=== PATIENT | male | born 1950 | race Caucasian/White ===

== ENCOUNTER 2018-04-08 14:35 | Inpatient (IN) | payer MEDICARE ==
[2018-04-08] MEDS ORDERED: LIDOCAINE 1% 20 ML VIAL (10MG/ML) FOR IV START INTRADERMA ONE (15:20)
[2018-04-08] MEDS ORDERED: LACTATED RINGERS 1,000 ML IV ONE (15:38)
[2018-04-08] MEDS ORDERED: ONDANSETRON 4 MG/2 ML VIAL IVP STA (16:20)
[2018-04-08] MEDS ORDERED: DEXAMETHASONE SOD PHOSPHATE 10 MG/ML 1 ML VIAL IV STA (16:21)
[2018-04-08 16:47] LABS: Anion Gap 9 mmol/L; Blood Urea Nitrogen 14 mg/dL (9-20); Calcium 9.4 mg/dL (8.4-10.2); Carbon Dioxide 25 mmol/L (22-30); Chloride 103 mmol/L (98-107); Glucose 86 mg/dL (74-99); Potassium 4.1 mmol/L (3.5-5.1); Sodium 137 mmol/L (137-145)
[2018-04-08] MEDS ORDERED: ceFAZolin IN SWFI 2 GM/20 ML SYRINGE IVP ONE (17:08)
--- NOTE | 2018-04-08 17:37 | P.GSHP ---
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 He has been treated with antibiotics in the past and we discussed potentially excising this area and debriding to help with the healing process. He denies any fevers, chills, chest pain or shortness of breath. Its today for excision and debridement of his left medial thigh wound. - Review of Systems All systems: negative Past Medical History Past Medical History: Deep Vein Thrombosis (DVT), GERD/Reflux, Hyperlipidemia, Hypertension, Osteoarthritis (OA), Rheumatoid Arthritis (RA) History of Any Multi-Drug Resistant Organisms: None Reported Past Surgical History: Adenoidectomy, Appendectomy, Back Surgery, Heart Catheterization, Tonsillectomy Additional Past Surgical History / Comment(s): pt had surgery on Left leg 1 month ago, had blockage that was bypassed, pt unsure of name of procedure, Fem Pop Bypass. Cataract surgery, pionadal cyst Past Anesthesia/Blood Transfusion Reactions: No Reported Reaction Past Psychological History: No Psychological Hx Reported Smoking Status: Former smoker Past Alcohol Use History: Occasional Additional Past Alcohol Use History / Comment(s): pt hardly drinks etoh Past Drug Use History: None Reported - Past Family History Brother(s) Family Medical History: Diabetes Mellitus Father Family Medical History: Cancer Medications and Allergies Home Medications Medication Instructions Recorded Confirmed Type Aspirin 81 mg PO DAILY 04/08/18 04/08/18 History Atenolol/Chlorthalidone 1 tab PO DAILY 04/08/18 04/08/18 History [Atenolol-Chlorthalidone 50-25] Atorvastatin [Lipitor] 40 mg PO DAILY 04/08/18 04/08/18 History Cholecalciferol [Vitamin D3] 1,000 unit PO DAILY 04/08/18 04/08/18 History Cilostazol [Pletal] 100 mg PO DAILY 04/08/18 04/08/18 History Clopidogrel [Plavix] 75 mg PO DAILY 04/08/18 04/08/18 History Gabapentin [Neurontin] 1 tab PO HS 04/08/18 04/08/18 History Lisinopril [Zestril] 5 mg PO DAILY 04/08/18 04/08/18 History Tiotropium 18 Mcg/Puff [Spiriva] 18 mcg INHALATION DAILY 04/08/18 04/08/18 History clonazePAM [Clonazepam] 1 mg PO HS 04/08/18 04/08/18 History Allergies Allergy/AdvReac Type Severity Reaction Status Date / Time Sulfa (Sulfonamide Allergy Unknown Verified 04/08/18 16:30 Antibiotics) Surgical - Exam Vital Signs Temp Pulse Resp BP Pulse Ox 97.4 F L 67 16 118/72 98 04/08/18 15:05 04/08/18 15:05 04/08/18 15:05 04/08/18 15:05 04/08/18 15:05 Left medial thigh wound measuring approximately 1 x 1 cm with approximately 2 cm of tunneling. There is erythema surrounding the area and cloudy discharge. There is no malodor. - General well developed, well nourished, no distress - Eyes PERRL, normal ocular movement - ENT normal pinna, normal nares - Neck trachea midline - Respiratory normal expansion, normal respiratory effort - Cardiovascular Rhythm: regular - Abdomen Abdomen: soft, non tender Hernia: none - Integumentary no growths - Neurologic normal coordination - Psychiatric oriented to time, oriented to person, oriented to place Results - Labs 04/08/18 15:32 Diabetes panel 04/08/18 Range/Units 15:32 Sodium 137 (137-145) mmol/L Potassium 4.1 (3.5-5.1) mmol/L Chloride 103 (98-107) mmol/L Carbon Dioxide 25 (22-30) mmol/L BUN 14 (9-20) mg/dL Creatinine 0.75 (0.66-1.25) mg/dL Glucose 86 (74-99) mg/dL Calcium 9.4 (8.4-10.2) mg/dL Calcium panel 04/08/18 Range/Units 15:32 Calcium 9.4 (8.4-10.2) mg/dL Pituitary panel 04/08/18 Range/Units 15:32 Sodium 137 (137-145) mmol/L Potassium 4.1 (3.5-5.1) mmol/L Chloride 103 (98-107) mmol/L Carbon Dioxide 25 (22-30) mmol/L BUN 14 (9-20) mg/dL Creatinine 0.75 (0.66-1.25) mg/dL Glucose 86 (74-99) mg/dL Calcium 9.4 (8.4-10.2) mg/dL Adrenal panel 04/08/18 Range/Units 15:32 Sodium 137 (137-145) mmol/L Potassium 4.1 (3.5-5.1) mmol/L Chloride 103 (98-107) mmol/L Carbon Dioxide 25 (22-30) mmol/L BUN 14 (9-20) mg/dL Creatinine 0.75 (0.66-1.25) mg/dL Glucose 86 (74-99) mg/dL Calcium 9.4 (8.4-10.2) mg/dL Assessment and Plan Assessment: Nonhealing Left medial thigh wound Plan: OR for excision and debridement
[2018-04-08] MEDS ORDERED: fentaNYL (PF) 50 MCG/ML 2 ML AMP ONE (17:40)
[2018-04-08] MEDS ORDERED: MIDAZOLAM 2 MG/2 ML VIAL ONE (17:40)
[2018-04-08] MEDS ORDERED: PROPOFOL 10 MG/ML 20 ML VIAL IV ONE (17:40)
[2018-04-08] MEDS ORDERED: KETAMINE 10 MG/ML 20 ML VIAL ONE (17:40)
[2018-04-08] MEDS ORDERED: SODIUM CHLORIDE 0.9% 50 ML with ceFAZolin 2,000 MG IV ONE ×2 (17:50)
[2018-04-08] MEDS ORDERED: BUPIVACAIN-EPI 0.5%-1:200,000 30 ML VIAL SQ ONE ×2 (17:54)
[2018-04-08] MEDS ORDERED: FAMOTIDINE 20 MG/2 ML VIAL IV ONE (18:36)
[2018-04-08] MEDS ORDERED: MAG HYDROX/AL HYDROX/SIMETH 30 ML CUP PO PRN (18:37)
[2018-04-08] MEDS ORDERED: NALOXONE 0.4 MG/ML 1 ML VIAL IV PRN (18:49)
[2018-04-08] MEDS ORDERED: HYDROmorphone 1 MG/ML 1 ML SYRINGE IVP PRN (18:49)
[2018-04-08] MEDS ORDERED: ALBUTEROL NEBULIZED 1.25 MG/3 ML INHALATION ONE (18:50)
--- NOTE | 2018-04-08 19:04 | XR ---
EXAMINATION TYPE: XR chest 1V portable DATE OF EXAM: 04/08/2018 COMPARISON: 09/26/2008 HISTORY: Aspiration TECHNIQUE: Single frontal view of the chest is obtained. FINDINGS: Heart and mediastinum are normal. Lungs are clear. Costophrenic angles are clear. There ar e chest leads. Bony thorax is intact. IMPRESSION: No active cardiopulmonary disease. Normal heart. No change.
--- NOTE | 2018-04-08 19:33 | P.OP ---
Date of Procedure: 04/08/18 Preoperative Diagnosis: Left medial thigh wound Postoperative Diagnosis: Left medial thigh abscess with infected graft remnant Procedure(s) Performed: Excisional debridement of left medial thigh wound and excision of portion of previous [place] bypass. Anesthesia: MAC Surgeon: Fish Fulton Estimated Blood Loss (ml): 20 Pathology: other (Left medial thigh wound culture, tissue culture, portion of infected bypass remnant) Condition: stable Disposition: PACU Indications for Procedure: 68-year-old gentleman who presented originally to the office with complaints of left medial thigh drainage from a previous femoral to popliteal bypass. Patient had bypass surgery revision months ago which those incisions have healed. His previous bypass which was performed years ago began getting indurated and over the last couple months has been draining. We have been doing local wound care with silver nitrate as well asl with no improvement. Upon his last visit he stated no improvement and drainage had increased therefore he presents today for excisional debridement of the area. He denies any fevers, chills, chest pain or shortness of breath. He did have antibiotic treatment as an outpatient on multiple occasions. Operative Findings: Left medial wound with dense scarring as well as a pocket of old blood and purulent drainage. There was an old graft that appeared to have murky fluid around it and coming out from it. Description of Procedure: After written informed consent was obtained the patient all risks benefits and competitions were described the patient is brought to the operative suite and laid in a supine position. The area of the left medial thigh was prepped and draped in usual sterile fashion after appropriate anesthetic was performed per the anesthesiologist. Timeout was performed in normal fashion antibiotics were administered prior to incision. An elliptical incision was then created around the area of drainage and induration. Dissection was then carried down with a scalpel around this area to healthy-appearing fat. Upon dissection approximately 3-4 cm deep there was a pocket of what appeared to be necrotic fat and purulent type tissue. The deep tissue was cultured as well as the fluid and the tissue was excised and upon excision it was noted to have a portion of the previous [place] bypass graft. This was ligated with a 3-0 silk suture. A portion of this bypass was cut and sent for pathology. The dissected tissue was resected and sent for pathology and culture. The wound was copiously irrigated with hydrogen peroxide as well as saline. Hemostasis was assured with electrocautery. There was no active bleeding and dissection was carried down to what appeared to be healthy fascia and muscle tissue. There was a track that went up towards the leg and thigh which was expressed of all fluid. The total area of wound measured 5 cm x 3 cm by proximally 3-4 cm in depth. The area was then packed with Betadine soaked gauze. The area was cleansed and dressings were placed. The patient tolerated the procedure well and was sent to PACU for recovery.
[2018-04-08] MEDS: GABAPENTIN 400 MG CAP PO SCH (21:48)
[2018-04-08] MEDS: clonazePAM 1 MG TAB PO SCH (21:48)
[2018-04-08] MEDS ORDERED: BENZOCAINE/MENTHOL LOZENG 1 EACH LOZENGE MUCOUS MEM PRN (23:13)
[2018-04-09] MEDS: HEPARIN SODIUM,PORCINE 5,000 UNIT/ML 1 ML VIAL SQ SCH ×4 (01:50→22:57)
[2018-04-09] MEDS: ceFAZolin IN SWFI 2 GM/20 ML SYRINGE IVP SCH ×4 (01:51→22:57)
[2018-04-09] MEDS: oxyCODONE-APAP 5-325MG 1 EACH TAB PO PRN ×5 (02:18→22:56)
[2018-04-09 06:45] LABS: Basophils % (A) 0 %; Eosinophils % (A) 0 %; Lymphocytes # (A) 0.7 k/uL (1.0-4.8); Lymphocytes % (A) 4 %; MCH 27.3 pg (25.0-35.0); MCHC 31.6 g/dL (31.0-37.0); MCV 86.5 fL (80.0-100.0); Mean Platelet Volume 7.3; Monocytes # (A) 0.8 k/uL (0-1.0); Monocytes % (A) 4 %; Neutrophils % (A) 91 %; Platelet Count 242 k/uL (150-450); RBC 4.74 m/uL (4.30-5.90); RDW 15.6 % (11.5-15.5); WBC 18.7 k/uL (3.8-10.6)
[2018-04-09] MEDS: IPRATROPIUM 0.5 MG/2.5 ML NEBU INHALATION SCH ×4 (07:21→19:25)
--- NOTE | 2018-04-09 08:33 | P.PN ---
Subjective Progress Note Date: 04/09/18 Principal diagnosis: Infected fem-pop bypass graft Patient had the infected portion of the fem-pop [place] graft removed in the OR yesterday by Dr. Fulton. He is without complaints today. Objective - Vital Signs Vital signs: Vital Signs Temp 98.7 F 04/09/18 01:10 Pulse 74 04/09/18 07:24 Resp 16 04/09/18 01:10 BP 106/61 04/09/18 01:10 Pulse Ox 92 L 04/09/18 01:10 Intake & Output 04/08/18 04/09/18 04/09/18 18:59 06:59 18:59 Intake Total 1100 1230 Output Total 25 1310 Balance 1075 -80 Weight 97.522 kg Intake: IV 1100 Intake, IV Titration 690 Amount Lactated Ringers 1,000 ml 690 @ 0 mls/hr IV .[facility] Rx#:[id number] Oral 540 Output: Urine 1310 Estimated Blood Loss 25 Other: Voiding Method Urinal # Voids 1 - Exam The thigh wound is clean. There was a bit of oozing from the base. - Labs CBC & Chem 7: 04/09/18 06:15 04/08/18 15:32 Labs: Abnormal Lab Results - Last 24 Hours (Table) 04/09/18 Range/Units 06:15 WBC 18.7 H (3.8-10.6) k/uL RDW 15.6 H (11.5-15.5) % Neutrophils # 17.0 H (1.3-7.7) k/uL Lymphocytes # 0.7 L (1.0-4.8) k/uL Microbiology - Last 24 Hours (Table) 04/08/18 18:15 Tissue Culture - Preliminary Thigh - Left 04/08/18 18:15 Anaerobic Culture - Preliminary Thigh - Left 04/08/18 18:15 Fungal Culture - Preliminary Thigh - Left 04/08/18 18:15 Acid Fast Bacilli Culture - Preliminary Thigh - Left 04/08/18 18:15 Anaerobic Culture - Preliminary Thigh - Left 04/08/18 18:15 Tissue Culture - Preliminary Thigh - Left 04/08/18 18:15 Fungal Culture - Preliminary Thigh - Left 04/08/18 18:15 Acid Fast Bacilli Culture - Preliminary Thigh - Left 08/08/18 18:15 Fungal Culture - Preliminary Thigh - Left 04/08/18 18:15 Wound Culture - Preliminary Thigh - Left 04/08/18 18:15 Anaerobic Culture - Preliminary Thigh - Left Assessment and Plan (1) Infection, vascular device Current Visit: Yes Status: Acute Code(s): T82.7XXA - INFECT/INFLM REACT D/T OTH CARDI/VASC DEV/IMPLNT/GRFT, INIT SNOMED Code(s): 62471208 Plan: Dr. Jaime will be seeing the patient for infectious disease. We will place absorptive silver in the wound today. Hopefully by tomorrow the mild bleeding will subside and we will be able to place a wound VAC and have the patient discharged. He is to keep the legs elevated as much as possible in the meantime.
[2018-04-09] MEDS: LISINOPRIL 5 MG TAB PO SCH (09:27)
[2018-04-09] MEDS: ATORVASTATIN 40 MG TAB PO SCH (09:27)
[2018-04-09] MEDS: ASPIRIN 81 MG PO SCH (09:28)
[2018-04-09] MEDS: ATENOLOL 50 MG TAB PO SCH (09:28)
[2018-04-09] MEDS: CHOLECALCIFEROL 1,000 UNIT TAB PO SCH (09:28)
[2018-04-09] MEDS: CHLORTHALIDONE 25 MG TAB PO SCH (09:29)
[2018-04-09] MEDS: CILOSTAZOL 100 MG TAB PO SCH (09:29)
[2018-04-09] MEDS: CLOPIDOGREL 75 MG TAB PO SCH (09:32)
--- NOTE | 2018-04-09 10:13 | P.CONS ---
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 Patient presented to vascular surgery with a medial 5 wound which has not healed over the past month. He was brought in by vascular surgery and underwent an excisional debridement of the left wound with a portion of the [place] bypass removed. Patient is scheduled for wound VAC placement today. He has been on. Surgical. Patient has been afebrile. White count is 18.7, BUN 14 crit is 0.75. Patient denies having any lightheadedness, dizziness, nausea, vomiting or diarrhea. Patient recently quit smoking about 1 month ago. Patient has history of rheumatoid arthritis but not currently on any medication. Review of Systems All systems: negative Constitutional: Denies chills, Denies fatigue, Denies fever, Denies poor appetite, Denies weight loss Eyes: denies blurred vision, denies pain Ears, nose, mouth and throat: Denies dental pain, Denies headache, Denies mouth pain, Denies sore throat, Denies vertigo Cardiovascular: Denies chest pain, Denies decreased exercise tolerance, Denies dyspnea on exertion, Denies edema, Denies leg edema, Denies lightheadedness, Denies shortness of breath, Denies syncope Respiratory: Denies cough Gastrointestinal: Denies abdominal pain, Denies diarrhea, Denies loss of appetite, Denies nausea, Denies vomiting Musculoskeletal: Reports low back pain, Denies myalgias Integumentary: Reports wounds, Denies pruritus, Denies rash Neurological: Denies numbness, Denies weakness Psychiatric: Denies anxiety, Denies depression Endocrine: Denies fatigue, Denies weight change Past Medical History Past Medical History: COPD, Deep Vein Thrombosis (DVT), GERD/Reflux, Hyperlipidemia, Hypertension, Osteoarthritis (OA), Rheumatoid Arthritis (RA) Additional Past Medical History / Comment(s): Popliteal artery aneurysm History of Any Multi-Drug Resistant Organisms: None Reported Past Surgical History: Adenoidectomy, Appendectomy, Back Surgery, Heart Catheterization, Tonsillectomy Additional Past Surgical History / Comment(s): Fem Pop Bypass secondary to popliteal artery aneurysm. Cataract surgery, pionadal cyst Past Anesthesia/Blood Transfusion Reactions: No Reported Reaction Past Psychological History: No Psychological Hx Reported Smoking Status: Former smoker Past Alcohol Use History: Occasional Additional Past Alcohol Use History / Comment(s): pt hardly drinks etoh Past Drug Use History: None Reported Additional Drug Use History / Comment(s): Patient was a smoker of one and half packs per day for greater than 40 years and quit one month ago. No illicit drug use. Rare alcohol intake. 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 He lives at home with his and there is one cat in the home. - Past Family History Brother(s) Family Medical History: Diabetes Mellitus Father Family Medical History: Cancer Medications and Allergies Home Medications Medication Instructions Recorded Confirmed Type Aspirin 81 mg PO DAILY 04/08/18 04/08/18 History Atenolol/Chlorthalidone 1 tab PO DAILY 04/08/18 04/08/18 History [Atenolol-Chlorthalidone 50-25] Atorvastatin [Lipitor] 40 mg PO DAILY 04/08/18 04/08/18 History Cholecalciferol [Vitamin D3] 1,000 unit PO DAILY 04/08/18 04/08/18 History Cilostazol [Pletal] 100 mg PO DAILY 04/08/18 04/08/18 History Clopidogrel [Plavix] 75 mg PO DAILY 04/08/18 04/08/18 History Gabapentin [Neurontin] 1 tab PO HS 04/08/18 04/08/18 History Lisinopril [Zestril] 5 mg PO DAILY 04/08/18 04/08/18 History Tiotropium 18 Mcg/Puff [Spiriva] 18 mcg INHALATION DAILY 04/08/18 04/08/18 History clonazePAM [Clonazepam] 1 mg PO HS 04/08/18 04/08/18 History Allergies Allergy/AdvReac Type Severity Reaction Status Date / Time Sulfa (Sulfonamide Allergy Unknown Verified 04/08/18 16:30 Antibiotics) Physical Exam Vitals: Vital Signs Temp Pulse Pulse Resp BP Pulse Ox 04/09/18 07:24 74 04/09/18 07:15 98.9 F 87 18 116/79 93 L 04/09/18 05:49 86 04/09/18 01:10 98.7 F 110 H 16 106/61 92 L 04/09/18 00:01 16 04/08/18 21:48 98.8 F 77 18 131/81 97 04/08/18 21:40 98.8 F 70 18 136/84 94 L 04/08/18 21:25 80 118/64 04/08/18 21:10 78 131/72 94 L 04/08/18 20:55 80 18 137/82 96 04/08/18 20:40 98.9 F 84 18 156/87 96 04/08/18 20:25 79 143/89 95 04/08/18 20:10 81 143/77 95 04/08/18 19:55 76 136/82 94 L 04/08/18 19:40 98.8 F 77 17 131/80 92 L 04/08/18 19:15 78 18 122/66 100 04/08/18 19:00 76 20 124/77 100 04/08/18 18:45 79 20 133/77 96 04/08/18 18:35 98 F 77 20 126/75 94 L 04/08/18 15:05 97.4 F L 67 16 118/72 98 Intake and Output 04/08/18 04/09/18 04/09/18 22:59 06:59 14:59 Intake Total 1100 1230 240 Output Total 125 1210 Balance 975 20 240 Intake: IV 1100 Intake, IV Titration 690 Amount Lactated Ringers 1,000 ml 690 @ 0 mls/hr IV .[facility] Rx#:[id number] Oral 540 240 Output: Urine 100 1210 Estimated Blood Loss 25 Other: Voiding Method Urinal # Voids 1 Gen: This is a 68-year-old male. He is sitting up in bed and appears to be comfortable and in no acute distress. HEENT: Head is atraumatic, normocephalic. Pupils equal, round. Sclerae is anicteric. Oral mucous membranes are moist. NECK: Supple. No JVD. No lymphadenopathy. No thyromegaly. LUNGS: Clear to auscultation. No wheezes or rhonchi. No intercostal retractions. HEART: Regular rate and rhythm. No murmur. ABDOMEN: Soft. Bowel sounds are present. No masses. No tenderness. EXTREMITIES: No pedal edema. No calf tenderness. Dorsalis pedis 1+ bilaterally. Patient has a dressing in place to the left thigh that was not removed during exam. Deferred to Dr. Jaime. NEUROLOGICAL: Patient is awake, alert and oriented x3. Cranial nerves 2 through 12 are grossly intact. Results Results: Laboratory Results WBC 18.7 k/uL (3.8-10.6) H 04/09/18 06:15 RBC 4.74 m/uL (4.30-5.90) 04/09/18 06:15 Hgb 13.0 gm/dL (13.0-17.5) 04/09/18 06:15 Hct 41.0 % (39.0-53.0) 04/09/18 06:15 MCV 86.5 fL (80.0-100.0) 04/09/18 06:15 MCH 27.3 pg (25.0-35.0) 04/09/18 06:15 MCHC 31.6 g/dL (31.0-37.0) 04/09/18 06:15 RDW 15.6 % (11.5-15.5) H 04/09/18 06:15 Plt Count 242 k/uL (150-450) 04/09/18 06:15 Neutrophils % 91 % 04/09/18 06:15 Lymphocytes % 4 % 04/09/18 06:15 Monocytes % 4 % 04/09/18 06:15 Eosinophils % 0 % 04/09/18 06:15 Basophils % 0 % 04/09/18 06:15 Neutrophils # 17.0 k/uL (1.3-7.7) H 04/09/18 06:15 Lymphocytes # 0.7 k/uL (1.0-4.8) L 04/09/18 06:15 Monocytes # 0.8 k/uL (0-1.0) 04/09/18 06:15 Eosinophils # 0.0 k/uL (0-0.7) 04/09/18 06:15 Basophils # 0.0 k/uL (0-0.2) 04/09/18 06:15 Sodium 137 mmol/L (137-145) 04/08/18 15:32 Potassium 4.1 mmol/L (3.5-5.1) 04/08/18 15:32 Chloride 103 mmol/L (98-107) 04/08/18 15:32 Carbon Dioxide 25 mmol/L (22-30) 04/08/18 15:32 Anion Gap 9 mmol/L 04/08/18 15:32 BUN 14 mg/dL (9-20) 04/08/18 15:32 Creatinine 0.75 mg/dL (0.66-1.25) 04/08/18 15:32 Est GFR (CKD-EPI)AfAm >90 (>60 ml/min/1.73 sqM) 04/08/18 15:32 Est GFR (CKD-EPI)NonAf >90 (>60 ml/min/1.73 sqM) 04/08/18 15:32 Glucose 86 mg/dL (74-99) 04/08/18 15:32 Calcium 9.4 mg/dL (8.4-10.2) 04/08/18 15:32 CBC & Chem 7: 04/09/18 06:15 04/08/18 15:32 Labs: Abnormal Lab Results - Last 24 Hours (Table) 04/09/18 Range/Units 06:15 WBC 18.7 H (3.8-10.6) k/uL RDW 15.6 H (11.5-15.5) % Neutrophils # 17.0 H (1.3-7.7) k/uL Lymphocytes # 0.7 L (1.0-4.8) k/uL Microbiology - Last 24 Hours (Table) 04/08/18 18:15 Gram Stain - Preliminary Thigh - Left Tissue Culture - Preliminary 04/08/18 18:15 Gram Stain - Preliminary Thigh - Left Wound Culture - Preliminary 04/08/18 18:15 Tissue Culture - Preliminary Thigh - Left 04/08/18 18:15 Anaerobic Culture - Preliminary Thigh - Left 04/08/18 18:15 Fungal Culture - Preliminary Thigh - Left 04/08/18 18:15 Acid Fast Bacilli Culture - Preliminary Thigh - Left 04/08/18 18:15 Anaerobic Culture - Preliminary Thigh - Left 04/08/18 18:15 Fungal Culture - Preliminary Thigh - Left 04/08/18 18:15 Acid Fast Bacilli Culture - Preliminary Thigh - Left 04/08/18 18:15 Fungal Culture - Preliminary Thigh - Left 04/08/18 18:15 Anaerobic Culture - Preliminary Thigh - Left Assessment and Plan Plan: This is a 68-year-old male patient who presented to the hospital with wound to the medial left thigh status post excisional debridement and removal of previous [place] bypass. Patient is currently on Kefzol and will be started vanco. Wound VAC has been ordered for today. Lantus for discharge home tomorrow. Antibiotics will be arranged for discharge. Continue supportive care. Further recommendations as patient progresses. The above dictated assessment and findings were discussed with Dr. Jaime. The impression and plan of care have been directed as dictated. Luba Donohue nurse practitioner acting as scribe for Dr. Jaime.
[2018-04-09] MEDS ORDERED: VANCOMYCIN IV PER PHARMACY 1 EACH MISC MISCELLANE PRN (11:20)
[2018-04-09 11:56] VITALS: BMI 30.8
[2018-04-09] MEDS: VANCOMYCIN 1,750 MG in SODIUM CHLORIDE 0.9% 500 ML IVPB SCH ×2 (12:34→20:20)
--- NOTE | 2018-04-09 15:54 | P.CONS ---
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 Fulton and has had a nonhealing medial thigh wound over the past month. Patient came in for an elective excisional debridement of the left medial thigh wound and excision of portion of previous [place] bypass with Dr. Fulton yesterday. Patient has known medical history of deep vein thrombosis, GERD, hyperlipidemia, hypertension, osteoarthritis, rheumatoid arthritis, heart cath, COPD and ex-smoker. Patient has been started on his home medication per Dr. Fulton. Dr. Jaime has been consulted for infectious disease. Patient is currently on Kefzol and vancomycin. Denies chest pain or shortness of breath at this time. Patient denies nausea vomiting or diarrhea. Patient denies any urinary frequency urgency. Review of Systems Please refer to HPI otherwise unremarkable Past Medical History Past Medical History: COPD, Deep Vein Thrombosis (DVT), GERD/Reflux, Hyperlipidemia, Hypertension, Osteoarthritis (OA), Rheumatoid Arthritis (RA) Additional Past Medical History / Comment(s): Popliteal artery aneurysm History of Any Multi-Drug Resistant Organisms: None Reported Past Surgical History: Adenoidectomy, Appendectomy, Back Surgery, Heart Catheterization, Tonsillectomy Additional Past Surgical History / Comment(s): Fem Pop Bypass secondary to popliteal artery aneurysm. Cataract surgery, pionadal cyst Past Anesthesia/Blood Transfusion Reactions: No Reported Reaction Past Psychological History: No Psychological Hx Reported Smoking Status: Former smoker Past Alcohol Use History: Occasional Additional Past Alcohol Use History / Comment(s): pt hardly drinks etoh Past Drug Use History: None Reported Additional Drug Use History / Comment(s): Patient was a smoker of one and half packs per day for greater than 40 years and quit one month ago. No illicit drug use. Rare alcohol intake. 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 He lives at home with his and there is one cat in the home. - Past Family History Brother(s) Family Medical History: Diabetes Mellitus Father Family Medical History: Cancer Medications and Allergies Home Medications Medication Instructions Recorded Confirmed Type Aspirin 81 mg PO DAILY 04/08/18 04/08/18 History Atenolol/Chlorthalidone 1 tab PO DAILY 04/08/18 04/08/18 History [Atenolol-Chlorthalidone 50-25] Atorvastatin [Lipitor] 40 mg PO DAILY 04/08/18 04/08/18 History Cholecalciferol [Vitamin D3] 1,000 unit PO DAILY 04/08/18 04/08/18 History Cilostazol [Pletal] 100 mg PO DAILY 04/08/18 04/08/18 History Clopidogrel [Plavix] 75 mg PO DAILY 04/08/18 04/08/18 History Gabapentin [Neurontin] 1 tab PO HS 04/08/18 04/08/18 History Lisinopril [Zestril] 5 mg PO DAILY 04/08/18 04/08/18 History Tiotropium 18 Mcg/Puff [Spiriva] 18 mcg INHALATION DAILY 04/08/18 04/08/18 History clonazePAM [Clonazepam] 1 mg PO HS 04/08/18 04/08/18 History Allergies Allergy/AdvReac Type Severity Reaction Status Date / Time Sulfa (Sulfonamide Allergy Unknown Verified 04/08/18 16:30 Antibiotics) Physical Exam Vitals: Vital Signs Temp Pulse Pulse Resp BP Pulse Ox 04/09/18 14:20 97.8 F 82 16 94/54 93 L 04/09/18 07:24 74 04/09/18 07:15 98.9 F 87 18 116/79 93 L 04/09/18 05:49 86 04/09/18 01:10 98.7 F 110 H 16 106/61 92 L 04/09/18 00:01 16 04/08/18 21:48 98.8 F 77 18 131/81 97 04/08/18 21:40 98.8 F 70 18 136/84 94 L 04/08/18 21:25 80 118/64 04/08/18 21:10 78 131/72 94 L 04/08/18 20:55 80 18 137/82 96 04/08/18 20:40 98.9 F 84 18 156/87 96 04/08/18 20:25 79 143/89 95 04/08/18 20:10 81 143/77 95 04/08/18 19:55 76 136/82 94 L 04/08/18 19:40 98.8 F 77 17 131/80 92 L 04/08/18 19:15 78 18 122/66 100 04/08/18 19:00 76 20 124/77 100 04/08/18 18:45 79 20 133/77 96 04/08/18 18:35 98 F 77 20 126/75 94 L Intake and Output 04/09/18 04/09/18 04/09/18 06:59 14:59 22:59 Intake Total 1230 358 Output Total 1210 Balance 20 358 Intake: Intake, IV Titration 690 Amount Lactated Ringers 1,000 ml 690 @ 0 mls/hr IV [facility] Rx#:[id number] Oral 540 358 Output: Urine 1210 Other: Voiding Method Urinal # Voids 1 1 Weight 97.522 kg Head normocephalic Neck supple Lungs diminished bilaterally Heart regular rate and rhythm S1-S2, no rub or gallop Abdomen is soft nontender nondistended positive bowel sounds no hepatosplenomegaly Extremities no edema. Left medial thigh incision. Dressing is currently clean dry and intact Neuro alert and orientated to 3 Results CBC & Chem 7: 04/09/18 06:15 04/08/18 15:32 Labs: Abnormal Lab Results - Last 24 Hours (Table) 04/09/18 Range/Units 06:15 WBC 18.7 H (3.8-10.6) k/uL RDW 15.6 H (11.5-15.5) % Neutrophils # 17.0 H (1.3-7.7) k/uL Lymphocytes # 0.7 L (1.0-4.8) k/uL Microbiology - Last 24 Hours (Table) 04/08/18 18:15 Gram Stain - Preliminary Thigh - Left Tissue Culture - Preliminary 04/08/18 18:15 Gram Stain - Preliminary Thigh - Left Wound Culture - Preliminary 04/08/18 18:15 Tissue Culture - Preliminary Thigh - Left 04/08/18 18:15 Anaerobic Culture - Preliminary Thigh - Left 04/08/18 18:15 Fungal Culture - Preliminary Thigh - Left 04/08/18 18:15 Acid Fast Bacilli Culture - Preliminary Thigh - Left 04/08/18 18:15 Anaerobic Culture - Preliminary Thigh - Left 04/08/18 18:15 Fungal Culture - Preliminary Thigh - Left 04/08/18 18:15 Acid Fast Bacilli Culture - Preliminary Thigh - Left 04/08/18 18:15 Fungal Culture - Preliminary Thigh - Left 04/08/18 18:15 Anaerobic Culture - Preliminary Thigh - Left Assessment and Plan Assessment: 1. Status post excisional debridement and removal of previous cortex Bypass. 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 Jaime for infectious disease has been consulted and patient currently on Kefzol and vancomycin. Plan for wound VAC for tomorrow and possible discharge with wound vac. Pain medication per surgical team. 2. History of deep vein thrombosis 3. History of GERD 4. History of hyperlipidemia. Continue Lipitor 5. History of hypertension. Continue home medication 6. History of osteoarthritis 7. History of rheumatoid arthritis DVT prophylaxis heparinand GI prophylaxis Pepcid Thank you for this consultation we will continue to follow patient throughout stay. Time with Patient: Greater than 30 (Greater than 60% of the total time spent in counseling and coordination of care. I performed an examination of the patient and discussed their management with the Nurse Practitioner. I have reviewed the Nurse Practitioner's notes and agree with the documented findings and plan of care)
--- NOTE | 2018-04-09 18:49 | XR ---
EXAMINATION TYPE: XR chest 2V DATE OF EXAM: 04/09/2018 COMPARISON: Yesterday HISTORY: Short of breath TECHNIQUE: Frontal and lateral views of the chest are obtained. FINDINGS: There is no heart failure nor confluent pneumonic infiltrate. Costophrenic angles are duncan r. Heart size is normal. Thoracic aorta shows mild atheromatous change. Bony thorax appears intact. IMPRESSION: No active cardiopulmonary disease. No change.
[2018-04-09] MEDS: GABAPENTIN 400 MG CAP PO SCH (20:21)
[2018-04-09] MEDS: clonazePAM 1 MG TAB PO SCH (20:21)
--- NOTE | 2018-04-09 23:26 | P.CON ---
Consult Note - . 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 Patient presented to vascular surgery with a medial 5 wound which has not healed over the past month. He was brought in by vascular surgery and underwent an excisional debridement of the left wound with a portion of the [place] bypass removed. Patient is scheduled for wound VAC placement today. He has been on. Surgical. Patient has been afebrile. White count is 18.7, BUN 14 crit is 0.75. Patient denies having any lightheadedness, dizziness, nausea, vomiting or diarrhea. Patient recently quit smoking about 1 month ago. Patient has history of rheumatoid arthritis but not currently on any medication. Please see the consult is dictated by nurse practitioner Mrs. Luba Donohue. Pleasant 68-year-old male, his arrives in relates that his revision surgery at the outside hospital occurred in October. And it is important that the revision site that time is intact, it is the old bypass site from years ago that is currently problematic and required surgical intervention to remove the infected material. The patient is quite comfortable at this point the patient denies fevers or chills and pain is improving. Cultures are in progress and what is occurring vancomycin therapy is being utilized in addition to the postoperative Ancef. Cultures will direct further antibiotic therapy. The case is discussed with the cardiothoracic/vascular surgery team, the site is packed with some Aquacel silver and wound VAC will be applied tomorrow when there is improvement of the postoperative bleeding. Patient will be followed in wound healing center. Will likely require outpatient intravenous antibiotic therapy given his complexity of the wound. I agree with evaluation, assessment and plan is dictated by nurse practitioner Mrs. Luba Donohue.
[2018-04-10] MEDS: oxyCODONE-APAP 5-325MG 1 EACH TAB PO PRN ×5 (03:49→23:10)
[2018-04-10] MEDS: IPRATROPIUM 0.5 MG/2.5 ML NEBU INHALATION SCH ×4 (07:05→19:58)
[2018-04-10 07:06] LABS: Basophils % (A) 0 %; Eosinophils # (A) 0.5 k/uL (0-0.7); Eosinophils % (A) 5 %; Lymphocytes # (A) 1.3 k/uL (1.0-4.8); Lymphocytes % (A) 14 %; MCH 28.3 pg (25.0-35.0); MCHC 32.4 g/dL (31.0-37.0); MCV 87.4 fL (80.0-100.0); Mean Platelet Volume 7.4; Monocytes # (A) 0.7 k/uL (0-1.0); Monocytes % (A) 7 %; Neutrophils # (A) 6.7 k/uL (1.3-7.7); Neutrophils % (A) 71 %; Platelet Count 213 k/uL (150-450); RBC 4.58 m/uL (4.30-5.90); RDW 15.4 % (11.5-15.5); WBC 9.4 k/uL (3.8-10.6)
[2018-04-10 07:30] LABS: Anion Gap 5 mmol/L; Blood Urea Nitrogen 18 mg/dL (9-20); Calcium 8.8 mg/dL (8.4-10.2); Carbon Dioxide 29 mmol/L (22-30); Chloride 105 mmol/L (98-107); Glucose 81 mg/dL (74-99); Potassium 4.7 mmol/L (3.5-5.1); Sodium 139 mmol/L (137-145)
[2018-04-10] MEDS: CLOPIDOGREL 75 MG TAB PO SCH (08:27)
[2018-04-10] MEDS: LISINOPRIL 5 MG TAB PO SCH (08:27)
[2018-04-10] MEDS: ASPIRIN 81 MG PO SCH (08:27)
[2018-04-10] MEDS: FAMOTIDINE 20 MG TAB PO SCH (08:27)
[2018-04-10] MEDS: CILOSTAZOL 100 MG TAB PO SCH (08:27)
[2018-04-10] MEDS: ATENOLOL 50 MG TAB PO SCH (08:27)
[2018-04-10] MEDS: HEPARIN SODIUM,PORCINE 5,000 UNIT/ML 1 ML VIAL SQ SCH ×3 (08:28→23:10)
[2018-04-10] MEDS: CHLORTHALIDONE 25 MG TAB PO SCH (08:28)
[2018-04-10] MEDS: ATORVASTATIN 40 MG TAB PO SCH (08:28)
[2018-04-10] MEDS: CHOLECALCIFEROL 1,000 UNIT TAB PO SCH (08:30)
[2018-04-10] MEDS: VANCOMYCIN 1,750 MG in SODIUM CHLORIDE 0.9% 500 ML IVPB SCH ×2 (09:40→21:26)
[2018-04-10] MEDS ORDERED: MORPHINE SULFATE 2 MG/ML SYRINGE IVP STA (12:36)
--- NOTE | 2018-04-10 13:14 | P.PN ---
Subjective Progress Note Date: 04/10/18 Principal diagnosis: Left medial thigh abscess with infected graft remnant. Previous medical history of hypertension, hyperlipidemia, DVT, arthritis, previous tobacco dependence, left fem-pop bypass POD #2 excisional debridement of left medial thigh wound and excision of portion of previous [place] bypass. The patient is sitting up in bed in no acute distress. Does complain of some pain and his left thigh wound site, especially with manipulation. Wound was packed with absorptive silver and covered with 4 x 4 yesterday. Objective - Vital Signs Vital signs: Vital Signs Temp 97.9 F 04/10/18 07:00 Pulse 72 04/10/18 10:59 Resp 18 04/10/18 07:00 BP 105/66 04/10/18 07:00 Pulse Ox 95 04/10/18 07:00 Intake & Output 04/09/18 04/10/18 04/10/18 18:59 06:59 18:59 Intake Total 1138 500 240 Output Total 775 Balance 1138 -275 240 Weight 97.522 kg Intake: Intake, IV Titration 500 Amount Vancomycin 1,750 mg In 500 Sodium Chloride 0.9% 500 ml @ 167 mls/hr IVPB Q12HR [facility] Rx#:[id number] Oral 1138 240 Output: Urine 775 Other: Voiding Method Urinal # Voids 2 2 1 - Constitutional General appearance: Present: cooperative, no acute distress, obese - Respiratory Details: Lungs sounds clear bilaterally. Respirations even, nonlabored. Currently on room air with oxygen saturation 95%. - Cardiovascular Details: S1, S2 present. Regular rate and rhythm. No edema present. - Gastrointestinal Gastrointestinal Comment(s): Abdomen soft, nontender, nondistended. Active bowel sounds 4 quadrants. Tolerating diet. - Genitourinary Genitourinary Comment(s): Continues to void clear, yellow urine. - Integumentary Integumentary Comment(s): Skin is warm and dry with evidence of good perfusion. Left medial thigh wound clean with no active oozing. - Neurologic Neurologic: Present: CNII-XII intact - Musculoskeletal Musculoskeletal: Present: gait normal, strength equal bilaterally - Psychiatric Psychiatric: Present: A&O x's 3, appropriate affect, intact judgment & insight - Allied health notes Allied health notes reviewed: nursing - Labs CBC & Chem 7: 04/10/18 06:37 04/10/18 06:37 Labs: Microbiology - Last 24 Hours (Table) 04/08/18 18:15 Gram Stain - Preliminary Thigh - Left Wound Culture - Preliminary Gram Neg Bacilli 04/08/18 18:15 Acid Fast Bacilli Smear - Final Thigh - Left Acid Fast Bacilli Culture - Preliminary 04/08/18 18:15 Acid Fast Bacilli Smear - Final Thigh - Left Acid Fast Bacilli Culture - Preliminary 04/08/18 18:15 Gram Stain - Preliminary Thigh - Left Tissue Culture - Preliminary Assessment and Plan (1) Infection, vascular device Current Visit: Yes Status: Chronic Code(s): T82.7XXA - INFECT/INFLM REACT D/ T OTH CARDI/VASC DEV/IMPLNT/GRFT, INIT SNOMED Code(s): 97853838 Plan: Left medial thigh dressing removed, wound bed cleaned. Wound VAC applied with 125 mmHg continuous suction. Patient may be discharged to home from our standpoint when okay with other consultants. Antibiotics per infectious disease. Home care to change wound VAC Friday and Friday with Friday wound VAC change in the wound care center by Dr. Snyder. Patient should keep left leg elevated as much as possible. Medical management per primary care service. Time with Patient: Greater than 30
[2018-04-10] MEDS ORDERED: LIDOCAINE 2% INJ 20 MG/ML SQ ONE (15:17)
--- NOTE | 2018-04-10 15:29 | P.PN ---
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 Fulton and has had a nonhealing medial thigh wound over the past month. Patient came in for an elective excisional debridement of the left medial thigh wound and excision of portion of previous [place] bypass with Dr. Fulton yesterday. Patient has known medical history of deep vein thrombosis, GERD, hyperlipidemia, hypertension, osteoarthritis, rheumatoid arthritis, heart cath, COPD and ex-smoker. Patient has been started on his home medication per Dr. Fulton. Dr. Jaime has been consulted for infectious disease. Patient is currently on Kefzol and vancomycin. Denies chest pain or shortness of breath at this time. Patient denies nausea vomiting or diarrhea. Patient denies any urinary frequency urgency. On 04/10/2018 patient currently resting comfortably in bed. Denies any shortness of breath or chest pain at this time. Incision site dressing remains clean dry and intact. Patient denies nausea vomiting or diarrhea. Objective - Vital Signs Vital signs: Vital Signs Temp 97.9 F 04/10/18 14:12 Pulse 71 04/10/18 14:12 Resp 16 04/10/18 14:12 BP 98/62 04/10/18 14:12 Pulse Ox 92 L 04/10/18 14:12 Intake & Output 04/09/18 04/10/18 04/10/18 18:59 06:59 18:59 Intake Total 3679 025 7570 Output Total 775 Balance 1138 -275 1020 Weight 97.522 kg Intake: Intake, IV Titration 500 Amount Vancomycin 1,750 mg In 500 Sodium Chloride 0.9% 500 ml @ 167 mls/hr IVPB Q12HR [facility] Rx#:[id number] Oral 1138 1020 Output: Urine 775 Other: Voiding Method Urinal # Voids 2 2 2 - Exam Head normocephalic Neck supple Lungs clear to auscultation bilaterally no wheezing or crackles Heart regular rate and rhythm S1-S2, no rub or gallop Abdomen is soft nontender nondistended positive bowel sounds no hepatosplenomegaly Extremities no edema. Left medial thigh dressing clean dry and intact Neuro alert and orientated to 3 - Labs CBC & Chem 7: 04/10/18 06:37 04/10/18 06:37 Labs: Microbiology - Last 24 Hours (Table) 04/08/18 18:15 Gram Stain - Preliminary Thigh - Left Wound Culture - Preliminary Gram Neg Bacilli 04/08/18 18:15 Acid Fast Bacilli Smear - Final Thigh - Left Acid Fast Bacilli Culture - Preliminary 04/08/18 18:15 Acid Fast Bacilli Smear - Final Thigh - Left Acid Fast Bacilli Culture - Preliminary 04/08/18 18:15 Gram Stain - Preliminary Thigh - Left Tissue Culture - Preliminary Assessment and Plan Assessment: 1. Status post excisional debridement and removal of previous cortex Bypass. 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 Jaime for infectious disease has been consulted and patient currently on Kefzol and vancomycin. Plan for wound VAC for tomorrow and possible discharge with wound vac. Pain medication per surgical team. Discussed case with Luba Mckeon [employer] with Dr. Jaime. Awaiting blood culture result the patient may require IV antibiotics upon discharge. wound vac to be applied per surgical team 2. History of deep vein thrombosis 3. History of GERD 4. History of hyperlipidemia. Continue Lipitor 5. History of hypertension. Continue home medication 6. History of osteoarthritis 7. History of rheumatoid arthritis DVT prophylaxis heparinand GI prophylaxis Pepcid Thank you for this consultation we will continue to follow patient throughout stay. I performed an examination of the patient and discussed their management with the Nurse Practitioner. I have reviewed the Nurse Practitioner's notes and agree with the documented findings and plan of care
--- NOTE | 2018-04-10 16:19 | IR ---
EXAMINATION TYPE: IR cvc insert >=5 years DATE OF EXAM: 04/10/2018 COMPARISON: NONE CLINICAL HISTORY: Infection Needs long-term intravenous access for antibiotics. PROCEDURE: After informed consent, the skin overlying the left basilic vein was localized with ultrasound and no tanja to be compressible and patent. An ultrasound image was obtained and submitted on the patient's c avila. The overlying skin was prepped and draped and Lidocaine was used for local anesthesia. A skin zachary was made with a scalpel. Access was gained to the vein under ultrasound guidance with a 21 gau ge needle and a 0.018 inch wire was advanced. Access site was dilated with Peel-Away sheath and cath eter tailored to the appropriate length and advanced such that the distal tip is at the cavoatrial ju nction. Spot image was obtained verifying placement. Catheter was fixed to the skin and a sterile d ressing was placed following hemostasis. Catheter was aspirated and flushed with saline. Patient wa s discharged in stable condition without complication. Maximal barrier technique is utilized. Ultras ound image is documented on the chart. Ultrasound used with sterile technique. Fluoro time and fluoroscopic images submitted to document procedure: 58 intraoperative C-arm images, 0.1 minutes fluoroscopy time IMPRESSION: STATUS POST ULTRASOUND AND FLUOROSCOPIC GUIDED PICC LINE PLACEMENT, READY FOR USE. THIS PROCEDURE WAS PERFORMED BY THE UNDERSIGNED.
[2018-04-10] MEDS: GABAPENTIN 400 MG CAP PO SCH (21:26)
[2018-04-10] MEDS: clonazePAM 1 MG TAB PO SCH (21:26)
--- NOTE | 2018-04-10 23:08 | P.PN ---
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 Patient presented to vascular surgery with a medial 5 wound which has not healed over the past month. He was brought in by vascular surgery and underwent an excisional debridement of the left wound with a portion of the [place] bypass removed. Patient is scheduled for wound VAC placement today. He has been on. Surgical. Patient has been afebrile. White count is 18.7, BUN 14 crit is 0.75. Patient denies having any lightheadedness, dizziness, nausea, vomiting or diarrhea. Patient recently quit smoking about 1 month ago. Patient has history of rheumatoid arthritis but not currently on any medication. This pleasant elderly gentleman relates it is feeling better today. However he states the surgical site with debridement occurred the wound VAC has been applied is been somewhat painful. He is given Percocet and does not believe it' s helping his pain. We'll need to work with the surgical team has to some further options as he gets closer to his discharge to home. Some pulmonary data became available yesterday and gram-negative bacilli was found and ceftazidime was added to the vancomycin. Objective - Vital Signs Vital signs: Vital Signs Temp 98.3 F 04/10/18 19:40 Pulse 72 04/10/18 15:51 Resp 16 04/10/18 19:40 BP 107/68 04/10/18 19:40 Pulse Ox 95 04/10/18 19:40 Intake & Output 04/10/18 04/10/18 04/11/18 06:59 18:59 06:59 Intake Total 500 1020 Output Total 775 Balance -275 1020 Intake: Intake, IV Titration 500 Amount Vancomycin 1,750 mg In 500 Sodium Chloride 0.9% 500 ml @ 167 mls/hr IVPB Q12HR [facility] Rx#:[id number] Oral 1020 Output: Urine 775 Other: Voiding Method Urinal # Voids 2 2 - Exam Gen: This is a 68-year-old male. He is sitting up in bed and appears to be comfortable and in no acute distress. HEENT: Head is atraumatic, normocephalic. Pupils equal, round. Sclerae is anicteric. Oral mucous membranes are moist. NECK: Supple. No JVD. No lymphadenopathy. No thyromegaly. LUNGS: Clear to auscultation. No wheezes or rhonchi. No intercostal retractions. HEART: Regular rate and rhythm. No murmur. ABDOMEN: Soft. Bowel sounds are present. No masses. No tenderness. EXTREMITIES: No pedal edema. No calf tenderness. Dorsalis pedis 1+ bilaterally. Wound VAC is now in place onto the left calf. NEUROLOGICAL: Patient is awake, alert and oriented x3. - Labs CBC & Chem 7: 04/10/18 06:37 04/10/18 06:37 Labs: Microbiology - Last 24 Hours (Table) 04/08/18 18:15 Anaerobic Culture - Preliminary Thigh - Left 04/08/18 18:15 Anaerobic Culture - Preliminary Thigh - Left 04/08/18 18:15 Gram Stain - Preliminary Thigh - Left Tissue Culture - Preliminary Gram Neg Bacilli 04/08/18 18:15 Gram Stain - Final Thigh - Left Wound Culture - Final Escherichia coli 04/08/18 18:15 Acid Fast Bacilli Smear - Final Thigh - Left Acid Fast Bacilli Culture - Preliminary 04/08/18 18:15 Acid Fast Bacilli Smear - Final Thigh - Left Acid Fast Bacilli Culture - Preliminary Laboratory Results WBC 9.4 k/uL (3.8-10.6) 04/10/18 06:37 RBC 4.58 m/uL (4.30-5.90) 04/10/18 06:37 Hgb 13.0 gm/dL (13.0-17.5) 04/10/18 06:37 Hct 40.0 % (39.0-53.0) 04/10/18 06:37 MCV 87.4 fL (80.0-100.0) 04/10/18 06:37 MCH 28.3 pg (25.0-35.0) 04/10/18 06:37 MCHC 32.4 g/dL (31.0-37.0) 04/10/18 06:37 RDW 15.4 % (11.5-15.5) 04/10/18 06:37 Plt Count 213 k/uL (150-450) 04/10/18 06:37 Neutrophils % 71 % 04/10/18 06:37 Lymphocytes % 14 % 04/10/18 06:37 Monocytes % 7 % 04/10/18 06:37 Eosinophils % 5 % 04/10/18 06:37 Basophils % 0 % 04/10/18 06:37 Neutrophils # 6.7 k/uL (1.3-7.7) 04/10/18 06:37 Lymphocytes # 1.3 k/uL (1.0-4.8) 04/10/18 06:37 Monocytes # 0.7 k/uL (0-1.0) 04/10/18 06:37 Eosinophils # 0.5 k/uL (0-0.7) 04/10/18 06:37 Basophils # 0.0 k/uL (0-0.2) 04/10/18 06:37 Sodium 139 mmol/L (137-145) 04/10/18 06:37 Potassium 4.7 mmol/L (3.5-5.1) 04/10/18 06:37 Chloride 105 mmol/L (98-107) 04/10/18 06:37 Carbon Dioxide 29 mmol/L (22-30) 04/10/18 06:37 Anion Gap 5 mmol/L 04/10/18 06:37 BUN 18 mg/dL (9-20) 04/10/18 06:37 Creatinine 0.92 mg/dL (0.66-1.25) 04/10/18 06:37 Est GFR (CKD-EPI)AfAm >90 (>60 ml/min/1.73 sqM) 04/10/18 06:37 Est GFR (CKD-EPI)NonAf 85 (>60 ml/min/1.73 sqM) 04/10/18 06:37 Glucose 81 mg/dL (74-99) 04/10/18 06:37 Calcium 8.8 mg/dL (8.4-10.2) 04/10/18 06:37 Microbiology 04/08/18 18:15 Thigh - Left Anaerobic Culture - Preliminary 04/08/18 18:15 Thigh - Left Anaerobic Culture - Preliminary 04/08/18 18:15 Thigh - Left Gram Stain - Preliminary 04/08/18 18:15 Thigh - Left Tissue Culture - PreliminaryGen: This is a 68- year-old male. He is sitting up in bed and appears to be comfortable and in no acute distress. HEENT: Head is atraumatic, normocephalic. Pupils equal, round. Sclerae is anicteric. Oral mucous membranes are moist. NECK: Supple. No JVD. No lymphadenopathy. No thyromegaly. LUNGS: Clear to auscultation. No wheezes or rhonchi. No intercostal retractions. HEART: Regular rate and rhythm. No murmur. ABDOMEN: Soft. Bowel sounds are present. No masses. No tenderness. EXTREMITIES: No pedal edema. No calf tenderness. Dorsalis pedis 1+ bilaterally. Patient has a dressing in place to the left thigh that was not removed during exam. Deferred to Dr. Jaime. NEUROLOGICAL: Patient is awake, alert and oriented x3. Gram Neg Bacilli 04/08/18 18:15 Thigh - Left Gram Stain - Final 04/08/18 18:15 Thigh - Left Wound Culture - Final Escherichia coli 04/08/18 18:15 Thigh - Left Acid Fast Bacilli Smear - Final 04/08/18 18:15 Thigh - Left Acid Fast Bacilli Culture - Preliminary 04/08/18 18:15 Thigh - Left Acid Fast Bacilli Smear - Final 04/08/18 18:15 Thigh - Left Acid Fast Bacilli Culture - Preliminary 04/08/18 18:15 Thigh - Left Tissue Culture - Preliminary 04/08/18 18:15 Thigh - Left Anaerobic Culture - Preliminary 04/08/18 18:15 Thigh - Left Fungal Culture - Preliminary 04/08/18 18:15 Thigh - Left Fungal Culture - Preliminary 04/08/18 18:15 Thigh - Left Fungal Culture - Preliminary Assessment and Plan (1) Infection, vascular device Narrative/Plan: Pleas04/10/2018 patient is feeling slightly better except for the pain at the site. Wound that was applied today. There is attempts to enhance his pain control before his next VAC changes required. Orders for outpatient wound VAC have been written. Antibiotic therapy remains H Other medications are added by the primary service and hopefully he'll have better pain control before discharge. Pleasant 68-year-old male, his arrives in relates that his revision surgery at the outside hospital occurred in October. And it is important that the revision site that time is intact, it is the old bypass site from years ago that is currently problematic and required surgical intervention to remove the infected material. The patient is quite comfortable at this point the patient denies fevers or chills and pain is improving. Cultures are in progress and what is occurring vancomycin therapy is being utilized in addition to the postoperative Ancef. Cultures will direct further antibiotic therapy. The case is discussed with the cardiothoracic/vascular surgery team, the site is packed with some Aquacel silver and wound VAC will be applied tomorrow when there is improvement of the postoperative bleeding. Patient will be followed in wound healing center. Will likely require outpatient intravenous antibiotic therapy given his complexity of the wound. Wound culture is still in process April 10 2018 patient is feeling slightly better except for the significant pain to the site. Percocet was given for the VAC change and apparently was not adequate. Wound culture is in process and needs to be finalized with gram-negative bacilli was found. Ceftazidime was added to the vancomycin. Over the next 48 hours cultures to be finalized and plans can be made for his outpatient antibiotic therapy. We'll have a wound VAC. He'll also be following up in the wound healing Center. Current Visit: Yes Status: Chronic Code(s): T82.7XXA - INFECT/INFLM REACT D/ T OTH CARDI/VASC DEV/IMPLNT/GRFT, INIT SNOMED Code(s): 26229946 (2) Gram-negative infection Current Visit: Yes Status: Acute Code(s): A49.9 - BACTERIAL INFECTION, UNSPECIFIED SNOMED Code(s): 945973826
[2018-04-11] MEDS: oxyCODONE-APAP 5-325MG 1 EACH TAB PO PRN ×4 (06:16→21:45)
[2018-04-11 07:18] LABS: Basophils % (A) 0 %; Eosinophils # (A) 0.6 k/uL (0-0.7); Eosinophils % (A) 7 %; HCT 40.4 % (39.0-53.0); HGB 13.2 gm/dL (13.0-17.5); Lymphocytes # (A) 1.1 k/uL (1.0-4.8); Lymphocytes % (A) 13 %; MCH 28.6 pg (25.0-35.0); MCHC 32.7 g/dL (31.0-37.0); MCV 87.6 fL (80.0-100.0); Mean Platelet Volume 7.3; Monocytes # (A) 0.7 k/uL (0-1.0); Monocytes % (A) 8 %; Neutrophils # (A) 6.1 k/uL (1.3-7.7); Neutrophils % (A) 70 %; Platelet Count 224 k/uL (150-450); RBC 4.61 m/uL (4.30-5.90); RDW 15.4 % (11.5-15.5); WBC 8.8 k/uL (3.8-10.6)
[2018-04-11 07:30] LABS: Anion Gap 8 mmol/L; Blood Urea Nitrogen 19 mg/dL (9-20); Calcium 9.4 mg/dL (8.4-10.2); Carbon Dioxide 29 mmol/L (22-30); Chloride 103 mmol/L (98-107); Glucose 87 mg/dL (74-99); Potassium 4.6 mmol/L (3.5-5.1); Sodium 140 mmol/L (137-145)
[2018-04-11] MEDS: IPRATROPIUM 0.5 MG/2.5 ML NEBU INHALATION SCH ×4 (07:44→19:14)
[2018-04-11] MEDS: HEPARIN SODIUM,PORCINE 5,000 UNIT/ML 1 ML VIAL SQ SCH ×2 (11:26→16:39)
[2018-04-11] MEDS: VANCOMYCIN 1,750 MG in SODIUM CHLORIDE 0.9% 500 ML IVPB SCH ×2 (11:28→20:55)
[2018-04-11] MEDS: LISINOPRIL 5 MG TAB PO SCH (11:29)
[2018-04-11] MEDS: CHLORTHALIDONE 25 MG TAB PO SCH (11:30)
[2018-04-11] MEDS: CHOLECALCIFEROL 1,000 UNIT TAB PO SCH (11:30)
[2018-04-11] MEDS: ASPIRIN 81 MG PO SCH (11:30)
[2018-04-11] MEDS: ATORVASTATIN 40 MG TAB PO SCH (11:30)
[2018-04-11] MEDS: ATENOLOL 50 MG TAB PO SCH (11:30)
[2018-04-11] MEDS: CILOSTAZOL 100 MG TAB PO SCH (11:31)
[2018-04-11] MEDS: CLOPIDOGREL 75 MG TAB PO SCH (11:32)
[2018-04-11] MEDS: FAMOTIDINE 20 MG TAB PO SCH (11:32)
--- NOTE | 2018-04-11 14:20 | P.PN ---
Subjective Progress Note Date: 04/11/18 This is a 68-year-old patient of with a history of a left fem-pop bypass secondary to popliteal artery aneurysm approximately [address] Fulton and has had a nonhealing medial thigh wound over the past month. Patient came in for an elective excisional debridement of the left medial thigh wound and excision of portion of previous [place] bypass with Dr. Fulton yesterday. Patient has known medical history of deep vein thrombosis, GERD, hyperlipidemia, hypertension, osteoarthritis, rheumatoid arthritis, heart cath, COPD and ex-smoker. Patient has been started on his home medication per Dr. Fulton. Dr. Jaime has been consulted for infectious disease. Patient is currently on Kefzol and vancomycin. Denies chest pain or shortness of breath at this time. Patient denies nausea vomiting or diarrhea. Patient denies any urinary frequency urgency. On 04/10/2018 patient currently resting comfortably in bed. Denies any shortness of breath or chest pain at this time. Incision site dressing remains clean dry and intact. Patient denies nausea vomiting or diarrhea. On 04/11/2018 patient is alert and oriented 3 in no apparent distress he complains of pain in his lower extremity mostly when having dressing change otherwise he denies any complaints there is no fever or chills no headache or dizziness no chest pain no shortness of breath no cough no nausea or vomiting no abdominal pain no diarrhea and no urinary symptoms Objective - Vital Signs Vital signs: Vital Signs Temp 98.1 F 04/11/18 00:10 Pulse 74 04/11/18 07:54 Resp 16 04/11/18 00:25 BP 101/66 04/11/18 00:10 Pulse Ox 96 04/11/18 00:10 Intake & Output 04/10/18 04/11/18 04/11/18 18:59 06:59 18:59 Intake Total 1020 1000 Output Total 600 Balance 1020 400 Intake: Intake, IV Titration 600 Amount Vancomycin 1,750 mg In 500 Sodium Chloride 0.9% 500 ml @ 167 mls/hr IVPB Q12HR [facility] Rx#:[id number] cefTAZidime 2 gm In 100 Sodium Chloride 0.9% 100 ml @ 100 mls/hr IVPB Q8HR [facility] Rx#:[id number] Oral 1020 400 Output: Urine 600 Other: Voiding Method Urinal # Voids 2 4 - Exam Head normocephalic and atraumatic Neck supple no JVD no goiter Lungs clear to auscultation bilaterally no wheezing or crackles Heart regular rate and rhythm S1-S2, no rub or gallop Abdomen is soft nontender nondistended positive bowel sounds no hepatosplenomegaly Extremities no edema. Left medial thigh dressing clean dry and intact Neuro alert and orientated to 3 - Labs CBC & Chem 7: 04/11/18 07:06 04/11/18 07:06 Labs: Microbiology - Last 24 Hours (Table) 04/08/18 18:15 Anaerobic Culture - Preliminary Thigh - Left 04/08/18 18:15 Anaerobic Culture - Preliminary Thigh - Left 04/08/18 18:15 Anaerobic Culture - Preliminary Thigh - Left 04/08/18 18:15 Gram Stain - Preliminary Thigh - Left Tissue Culture - Preliminary Gram Neg Bacilli 04/08/18 18:15 Gram Stain - Final Thigh - Left Wound Culture - Final Escherichia coli Assessment and Plan Plan: 1. Status post excisional debridement and removal of previous cortex Bypass. 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 Jaime for infectious disease has been consulted and patient currently on Kefzol and vancomycin. Plan for wound VAC for tomorrow and possible discharge with wound vac. Pain medication per surgical team. Discussed case with Luba Mckeon MEDICAL REIMBURSEMENT MANAGER with Dr. Jaime. Awaiting blood culture result the patient may require IV antibiotics upon discharge. wound vac to be applied per surgical team 2. History of deep vein thrombosis 3. History of GERD 4. History of hyperlipidemia. Continue Lipitor 5. History of hypertension. Continue home medication 6. History of osteoarthritis 7. History of rheumatoid arthritis DVT prophylaxis heparinand GI prophylaxis Pepcid Thank you for this consultation we will continue to follow patient throughout stay.
[2018-04-11] MEDS: GABAPENTIN 400 MG CAP PO SCH (20:45)
[2018-04-11] MEDS: clonazePAM 1 MG TAB PO SCH (20:45)
--- NOTE | 2018-04-11 23:51 | P.PN ---
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 Patient presented to vascular surgery with a medial 5 wound which has not healed over the past month. He was brought in by vascular surgery and underwent an excisional debridement of the left wound with a portion of the [place] bypass removed. Patient is scheduled for wound VAC placement today. He has been on. Surgical. Patient has been afebrile. White count is 18.7, BUN 14 crit is 0.75. Patient denies having any lightheadedness, dizziness, nausea, vomiting or diarrhea. Patient recently quit smoking about 1 month ago. Patient has history of rheumatoid arthritis but not currently on any medication. This pleasant elderly gentleman relates it is feeling better today. However he states the surgical site with debridement occurred the wound VAC has been applied is been somewhat painful. He is given Percocet and does not believe it' s helping his pain. We'll need to work with the surgical team has to some further options as he gets closer to his discharge to home. Some preliminary data became available yesterday and gram-negative bacilli was found and ceftazidime was added to the vancomycin. 04/11/2018 patient has had little improvement of the status. As noted there is a gram-negative infection it's been found. At this time it appears to be E. coli and the final results are pending. Likely be transitioned to ceftriaxone for treatment of this deep-seated infection related to the graft material in the groin. He may not require vancomycin therapy as an outpatient if no resistant gram-positive organisms are found. Patient understands be working for discharge, Friday. We'll utilize a wound VAC Objective - Vital Signs Vital signs: Vital Signs Temp 98.6 F 04/11/18 19:10 Pulse 84 04/11/18 19:21 Resp 16 04/11/18 20:00 BP 101/76 04/11/18 19:10 Pulse Ox 93 L 04/11/18 19:10 Intake & Output 04/11/18 04/11/18 04/12/18 06:59 18:59 06:59 Intake Total 1000 2340 240 Output Total 600 50 50 Balance 400 2290 190 Weight 97.522 kg Intake: Intake, IV Titration 600 600 Amount Vancomycin 1,750 mg In 500 500 Sodium Chloride 0.9% 500 ml @ 167 mls/hr IVPB Q12HR [facility] Rx#:[id number] cefTAZidime 2 gm In 100 100 Sodium Chloride 0.9% 100 ml @ 100 mls/hr IVPB Q8HR [facility] Rx#:[id number] Oral 400 1740 240 Output: Drainage 50 50 Left Thigh 50 50 Urine 600 Other: Voiding Method Urinal Urinal # Voids 4 - Labs CBC & Chem 7: 04/11/18 07:06 04/11/18 07:06 Labs: Microbiology - Last 24 Hours (Table) 04/08/18 18:15 Gram Stain - Preliminary Thigh - Left Tissue Culture - Preliminary Escherichia coli 04/10/18 14:50 Blood Culture - Preliminary Blood No Growth after 24 hours 04/08/18 18:15 Anaerobic Culture - Preliminary Thigh - Left 04/08/18 18:15 Anaerobic Culture - Preliminary Thigh - Left 04/08/18 18:15 Anaerobic Culture - Preliminary Thigh - Left 04/08/18 18:15 Gram Stain - Final Thigh - Left Wound Culture - Final Escherichia coli Assessment and Plan (1) Infection, vascular device Current Visit: Yes Status: Chronic Code(s): T82.7XXA - INFECT/INFLM REACT D/ T OTH CARDI/VASC DEV/IMPLNT/GRFT, INIT SNOMED Code(s): 87111161 (2) Gram-negative infection Current Visit: Yes Status: Acute Code(s): A49.9 - BACTERIAL INFECTION, UNSPECIFIED SNOMED Code(s): 671911543
[2018-04-12] MEDS: HEPARIN SODIUM,PORCINE 5,000 UNIT/ML 1 ML VIAL SQ SCH ×3 (00:54→17:04)
[2018-04-12] MEDS: oxyCODONE-APAP 5-325MG 1 EACH TAB PO PRN ×4 (03:15→21:08)
[2018-04-12] MEDS: IPRATROPIUM 0.5 MG/2.5 ML NEBU INHALATION SCH ×4 (07:27→20:14)
[2018-04-12 07:47] LABS: Basophils % (A) 0 %; Eosinophils # (A) 0.6 k/uL (0-0.7); Eosinophils % (A) 9 %; HCT 40.2 % (39.0-53.0); HGB 13.2 gm/dL (13.0-17.5); Lymphocytes # (A) 1.2 k/uL (1.0-4.8); Lymphocytes % (A) 16 %; MCH 28.6 pg (25.0-35.0); MCHC 32.7 g/dL (31.0-37.0); MCV 87.4 fL (80.0-100.0); Mean Platelet Volume 7.2; Monocytes # (A) 0.5 k/uL (0-1.0); Monocytes % (A) 7 %; Neutrophils # (A) 4.8 k/uL (1.3-7.7); Neutrophils % (A) 65 %; Platelet Count 215 k/uL (150-450); RBC 4.61 m/uL (4.30-5.90); RDW 15.4 % (11.5-15.5); WBC 7.4 k/uL (3.8-10.6)
[2018-04-12 07:55] LABS: ALT 26 U/L (21-72); AST 24 U/L (17-59); Albumin 3.2 g/dL (3.5-5.0); Alkaline Phosphatase 61 U/L (38-126); Anion Gap 8 mmol/L; Blood Urea Nitrogen 18 mg/dL (9-20); Carbon Dioxide 22 mmol/L (22-30); Chloride 108 mmol/L (98-107); Glucose 91 mg/dL (74-99); Potassium 4.4 mmol/L (3.5-5.1); Sodium 138 mmol/L (137-145); Total Bilirubin 0.5 mg/dL (0.2-1.3); Total Protein 5.7 g/dL (6.3-8.2)
[2018-04-12] MEDS: ATORVASTATIN 40 MG TAB PO SCH (08:12)
[2018-04-12] MEDS: LISINOPRIL 5 MG TAB PO SCH (08:12)
[2018-04-12] MEDS: FAMOTIDINE 20 MG TAB PO SCH (08:12)
[2018-04-12] MEDS: CILOSTAZOL 100 MG TAB PO SCH (08:13)
[2018-04-12] MEDS: ASPIRIN 81 MG PO SCH (08:13)
[2018-04-12] MEDS: CLOPIDOGREL 75 MG TAB PO SCH (08:13)
[2018-04-12] MEDS: ATENOLOL 50 MG TAB PO SCH (08:13)
[2018-04-12] MEDS: CHOLECALCIFEROL 1,000 UNIT TAB PO SCH (08:13)
[2018-04-12] MEDS: CHLORTHALIDONE 25 MG TAB PO SCH (08:13)
[2018-04-12] MEDS ORDERED: BISACODYL 10 MG SUPP RECTAL PRN (08:45)
[2018-04-12] MEDS ORDERED: MAGNESIUM HYDROXIDE 2,400 MG/10 ML CUP PO PRN (08:45)
--- NOTE | 2018-04-12 09:28 | P.PN ---
Subjective Progress Note Date: 04/12/18 Principal diagnosis: Left medial thigh abscess with infected graft remnant. Previous medical history of hypertension, hyperlipidemia, DVT, arthritis, previous tobacco dependence, left fem-pop bypass POD #4 excisional debridement of left medial thigh wound and excision of portion of previous [place] bypass. POD #2 placement of wound VAC to left thigh wound The patient is ambulating in his room in no acute distress. Does complain of some pain and his left thigh wound site, especially with manipulation. Wound VAC was placed on Friday. Just awaiting final antibiotic decision for patient to be up to go home. Objective - Vital Signs Vital signs: Vital Signs Temp 97.9 F 04/12/18 08:29 Pulse 71 04/12/18 08:29 Resp 16 04/12/18 08:29 BP 106/70 04/12/18 08:29 Pulse Ox 96 04/12/18 08:29 Intake & Output 04/11/18 04/12/18 04/12/18 18:59 06:59 18:59 Intake Total 2340 240 Output Total 50 100 0 Balance 2290 140 0 Weight 97.522 kg Intake: Intake, IV Titration 600 Amount Vancomycin 1,750 mg In 500 Sodium Chloride 0.9% 500 ml @ 167 mls/hr IVPB Q12HR [facility] Rx#:[id number] cefTAZidime 2 gm In 100 Sodium Chloride 0.9% 100 ml @ 100 mls/hr IVPB Q8HR [facility] Rx#:[id number] Oral 1740 240 Output: Drainage 50 100 0 Left Thigh 50 100 0 Other: Voiding Method Urinal # Voids 4 - Constitutional General appearance: Present: cooperative, no acute distress - Respiratory Details: Lungs sounds clear bilaterally. Respirations even, nonlabored. Currently on room air with oxygen saturation 94%. - Cardiovascular Details: S1, S2 present. Regular rate and rhythm. No edema present. - Gastrointestinal Gastrointestinal Comment(s): Abdomen soft, nontender, nondistended. Active bowel sounds 4 quadrants. Tolerating diet. - Genitourinary Genitourinary Comment(s): Continues to void clear, yellow urine. - Integumentary Integumentary Comment(s): Skin is warm and dry with evidence of good perfusion. Left medial thigh with wound VAC in place to 125 mmHg suction - Neurologic Neurologic: Present: CNII-XII intact - Musculoskeletal Musculoskeletal: Present: gait normal, strength equal bilaterally - Psychiatric Psychiatric: Present: A&O x's 3, appropriate affect, intact judgment & insight - Allied health notes Allied health notes reviewed: nursing - Labs CBC & Chem 7: 04/12/18 07:18 04/12/18 07:18 Labs: Abnormal Lab Results - Last 24 Hours (Table) 04/12/18 Range/Units 07:18 Chloride 108 H (98-107) mmol/L Total Protein 5.7 L (6.3-8.2) g/dL Albumin 3.2 L (3.5-5.0) g/dL Microbiology - Last 24 Hours (Table) 04/08/18 18:15 Gram Stain - Preliminary Thigh - Left Tissue Culture - Preliminary Escherichia coli 04/10/18 14:50 Blood Culture - Preliminary Blood No Growth after 24 hours Assessment and Plan (1) Infection, vascular device Current Visit: Yes Status: Chronic Code(s): T82.7XXA - INFECT/INFLM REACT D/ T OTH CARDI/VASC DEV/IMPLNT/GRFT, INIT SNOMED Code(s): 17166279 Plan: Left medial thigh with Wound VAC in place to 125 mmHg continuous suction. Patient may be discharged to home from our standpoint when antibiotic decision made per Dr. Jaime. Home care to change wound VAC Friday and Friday with Friday wound VAC change in the wound care center by Dr. Snyder. Patient should keep left leg elevated as much as possible. Medical management per primary care service. Time with Patient: Greater than 30
[2018-04-12] MEDS: SENNOSIDES 8.6 MG TAB PO SCH ×2 (09:46→21:08)
[2018-04-12] MEDS: VANCOMYCIN 1,750 MG in SODIUM CHLORIDE 0.9% 500 ML IVPB SCH ×2 (09:46→21:09)
--- NOTE | 2018-04-12 14:58 | P.PN ---
Subjective Progress Note Date: 04/12/18 This is a 68-year-old patient of with a history of a left fem-pop bypass secondary to popliteal artery aneurysm approximately [address] Fulton and has had a nonhealing medial thigh wound over the past month. Patient came in for an elective excisional debridement of the left medial thigh wound and excision of portion of previous [place]-Sagar bypass with Dr. Fulton yesterday. Patient has known medical history of deep vein thrombosis, GERD, hyperlipidemia, hypertension, osteoarthritis, rheumatoid arthritis, heart cath, COPD and ex-smoker. Patient has been started on his home medication per Dr. Fulton. Dr. Jaime has been consulted for infectious disease. Patient is currently on Kefzol and vancomycin. Denies chest pain or shortness of breath at this time. Patient denies nausea vomiting or diarrhea. Patient denies any urinary frequency urgency. On 04/10/2018 patient currently resting comfortably in bed. Denies any shortness of breath or chest pain at this time. Incision site dressing remains clean dry and intact. Patient denies nausea vomiting or diarrhea. On 04/11/2018 patient is alert and oriented 3 in no apparent distress he complains of pain in his lower extremity mostly when having dressing change otherwise he denies any complaints there is no fever or chills no headache or dizziness no chest pain no shortness of breath no cough no nausea or vomiting no abdominal pain no diarrhea and no urinary symptoms Objective - Vital Signs Vital signs: Vital Signs Temp 98.1 F 04/12/18 14:53 Pulse 84 04/12/18 14:53 Resp 16 04/12/18 14:53 BP 101/65 04/12/18 14:53 Pulse Ox 94 L 04/12/18 14:53 Intake & Output 04/11/18 04/12/18 04/12/18 18:59 06:59 18:59 Intake Total 2340 240 237 Output Total 50 100 0 Balance 2290 140 237 Weight 97.522 kg Intake: Intake, IV Titration 600 Amount Vancomycin 1,750 mg In 500 Sodium Chloride 0.9% 500 ml @ 167 mls/hr IVPB Q12HR [facility] Rx#:[id number] cefTAZidime 2 gm In 100 Sodium Chloride 0.9% 100 ml @ 100 mls/hr IVPB Q8HR [facility] Rx#:[id number] Oral 1740 240 237 Output: Drainage 50 100 0 Left Thigh 50 100 0 Other: Voiding Method Urinal # Voids 4 3 - Exam Head normocephalic and atraumatic Neck supple no JVD no goiter Lungs clear to auscultation bilaterally no wheezing or crackles Heart regular rate and rhythm S1-S2, no rub or gallop Abdomen is soft nontender nondistended positive bowel sounds no hepatosplenomegaly Extremities no edema. Left medial thigh dressing clean dry and intact Neuro alert and orientated to 3 - Labs CBC & Chem 7: 04/12/18 07:18 08 07:18 Labs: Abnormal Lab Results - Last 24 Hours (Table) 04/12/18 Range/Units 07:18 Chloride 108 H (98-107) mmol/L Total Protein 5.7 L (6.3-8.2) g/dL Albumin 3.2 L (3.5-5.0) g/dL Microbiology - Last 24 Hours (Table) 04/08/18 18:15 Gram Stain - Preliminary Thigh - Left Tissue Culture - Preliminary Escherichia coli 04/10/18 14:50 Blood Culture - Preliminary Blood No Growth after 24 hours Assessment and Plan Plan: 1. Status post excisional debridement and removal of previous cortex Bypass. 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 Jaime for infectious disease has been consulted and patient currently on Kefzol and vancomycin. Plan for wound VAC for tomorrow and possible discharge with wound vac. Pain medication per surgical team. Discussed case with Luba Mckeon PARTS REPRESENTATIVE with Dr. Jaime. Awaiting blood culture result the patient may require IV antibiotics upon discharge. wound vac to be applied per surgical team 2. History of deep vein thrombosis 3. History of GERD 4. History of hyperlipidemia. Continue Lipitor 5. History of hypertension. Continue home medication 6. History of osteoarthritis 7. History of rheumatoid arthritis DVT prophylaxis heparinand GI prophylaxis Pepcid Thank you for this consultation we will continue to follow patient throughout stay.
[2018-04-12] MEDS: GABAPENTIN 400 MG CAP PO SCH (21:08)
[2018-04-12] MEDS: clonazePAM 1 MG TAB PO SCH (21:09)
[2018-04-13] MEDS: HEPARIN SODIUM,PORCINE 5,000 UNIT/ML 1 ML VIAL SQ SCH ×2 (00:59→08:59)
[2018-04-13] MEDS: oxyCODONE-APAP 5-325MG 1 EACH TAB PO PRN ×4 (00:59→14:17)
[2018-04-13] MEDS: IPRATROPIUM 0.5 MG/2.5 ML NEBU INHALATION SCH ×3 (06:52→15:43)
[2018-04-13 07:57] LABS: ALT 36 U/L (21-72); AST 34 U/L (17-59); Albumin 3.3 g/dL (3.5-5.0); Alkaline Phosphatase 61 U/L (38-126); Anion Gap 8 mmol/L; Basophils % (A) 0 %; Blood Urea Nitrogen 17 mg/dL (9-20); Carbon Dioxide 25 mmol/L (22-30); Chloride 106 mmol/L (98-107); Eosinophils # (A) 0.6 k/uL (0-0.7); Eosinophils % (A) 9 %; Glucose 86 mg/dL (74-99); HCT 41.1 % (39.0-53.0); HGB 13.5 gm/dL (13.0-17.5); Lymphocytes # (A) 1.2 k/uL (1.0-4.8); Lymphocytes % (A) 17 %; MCH 28.7 pg (25.0-35.0); MCHC 32.7 g/dL (31.0-37.0); MCV 87.9 fL (80.0-100.0); Mean Platelet Volume 8.8; Monocytes # (A) 0.7 k/uL (0-1.0); Monocytes % (A) 10 %; Neutrophils # (A) 4.5 k/uL (1.3-7.7); Neutrophils % (A) 63 %; Platelet Count 219 k/uL (150-450); Potassium 4.3 mmol/L (3.5-5.1); RBC 4.68 m/uL (4.30-5.90); RDW 15.3 % (11.5-15.5); Sodium 139 mmol/L (137-145); Total Bilirubin 0.5 mg/dL (0.2-1.3); Total Protein 5.7 g/dL (6.3-8.2); WBC 7.1 k/uL (3.8-10.6)
--- NOTE | 2018-04-13 08:00 | P.PN ---
Progress Note - Text Progress Note Date: 04/12/18 Patient seen and examined. Doing well. States pain is controlled. Reviewed ID recs, awaiting final cultures for final abx coverage. Patient denies any fevers, chills, nausea, vomiting, lower extremity pain. States he has been ambulating without pain. VSS, Left medial thigh wound with wound VAC intact, no erythema, mild tenderness. Palpable pulse in bypass, and PT. Discharge home with home care for wound VAC changes and follow up in wound care clinic once final choice of abx per ID.
[2018-04-13] MEDS: CHOLECALCIFEROL 1,000 UNIT TAB PO SCH (09:00)
[2018-04-13] MEDS: FAMOTIDINE 20 MG TAB PO SCH (09:00)
[2018-04-13] MEDS: CLOPIDOGREL 75 MG TAB PO SCH (09:00)
[2018-04-13] MEDS: ATORVASTATIN 40 MG TAB PO SCH (09:00)
[2018-04-13] MEDS: LISINOPRIL 5 MG TAB PO SCH (09:00)
[2018-04-13] MEDS: SENNOSIDES 8.6 MG TAB PO SCH (09:00)
[2018-04-13] MEDS: ATENOLOL 50 MG TAB PO SCH (09:00)
[2018-04-13] MEDS: ASPIRIN 81 MG PO SCH (09:00)
[2018-04-13] MEDS: CILOSTAZOL 100 MG TAB PO SCH (09:11)
[2018-04-13] MEDS: CHLORTHALIDONE 25 MG TAB PO SCH (09:11)
[2018-04-13] MEDS: VANCOMYCIN 1,750 MG in SODIUM CHLORIDE 0.9% 500 ML IVPB SCH (10:43)
--- NOTE | 2018-04-13 11:05 | P.PN ---
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 Fulton and has had a nonhealing medial thigh wound over the past month. Patient came in for an elective excisional debridement of the left medial thigh wound and excision of portion of previous [place] bypass with Dr. Fulton yesterday. Patient has known medical history of deep vein thrombosis, GERD, hyperlipidemia, hypertension, osteoarthritis, rheumatoid arthritis, heart cath, COPD and ex-smoker. Patient has been started on his home medication per Dr. Fulton. Dr. Jaime has been consulted for infectious disease. Patient is currently on Kefzol and vancomycin. Denies chest pain or shortness of breath at this time. Patient denies nausea vomiting or diarrhea. Patient denies any urinary frequency urgency. On 04/10/2018 patient currently resting comfortably in bed. Denies any shortness of breath or chest pain at this time. Incision site dressing remains clean dry and intact. Patient denies nausea vomiting or diarrhea. On 04/11/2018 patient is alert and oriented 3 in no apparent distress he complains of pain in his lower extremity mostly when having dressing change otherwise he denies any complaints there is no fever or chills no headache or dizziness no chest pain no shortness of breath no cough no nausea or vomiting no abdominal pain no diarrhea and no urinary symptoms On 04/13/2018 patient is alert and oriented 3. Patient denies chest pain or shortness of breath at this time. Per Dr. Fulton patient is planning to be discharged home with home care for wound VAC changes and follow-up in wound care clinic once final choice of antibiotics and made per Dr. Jaime with infectious disease. Patient currently has PICC line. Objective - Vital Signs Vital signs: Vital Signs Temp 98.5 F 04/13/18 08:59 Pulse 81 04/13/18 08:59 Resp 18 04/13/18 08:59 BP 115/62 04/13/18 08:59 Pulse Ox 93 L 04/13/18 08:59 Intake & Output 04/12/18 04/13/18 04/13/18 18:59 06:59 18:59 Intake Total 474 760 240 Output Total 0 0 Balance 474 760 240 Intake: IV 160 .9 160 Intake, IV Titration 600 Amount Vancomycin 1,750 mg In 500 Sodium Chloride 0.9% 500 ml @ 167 mls/hr IVPB Q12HR [facility] Rx#:[id number] cefTAZidime 2 gm In 100 Sodium Chloride 0.9% 100 ml @ 100 mls/hr IVPB Q8HR [facility] Rx#:[id number] Oral 474 240 Output: Drainage 0 0 Left Thigh 0 0 Other: # Voids 3 2 - Exam Head normocephalic Neck supple Lungs clear to auscultation bilaterally no wheezing or crackles Heart regular rate and rhythm S1-S2, no rub or gallop Abdomen is soft nontender nondistended positive bowel sounds no hepatosplenomegaly Extremities no edema. Left medial thigh dressing clean dry and intact Neuro alert and orientated to 3 - Labs CBC & Chem 7: 04/13/18 06:17 04/13/18 06:17 Labs: Abnormal Lab Results - Last 24 Hours (Table) 04/13/18 Range/Units 06:17 Total Protein 5.7 L (6.3-8.2) g/dL Albumin 3.3 L (3.5-5.0) g/dL Microbiology - Last 24 Hours (Table) 04/08/18 18:15 Anaerobic Culture - Final Thigh - Left 04/08/18 18:15 Anaerobic Culture - Final Thigh - Left 04/08/18 18:15 Anaerobic Culture - Final Thigh - Left 04/08/18 18:15 Gram Stain - Preliminary Thigh - Left Tissue Culture - Preliminary Escherichia coli Coagulase Negative Staph 04/10/18 14:50 Blood Culture - Preliminary Blood No Growth after 48 hours Assessment and Plan Assessment: 1. Status post excisional debridement and removal of previous cortex Bypass. 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 Jaime for infectious disease has been consulted and patient currently on Kefzol and vancomycin. Plan for wound VAC for tomorrow and possible discharge with wound vac. Pain medication per surgical team. Discussed case with Luba Mckeon POLISHING MACHINE TENDER with Dr. Jaime. Awaiting blood culture result the patient may require IV antibiotics upon discharge. wound vac to be applied per surgical team. Wound VAC in place. Patient will be discharged home per Dr. Fulton. Patient will be discharged home with wound VAC changes per home care and follow-up in wound care clinic once final choice of antibiotics per infectious disease are made. 2. History of deep vein thrombosis 3. History of GERD 4. History of hyperlipidemia. Continue Lipitor 5. History of hypertension. Continue home medication 6. History of osteoarthritis 7. History of rheumatoid arthritis DVT prophylaxis heparinand GI prophylaxis Pepcid Thank you for this consultation we will continue to follow patient throughout stay. I performed an examination of the patient and discussed their management with the Nurse Practitioner. I have reviewed the Nurse Practitioner's notes and agree with the documented findings and plan of care
[2018-04-13 14:49] VITALS: BP 91/59; PULSE 79; RESP 16; TEMP 98.6
[2018-04-13] MEDS ORDERED: cefTRIAXone IN SWFI 2,000 MG/20 ML SYRINGE IVP STA (15:55)
--- NOTE | 2018-04-13 21:51 | P.PN ---
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 Patient presented to vascular surgery with a medial 5 wound which has not healed over the past month. He was brought in by vascular surgery and underwent an excisional debridement of the left wound with a portion of the [place] bypass removed. Patient is scheduled for wound VAC placement today. He has been on. Surgical. Patient has been afebrile. White count is 18.7, BUN 14 crit is 0.75. Patient denies having any lightheadedness, dizziness, nausea, vomiting or diarrhea. Patient recently quit smoking about 1 month ago. Patient has history of rheumatoid arthritis but not currently on any medication. This pleasant elderly gentleman relates it is feeling better today. However he states the surgical site with debridement occurred the wound VAC has been applied is been somewhat painful. He is given Percocet and does not believe it' s helping his pain. We'll need to work with the surgical team has to some further options as he gets closer to his discharge to home. Some preliminary data became available yesterday and gram-negative bacilli was found and ceftazidime was added to the vancomycin. 04/11/2018 patient has had little improvement of the status. As noted there is a gram-negative infection it's been found. At this time it appears to be E. coli and the final results are pending. Likely be transitioned to ceftriaxone for treatment of this deep-seated infection related to the graft material in the groin. He may not require vancomycin therapy as an outpatient if no resistant gram-positive organisms are found. Patient understands be working for discharge, Friday. We'll utilize a wound VAC. 04/13/2018 findings the patient to be comfortable looking forward was discharged home. Cultures been finalized and his first dose of Rocephin is given in hospital and will continue to receive this as an outpatient after his discharge for the complex infection of the vascular bypass graft infection. Negative pressure therapy system will be utilized for home the dressing is changed in the home pump is secured before his discharge. He'll follow up in the wound center Objective - Vital Signs Vital signs: Vital Signs Temp 98.6 F 04/13/18 14:25 Pulse 79 04/13/18 14:25 Resp 16 04/13/18 14:25 BP 91/59 04/13/18 14:25 Pulse Ox 94 L 04/13/18 14:25 Intake & Output 04/13/18 04/13/18 04/14/18 06:59 18:59 06:59 Intake Total 760 720 Output Total 0 Balance 760 720 Intake: IV 160 .9 160 Intake, IV Titration 600 Amount Vancomycin 1,750 mg In 500 Sodium Chloride 0.9% 500 ml @ 167 mls/hr IVPB Q12HR [facility] Rx#:[id number] cefTAZidime 2 gm In 100 Sodium Chloride 0.9% 100 ml @ 100 mls/hr IVPB Q8HR [facility] Rx#:[id number] Oral 720 Output: Drainage 0 Left Thigh 0 Other: # Voids 2 1 - Labs CBC & Chem 7: 04/13/18 06:17 04/13/18 06:17 Labs: Abnormal Lab Results - Last 24 Hours (Table) 04/13/18 Range/Units 06:17 Total Protein 5.7 L (6.3-8.2) g/dL Albumin 3.3 L (3.5-5.0) g/dL Microbiology - Last 24 Hours (Table) 04/10/18 14:50 Blood Culture - Preliminary Blood No Growth after 72 hours 04/08/18 18:15 Anaerobic Culture - Final Thigh - Left 04/08/18 18:15 Anaerobic Culture - Final Thigh - Left 04/08/18 18:15 Anaerobic Culture - Final Thigh - Left 04/08/18 18:15 Gram Stain - Preliminary Thigh - Left Tissue Culture - Preliminary Escherichia coli Coagulase Negative Staph Assessment and Plan (1) Infection, vascular device Status: Chronic Code(s): T82.7XXA - INFECT/INFLM REACT D/T OTH CARDI/VASC DEV/ IMPLNT/GRFT, INIT SNOMED Code(s): 36463288 (2) Gram-negative infection Status: Acute Code(s): A49.9 - BACTERIAL INFECTION, UNSPECIFIED SNOMED Code( s): 719177495
--- NOTE | 2018-04-14 07:23 | P.DS ---
Providers Date of admission: 04/09/18 15:11 Expected date of discharge: 04/13/18 Attending physician: Fish Fulton DO Consults: 04/08/18 18:53 Consult Physician Routine Consulting Provider: Vilma Gallo Consult Reason/Comments: medical management Do you want consulting provider notified?: Yes 04/08/18 18:57 Consult Physician Routine Consulting Provider: Conrado Jaime Consult Reason/Comments: left medial thigh wound, infection Do you want consulting provider notified?: Yes 04/08/18 19:33 Consult Physician Routine Consulting Provider: Jose Snyder Consult Reason/Comments: wound care Do you want consulting provider notified?: Yes Primary care physician: Jose Snyder - Discharge Diagnosis(es) (1) Infection, vascular device Status: Chronic Priority: High (2) Gram-negative infection Status: Acute Priority: High Hospital Course: 68-year-old gentleman who presented to the hospital secondary to an abscess/ infection of his left medial thigh which was excised in the operating room. Upon operation and excision it was noted to have an existing old bypass graft which was floating in an abscess and therefore this was removed along with the capsule in the left medial thigh. Cultures were obtained at this time which took several days to be finalized. He was admitted to the hospital with IV antibiotics and pain control. Infectious disease was consult due to his infection would need IV antibiotics and a continuous basis and therefore PICC line was placed. Once cultures were finalized patient was discharged home with home care for continued IV antibiotics. He also had a wound VAC placed which will need to be changed every 2 days per his home care as well as wound care clinic. He was tolerating a diet, pain was well-controlled and he was stable for discharge on 04/13/2018. Procedures: Left medial thigh excisional debridement Patient Condition at Discharge: Good Plan - Discharge Summary Discharge Rx Participant: No New Discharge Prescriptions: New oxyCODONE-APAP 5-325MG [Percocet 5-325 mg] 1 each PO Q6HR PRN #30 tab PRN Reason: Pain Sennosides [Senokot] 8.6 mg PO BID tab cefTRIAXone [Rocephin] 2,000 mg IVPB Q24HR #30 vial Continue Cilostazol [Pletal] 100 mg PO DAILY Atenolol/Chlorthalidone [Atenolol-Chlorthalidone 50-25] 1 tab PO DAILY Aspirin 81 mg PO DAILY Gabapentin [Neurontin] 1 cap PO HS Clopidogrel [Plavix] 75 mg PO DAILY clonazePAM [Clonazepam] 1 mg PO HS Tiotropium 18 Mcg/Puff [Spiriva] 18 mcg INHALATION DAILY Cholecalciferol [Vitamin D3] 1,000 unit PO DAILY Atorvastatin [Lipitor] 40 mg PO DAILY Lisinopril [Zestril] 5 mg PO DAILY Discharge Medication List Aspirin 81 mg PO DAILY 04/08/18 [History] Atenolol/Chlorthalidone [Atenolol-Chlorthalidone 50-25] 1 tab PO DAILY 04/08/18 [History] Atorvastatin [Lipitor] 40 mg PO DAILY 04/08/18 [History] Cholecalciferol [Vitamin D3] 1,000 unit PO DAILY 04/08/18 [History] Cilostazol [Pletal] 100 mg PO DAILY 04/08/18 [History] Clopidogrel [Plavix] 75 mg PO DAILY 04/08/18 [History] Gabapentin [Neurontin] 1 cap PO HS 04/08/18 [History] Lisinopril [Zestril] 5 mg PO DAILY 04/08/18 [History] Tiotropium 18 Mcg/Puff [Spiriva] 18 mcg INHALATION DAILY 04/08/18 [History] clonazePAM [Clonazepam] 1 mg PO HS 04/08/18 [History] Sennosides [Senokot] 8.6 mg PO BID tab 04/13/18 [Rx] cefTRIAXone [Rocephin] 2,000 mg IVPB Q24HR #30 vial 04/13/18 [Rx] oxyCODONE-APAP 5-325MG [Percocet 5-325 mg] 1 each PO Q6HR PRN #30 tab 04/13/18 [ Rx] Follow up Appointment(s)/Referral(s): Fish Fulton DO [STAFF PHYSICIAN] - As Needed [facility], [NON-STAFF] - [facility], [REFERRING] - [facility] [NON-STAFF] - 04/15/18 8:00 am (Please see Dr. Snyder in the wound care center) Ambulatory/Diagnostic Orders: Basic Metabolic Panel [LAB.AMB] Location: None Selected Complete Blood Count w/diff [LAB.AMB] Location: None Selected Patient Instructions/Handouts: Wound Infection (DC) Activity/Diet/Wound Care/Special Instructions: If approved for in office IV antibiotics, office contact #[phone] Wound vac - delivered to house on 04/10/18 by [facility] - [phone] Wound vac to be changed on Friday and Friday by home care, Friday in the wound care clinic with Dr. Snyder. No heavy lifting for 2 weeks. Discharge Disposition: HOME WITH HOME HEALTH SERVICES
== END 2018-04-13 19:35 | disposition home health service (06) | DRG 264 ==
LOC: OR 14:35 → 3SUR 18:49 → OR 04-09 15:10 → 3SUR 04-09 15:11
PROVIDERS: ADMIT Surgery; ATTEND Surgery
PROC: 0JBM0ZZ Excision of Left Upper Leg Subcutaneous Tissue and Fascia, Open Approach (ICD-10-PCS; 2018-04-08)
PROC: 0JPW0JZ Removal of Synthetic Substitute from Lower Extremity Subcutaneous Tissue and Fascia, Open Approach (ICD-10-PCS; 2018-04-08)
PROC: 02HV33Z Insertion of Infusion Device into Superior Vena Cava, Percutaneous Approach (ICD-10-PCS; principal; 2018-04-10 15:08)
DX: T82.7XXA Infection and inflammatory reaction due to other cardiac and vascular devices, implants and grafts, initial encounter (principal); L03.116 Cellulitis of left lower limb; L02.416 Cutaneous abscess of left lower limb; Y83.2 Surgical operation with anastomosis, bypass or graft as the cause of abnormal reaction of the patient, or of later complication, without mention of misadventure at the time of the procedure; E78.5 Hyperlipidemia, unspecified; I10 Essential (primary) hypertension; J44.9 Chronic obstructive pulmonary disease, unspecified; K21.9 Gastro-esophageal reflux disease without esophagitis; M06.9 Rheumatoid arthritis, unspecified; Z79.02 Long term (current) use of antithrombotics/antiplatelets; Z79.82 Long term (current) use of aspirin; Z79.899 Other long term (current) drug therapy; Z83.3 Family history of diabetes mellitus; Z86.718 Personal history of other venous thrombosis and embolism; Z87.891 Personal history of nicotine dependence; Z88.2 Allergy status to sulfonamides; B96.20 Unspecified Escherichia coli [E. coli] as the cause of diseases classified elsewhere
CPT/HCPCS: 36569; 71045; 71046; 76937; 77001; 80048; 80053; 80202; 85025; 87040; 87070; 87075; 87077; 87102; 87116; 87186; 87205; 87206; 94640

== ENCOUNTER 2018-08-04 06:03 | Day surgery (SDC) | payer MEDICARE ==
[2018-07-30 11:16] VITALS: BMI 32.3
[~2018-08-04 06:03] MED LIST: DEXAMETHASONE SOD PHOSPHATE 10 MG/ML 1 ML VIAL IV ONE; LIDOCAINE 1% 20 ML VIAL (10MG/ML) FOR IV START INTRADERMA PRN; ONDANSETRON 4 MG/2 ML VIAL IVP ONE; SCOPOLAMINE 1.5MG/72HR PATCH TRANSDERM ONE; ceFAZolin IN SWFI 2 GM/20 ML SYRINGE IVP ONE
[2018-08-04] MEDS: LACTATED RINGERS 1,000 ML IV SCH (06:43)
[2018-08-04] MEDS ORDERED: NEOSTIGMINE 1 MG/ML 10 ML VIAL ONE (07:30)
[2018-08-04] MEDS ORDERED: PHENYLEPHRINE-0.9% NACL SYG 1 MG/10 ML SYRINGE ONE (07:30)
[2018-08-04] MEDS ORDERED: HYDROmorphone (PF) 1 MG/ML ONE (07:30)
[2018-08-04] MEDS ORDERED: VECURONIUM 10 MG VIAL IV ONE (07:30)
[2018-08-04] MEDS ORDERED: ePHEDrine SULFATE/0.9% NACL/PF 50 MG/5 ML SYRINGE IV ONE (07:30)
[2018-08-04] MEDS ORDERED: GLYCOPYRROLATE 0.2 MG/ML 2 ML VIAL ONE (07:30)
[2018-08-04] MEDS ORDERED: KETAMINE 10 MG/ML 20 ML VIAL ONE (07:30)
[2018-08-04] MEDS ORDERED: LIDOCAINE 1% INJ 10MG/ML (20 ML MDV) ONE (07:30)
[2018-08-04] MEDS ORDERED: SUCCINYLCHOLINE CHLORIDE VIAL 200 MG/10 ML VIAL IV ONE (07:30)
[2018-08-04] MEDS ORDERED: fentaNYL (PF) 50 MCG/ML 2 ML AMP ONE (07:30)
[2018-08-04] MEDS ORDERED: PROPOFOL 10 MG/ML 20 ML VIAL IV ONE (07:30)
[2018-08-04] MEDS ORDERED: MIDAZOLAM 2 MG/2 ML VIAL ONE (07:30)
[2018-08-04] MEDS ORDERED: LACTATED RINGERS 1,000 ML IV ONE ×2 (08:10)
--- NOTE | 2018-08-04 09:59 | P.OP ---
Date of Procedure: 08/04/18 Preoperative Diagnosis: Infected left femoral-popliteal PTFE graft Postoperative Diagnosis: Same Procedure(s) Performed: Left femoropopliteal PTFE graft excision and closure of previous left medial thigh wound Anesthesia: WESLY Surgeon: Fish Fulton Windows Vmware Administrator #1: Jose Snyder Estimated Blood Loss (ml): 50 Pathology: other (old PTFE graft) Condition: stable Disposition: PACU Indications for Procedure: 68-year-old male with history of left lower extremity popliteal artery aneurysm status post left femoral-popliteal bypass with PTFE graft years ago with need for revision and femoral to below-knee tibial artery bypass earlier last year 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 He presents for excision of the old graft. Description of Procedure: After written informed consent was obtained the patient all risks benefits and complications were described, the patient was brought to the operative suite and laid in a supine position. The area of the left groin and lower extremity was prepped and draped in the usual sterile fashion after appropriate anesthetic was performed per the anesthesiologist. A timeout was performed in normal fashion antibiotics were administered prior to incision. A vertical incision was then created just distal to the existing scar in his left groin and dissection was carried down with electrocautery to the existing old PTFE graft. Once the graft was located it was then pulled from the distal aspect. Was then followed proximally to the anastomotic line with meticulous dissection with Metzenbaum scissors. Once the anastomotic line was located it was then cut with an 11 blade scalpel and the PTFE graft was removed. The existing artery was then oversewn with 5-0 Prolene suture. Hemostasis was assured. The area was then copiously irrigated with antibiotic solution. The track was also irrigated with antibiotic solution and suctioned dry. This was packed for hemostatic control. Once hemostasis was achieved the incision was then closed in a multilayer fashion. Attention was then placed to the medial wounds which was extremely friable and during prepping had some areas of bleeding. This was then excised in elliptical fashion and dissection was carried down to the pocket which no purulent drainage was expressed. Utilizing ultrasound the track was visualized and demonstrated no connection between the distal incision and the proximal incision. Cautery was utilized to secure hemostasis within the medial thigh wound and the area was irrigated with antibiotic solution and then closed with nylon suture in an interrupted fashion. The area was then cleansed and dressings were placed. Patient had a palpable pulse within his femoral to tibial artery bypass with good pulses in the PT. Patient was then sent to PACU for recovery.
[2018-08-04] MEDS ORDERED: ACETAMINOPHEN TAB 325 MG TAB PO PRN (10:00)
[2018-08-04] MEDS ORDERED: HYDROmorphone 1 MG/ML 1 ML SYRINGE IVP PRN (10:00)
[2018-08-04] MEDS ORDERED: NALOXONE 0.4 MG/ML 1 ML VIAL IV PRN (10:00)
[2018-08-04] MEDS: HYDROmorphone 0.5 MG/0.5 ML SYRINGE IVP PRN ×2 (10:03→10:21)
[2018-08-04 10:13] VITALS: RESP 16
[2018-08-04] MEDS ORDERED: ARTIFICIAL TEARS-HYPROMELLOSE DROPS 15 ML BTL RIGHT EYE PRN (10:36)
[2018-08-04] MEDS: HYDROcodone/APAP 5-325MG 1 EACH TAB PO PRN ×2 (13:13→18:45)
[2018-08-04] MEDS ORDERED: clonazePAM 1 MG TAB PO SCH (21:00)
[2018-08-04] MEDS ORDERED: GABAPENTIN 400 MG CAP PO SCH (21:00)
[2018-08-05] MEDS: HYDROcodone/APAP 5-325MG 1 EACH TAB PO PRN ×2 (01:44→08:13)
[2018-08-05] MEDS: LACTATED RINGERS 1,000 ML IV SCH (05:34)
[2018-08-05] MEDS: IPRATROPIUM 0.5 MG/2.5 ML NEBU INHALATION SCH ×2 (07:10→10:58)
[2018-08-05] MEDS ORDERED: ATENOLOL 50 MG TAB PO SCH (09:00)
[2018-08-05] MEDS ORDERED: CLOPIDOGREL 75 MG TAB PO SCH (09:00)
[2018-08-05] MEDS ORDERED: LISINOPRIL 5 MG TAB PO SCH (09:00)
[2018-08-05] MEDS ORDERED: ASPIRIN 81 MG PO SCH (09:00)
[2018-08-05] MEDS ORDERED: CHLORTHALIDONE 25 MG TAB PO SCH (09:00)
[2018-08-05] MEDS ORDERED: ATORVASTATIN 40 MG TAB PO SCH (09:00)
[2018-08-05 15:37] VITALS: BP 130/80; PULSE 69; TEMP 98
--- NOTE | 2018-08-05 17:35 | P.PN ---
Subjective Progress Note Date: 08/05/18 Principal diagnosis: infected left femoral-popliteal PTFE graft POD #1 left femoral-popliteal PTFE graft excision and closure of previous left medial thigh wound The patient's currently sitting up in bed in no acute distress. Denies pain or shortness of breath. Anxiously awaiting discharge. Left leg incisions well approximated without any drainage. Objective - Vital Signs Vital signs: Vital Signs Temp 98.0 F 08/05/18 15:00 Pulse 69 08/05/18 15:00 Resp 16 08/05/18 00:30 BP 130/80 08/05/18 15:00 Pulse Ox 95 08/05/18 15:00 Intake & Output 08/04/18 08/05/18 08/05/18 18:59 06:59 18:59 Intake Total 1400 Output Total 1205 Balance 195 Weight 102.058 kg Intake: IV 1300 Intake, IV Titration 100 Amount Lactated Ringers 1,000 ml 100 @ 20 mls/hr IV .Q24H [facility] Rx#:[id number] Output: Urine 830 Post Void Residual 325 Estimated Blood Loss 50 Other: Voiding Method Toilet # Voids 1 3 - Constitutional General appearance: Present: cooperative, no acute distress - Respiratory Details: Lungs sounds clear to auscultation bilaterally. Respirations even, nonlabored. Patient remained on room air with oxygen saturation in the mid to high 90s. - Cardiovascular Details: S1, S2 present. Regular rate and rhythm. Palpable peripheral pulses bilaterally. No edema present. No calf pain or tenderness noted. - Gastrointestinal Gastrointestinal Comment(s): abdomen soft, nontender, nondistended. Active bowel sounds 4 quadrants. Tolerating diet. - Genitourinary Genitourinary Comment(s): continues to void clear, yellow urine. - Integumentary Integumentary Comment(s): skin is warm and dry with evidence of good perfusion. Again both the groin and thigh site incisions well approximated without redness or drainage. 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 Wound cultures still pending but preliminary results demonstrate no growth at 24 hours. The patient has been ambulatory. He has no pain. He was stable for discharge. He is to follow-up with Dr. Fulton in 2 weeks. He may call the office if he has any increased pain, swelling or drainage from his incisionsor fever. He was discharged home on his home medications with Tylenol alternating with Motrin if necessary for pain. Time with Patient: Greater than 30
== END 2018-08-05 15:44 | disposition home or self-care (01) ==
LOC: OR 06:03 → 4SSUR 09:35 → OR 08-05 15:44
PROVIDERS: ATTEND Surgery
DX: T82.7XXA Infection and inflammatory reaction due to other cardiac and vascular devices, implants and grafts, initial encounter (principal); E78.00 Pure hypercholesterolemia, unspecified; I10 Essential (primary) hypertension; Z87.891 Personal history of nicotine dependence; M19.90 Unspecified osteoarthritis, unspecified site; Z79.02 Long term (current) use of antithrombotics/antiplatelets; Z79.82 Long term (current) use of aspirin; Z79.899 Other long term (current) drug therapy; Z88.2 Allergy status to sulfonamides
CPT/HCPCS: 87070; 87205; 87075; 35903; J2250; J0330; J1100; J2710; J2405; J2001; J3010; J1170 ×2; J2370; J2704; J0690

== ENCOUNTER → 2019-01-07 | Outpatient (CLI) | payer MEDICARE ==
[2019-01-07 10:12] LABS: Blood Urea Nitrogen 18 mg/dL (9-20)
--- NOTE | 2019-01-07 15:59 | CT ---
EXAMINATION TYPE: CT angio abd aorta w/Runoff DATE OF EXAM: 01/07/2019 COMPARISON: Correlation chest and abdomen 08/01/2016 HISTORY: 68-year-old male with bilateral leg claudication TECHNIQUE: Contiguous axial scanning of the abdomen and pelvis with bilateral lower extremity runoff performed with IV Contrast, patient injected with 100 mL of Isovue 370. Coronal/sagittal MIP reconstr uctions performed. 3-D reconstructions generated on a dedicated independent workstation. CT DLP: 1728 mGycm Automated exposure control for dose reduction was used. FINDINGS: Heart normal size without pericardial effusion. Coronary vessel calcifications are present. Unchanged precarinal lymph node measuring 9 mm. Visualized mid to lower lungs are clear without pleur al effusion. Wedge-shaped area of hypervascularity along the anterior left hepatic dome suggesting vascular shunti ng. Gallbladder, adrenal glands, spleen, and pancreas show no gross abnormality. Small diverticulum of th e second portion of the duodenum projecting into the pancreatic head region. 2.7 cm benign cyst anterior left kidney and a tiny subcentimeter cortical cyst lower pole right kidne y. Small fatty umbilical hernia. No dilated small bowel, free fluid, or free air. No mesenteric or retroperitoneal lymphadenopathy. Diffuse colonic diverticulosis, greatest along the left side of the colon. No pericolonic inflammator y change. Bladder partially distended. Central prostatic calcifications. No abnormal fluid collection the pelvi s or pelvic lymphadenopathy. Vasculature: Ectatic lower descending thoracic aorta 2.6 cm. Borderline ectatic upper abdominal aorta at 2.5 cm. Both celiac axis and SMA origins are patent. Duplex left renal arteries. At least mild atheroscleroti c calcifications at the origin of the right renal artery. Fusiform aneurysm of the infrarenal abdominal aorta measuring 3.5 x 3.2 cm, not significantly changed from 2016. Right: Moderate segmental narrowing within the right common iliac artery. Focal severe atherosclerotic narrowing at the origin of the profunda femoral artery. Multiple focal mild to moderate segmental areas of narrowing of the superficial femoral artery. However, there is occlusion at the level of the adductor hiatus.. Underlying occluded popliteal artery aneurysm measuring 1.5 cm in caliber and a second aneurysm more inferiorly measuring 1.9 cm in caliber. There is faint reconstitution of the trifurcation vessels which appear diminutive. Posterior tibial artery is seen to the distal leg level. The peroneal artery is seen to the distal third leg level. There is faint runoff via the anterior tibial artery. Left: Mild to moderate segmental atherosclerotic narrowing of the common and external iliac arteries. Scar tissue in the left inguinal region with a SFA bypass graft coursing medially. The graft remains patent and anastomosis just below the knee joint line. The trifurcation vessels are patent though they become very diminutive at the mid leg level. Both peroneal artery and posterior tibial artery are seen to the level of the ankle. There is faint runoff very a diminutive anterior tibial artery. Bones: Advanced degenerative disc disease mid to lower lumbar spine. L3-L4 posterior facet fusion hardware i s present on the right. IMPRESSION: 1. DIFFUSE COLONIC DIVERTICULOSIS GREATEST ALONG THE LEFT SIDE OF THE COLON. 2. FUSIFORM ANEURYSM INFRARENAL ABDOMINAL AORTA AT 3.5 CM, STABLE FROM 2016. RIGHT: 3. MODERATE SCATTERED ATHEROSCLEROTIC CALCIFICATIONS THROUGHOUT. 4. FOCAL SEVERE ATHEROSCLEROTIC NARROWING AT THE ORIGIN OF THE PROFUNDA FEMORAL ARTERY. 5. SFA OCCLUSION AT THE LEVEL OF THE ADDUCTOR HIATUS. A COUPLE OF OCCLUDED POPLITEAL ARTERY ANEURYSMS MEASURING 1.9 AND 1.5 CM. 6. RECONSTITUTION OF DIMINUTIVE TRIFURCATION VESSELS. THERE IS FAINT RUNOFF VIA THE ANTERIOR TIBIAL A RTERY. 7. POSTERIOR TIBIAL ARTERY IS SEEN TO THE DISTAL LEG LEVEL AND THE PERONEAL ARTERY SEEN TO THE LOWER THIRD LEG LEVEL. LEFT: 8. SCAR TISSUE IN THE LEFT INGUINAL REGION WITH AN SFA BYPASS GRAFT COURSING MEDIALLY WITH THE ANASTO MOSIS DISTALLY JUST BELOW THE KNEE JOINT LINE. 9. TRIFURCATION VESSELS ARE PATENT THOUGH THEY BECOME VERY DIMINUTIVE AT THE MID LEG. 10. BOTH POSTERIOR TIBIAL AND PERONEAL ARTERIES ARE SEEN TO THE LEVEL OF THE ANKLE. THERE IS RUNOFF I NTO THE FOOT VIA A DIMINUTIVE ANTERIOR TIBIAL ARTERY.
== END | disposition home or self-care (01) ==
LOC: RADCTMAIN 09:18
PROVIDERS: ATTEND Surgery
DX: I71.4 Abdominal aortic aneurysm, without rupture (principal); K57.30 Diverticulosis of large intestine without perforation or abscess without bleeding; I74.3 Embolism and thrombosis of arteries of the lower extremities
CPT/HCPCS: 82565; 84520; 75635; 36415; Q9967

== ENCOUNTER 2019-10-12 05:05 | Inpatient (IN) | payer MEDICARE ==
[2019-10-12] MEDS ORDERED: NITROGLYCERIN-D5W PMX 250 ML IV ONE (05:09)
[2019-10-12] MEDS ORDERED: NITROGLYCERIN-D5W PMX 50 MG in DEXTROSE/WATER 1 250ML.BAG IV ONE (05:16)
[2019-10-12] MEDS ORDERED: WATER IV ONE (05:17)
[2019-10-12] MEDS ORDERED: DEXTROSE IV ONE (05:17)
[2019-10-12] MEDS ORDERED: NITROGLYCERIN IV ONE (05:17)
[2019-10-12 05:18] LABS: Glucose,Whole Blood 133 mg/dL (75-99)
--- NOTE | 2019-10-12 05:24 | ED ---
SOB HPI - General Chief Complaint: Shortness of Breath Stated Complaint: DESMOND Time Seen by Provider: 10/12/19 05:10 Source: patient, EMS Mode of arrival: EMS Limitations: physical limitation (Dyspnea) - History of Present Illness Initial Comments: Patient is 69-year-old man brought by ambulance to be evaluated for severe dyspnea. History initially limited as she is quite dyspneic and only able to speak in 1-2 words. The patient had been trying to sleep and then became more more short of breath. Denies fever or chills. Was not having prominent cough prior to onset. Denied chest pain. MD Complaint: shortness of breath Onset/Timin -: hour(s) Severity scale (1-10): 0 Consistency: constant Improves With: oxygen, upright position Worsens With: lying flat Treatments Prior to Arrival: oxygen, bronchodilator, NIPPV - Related Data Home Oxygen Therapy: No Home Medications Medication Instructions Recorded Confirmed Aspirin 81 mg PO DAILY 04/08/18 08/04/18 Atenolol/Chlorthalidone 1 tab PO DAILY 04/08/18 08/04/18 [Atenolol-Chlorthalidone 50-25] Atorvastatin [Lipitor] 40 mg PO DAILY 04/08/18 08/04/18 Cholecalciferol [Vitamin D3 (25 1,000 unit PO DAILY 04/08/18 08/04/18 Mcg = 1000 Iu)] Clopidogrel [Plavix] 75 mg PO DAILY 04/08/18 08/04/18 Gabapentin [Neurontin] 400 - 800 mg PO HS 04/08/18 08/04/18 Lisinopril [Zestril] 5 mg PO DAILY 04/08/18 08/04/18 Tiotropium 18 Mcg/Puff [Spiriva] 18 mcg INHALATION DAILY 04/08/18 08/04/18 clonazePAM 1 mg PO HS 04/08/18 08/04/18 Allergies Allergy/AdvReac Type Severity Reaction Status Date / Time Sulfa (Sulfonamide Allergy Unknown Verified 08/04/18 06:24 Antibiotics) Review of Systems ROS Statement: Those systems with pertinent positive or pertinent negative responses have been documented in the HPI. ROS Other: All systems not noted in ROS Statement are negative. Limitations: ROS unobtainable due to patients medical condition (Dyspnea) Constitutional: Denies: fever, chills Respiratory: Reports: as per HPI, dyspnea. Denies: cough, hemoptysis Cardiovascular: Reports: palpitations, orthopnea. Denies: chest pain, edema, syncope Gastrointestinal: Denies: abdominal pain, vomiting, diarrhea Genitourinary: Denies: dysuria, hematuria Musculoskeletal: Denies: back pain Skin: Denies: rash Neurological: Denies: headache Past Medical History Past Medical History: COPD, Deep Vein Thrombosis (DVT), GERD/Reflux, Hyperlipidemia, Hypertension, Osteoarthritis (OA), Rheumatoid Arthritis (RA), Skin Disorder, Vascular Disorder Additional Past Medical History / Comment(s): Popliteal artery aneurysm, wound left thigh area History of Any Multi-Drug Resistant Organisms: None Reported Past Surgical History: Adenoidectomy, Appendectomy, Back Surgery, Heart Catheterization, Tonsillectomy Additional Past Surgical History / Comment(s): Fem Pop Bypass secondary to popliteal artery aneurysm. Cataract surgery, pilonadal cyst, left medial thigh excision debridement Past Anesthesia/Blood Transfusion Reactions: Previous Problems w/ Anesthesia Additional Past Anesthesia/Blood Transfusion Reaction / Comment(s): SOB after last procedure related to COPD per pt. Past Psychological History: No Psychological Hx Reported Smoking Status: Former smoker Past Alcohol Use History: Rare Past Drug Use History: None Reported - Past Family History Brother(s) Family Medical History: Diabetes Mellitus Father Family Medical History: Cancer General Exam General appearance: alert, in distress Head exam: Present: atraumatic, normocephalic Eye exam: Present: normal appearance. Absent: scleral icterus, conjunctival injection ENT exam: Present: normal oropharynx Neck exam: Present: normal inspection Respiratory exam: Present: respiratory distress, wheezes, rales, accessory muscle use. Absent: rhonchi, stridor, decreased breath sounds, prolonged expiratory Cardiovascular Exam: Present: normal rhythm, tachycardia, normal heart sounds. Absent: systolic murmur, diastolic murmur, rubs, gallop GI/Abdominal exam: Present: soft. Absent: distended, tenderness, guarding, rebound, rigid, mass Extremities exam: Present: normal inspection, normal capillary refill. Absent: pedal edema, calf tenderness Back exam: Present: normal inspection. Absent: CVA tenderness (R), CVA tenderness (L) Neurological exam: Present: alert Skin exam: Present: warm, dry, intact, normal color. Absent: rash Course Vital Signs 10/12/19 10/12/19 10/12/19 05:05 05:06 05:13 Temperature 100.1 F H Pulse Rate 147 H 145 H Respiratory 26 H 26 H 26 H Rate Blood Pressure 90/50 178/69 O2 Sat by Pulse 98 100 Oximetry 10/12/19 05:30 Temperature Pulse Rate 149 H Respiratory 24 Rate Blood Pressure 105/65 O2 Sat by Pulse 98 Oximetry Medical Decision Making - Lab Data Lab Results 10/12/19 Range/Units 05:14 POC Glucose (mg/dL) 133 H (75-99) mg/dL POC Glu Human Resources Intern ID Madisyn Freyfany Disposition Referrals: Alona Navarrete DO [Primary Care Provider] - 1-2 days
[2019-10-12] MEDS ORDERED: MORPHINE SULFATE 4 MG/ML SYRINGE IV STA (05:30)
--- NOTE | 2019-10-12 05:41 | XR ---
EXAMINATION TYPE: XR chest 1V portable DATE OF EXAM: 10/12/2019 COMPARISON: 04/09/2018 HISTORY: Short of breath TECHNIQUE: Single view. There is bilateral interstitial edema and subsegmental atelectasis in the mid and lower lung disla. Heart size is normal. No heart failure. IMPRESSION: Interstitial pulmonary edema is new compared to old exam. This could relate to acute hear t failure.
[2019-10-12 05:42] LABS: Basophils # (A) 0.1 k/uL (0-0.2); Basophils % (A) 0 %; Eosinophils # (A) 0.2 k/uL (0-0.7); Eosinophils % (A) 2 %; HCT 48.1 % (39.0-53.0); HGB 15.1 gm/dL (13.0-17.5); Lymphocytes # (A) 0.7 k/uL (1.0-4.8); Lymphocytes % (A) 5 %; MCH 28.4 pg (25.0-35.0); MCHC 31.4 g/dL (31.0-37.0); MCV 90.3 fL (80.0-100.0); Mean Platelet Volume 8.1; Monocytes # (A) 0.7 k/uL (0-1.0); Monocytes % (A) 5 %; Neutrophils % (A) 87 %; Platelet Count 219 k/uL (150-450); RBC 5.33 m/uL (4.30-5.90); WBC 13.9 k/uL (3.8-10.6)
[2019-10-12 05:55] LABS: ALT 21 U/L (4-49); AST 23 U/L (17-59); African American GFR (CKD) >90 (>60 ml/min/1.73 sqM); Albumin 3.8 g/dL (3.5-5.0); Alkaline Phosphatase 101 U/L (38-126); Anion Gap 9 mmol/L; Blood Urea Nitrogen 22 mg/dL (9-20); Calcium 9.1 mg/dL (8.4-10.2); Carbon Dioxide 22 mmol/L (22-30); Chloride 107 mmol/L (98-107); Glucose 136 mg/dL (74-99); Magnesium 1.9 mg/dL (1.6-2.3); Non-African American GFR(CKD) >90 (>60 ml/min/1.73 sqM); Potassium 4.4 mmol/L (3.5-5.1); Sodium 138 mmol/L (137-145); Total Protein 6.3 g/dL (6.3-8.2)
[2019-10-12 05:56] LABS: INR 0.9 (<1.2); Prothrombin Time 9.7 sec (9.0-12.0)
[2019-10-12 06:02] LABS: D-Dimer 2.22 mg/L FEU (<0.60)
[2019-10-12 07:26] LABS: Appearance,Urine Clear (Clear); Bilirubin,Urine Negative (Negative); Blood,Urine Negative (Negative); Color,Urine Yellow; Glucose,Urine (UA) Negative (Negative); Ketones,Urine Negative (Negative); Leukocyte Esterase,Urine Negative (Negative); Nitrite,Urine Negative (Negative); PH, Urine 5.5 (5.0-8.0); Protein,Urine Negative (Negative); Specific Gravity,Urine 1.017 (1.001-1.035); Urobilinogen,Urine <2.0 mg/dL (<2.0)
[2019-10-12] MEDS ORDERED: NITROGLYCERIN SL TABS 0.4 MG TAB SUBLINGUAL PRN (07:41)
--- NOTE | 2019-10-12 08:27 | CT ---
EXAMINATION TYPE: CT chest angio for PE DATE OF EXAM: 10/12/2019 COMPARISON: CT chest abdomen dated 08/01/2016 HISTORY: SOB CT DLP: 657.4 mGycm. Automated Exposure Control for Dose Reduction was Utilized. CONTRAST: CTA scan of the thorax is performed with IV Contrast, patient injected with 95 mL of Isovue 370, pulm onary embolism protocol. MIP Images are created on CT scanner and reviewed. FINDINGS: LUNGS: Multifocal consolidations are seen, right middle lobe, and tree-in-bud opacities in the upper lobes as well as within the right lower lobe. Left lower lobe is spared. No pleural effusion or pneum othorax. The tracheobronchial tree is patent. MEDIASTINUM: There is satisfactory enhancement of the pulmonary artery and its branches, there is no CT evidence for pulmonary embolism. There are no greater than 1 cm hilar or mediastinal lymph nodes. Trace pericardial effusion. No cardiomegaly. Moderate coronary calcifications within the left anteri or descending coronary artery. OTHER: Small hiatal hernia and nonenlarged adjacent paraesophageal lymph nodes. Partially visualized 2.7 cm left renal cyst. Minimal multilevel degenerative change of the spine. IMPRESSION: 1. No evidence of pulmonary embolus. 2. Multifocal airspace disease most compatible with pneumonia. Some of these opacities are tree-in-bu d and can be seen in atypical infectious etiology such as mycobacterium or less likely tuberculosis.
[2019-10-12] MEDS: CHOLECALCIFEROL 1,000 UNIT TAB PO SCH (08:48)
[2019-10-12] MEDS: CLOPIDOGREL 75 MG TAB PO SCH ×2 (08:48→08:49)
[2019-10-12] MEDS: ATENOLOL 50 MG TAB PO SCH ×2 (08:49→09:55)
[2019-10-12] MEDS: ATORVASTATIN 40 MG TAB PO SCH (08:49)
[2019-10-12] MEDS ORDERED: cefTRIAXone IN SWFI 1,000 MG/10 ML SYRINGE IVP STA (09:49)
[2019-10-12] MEDS ORDERED: AZITHROMYCIN 500 MG in SODIUM CHLORIDE 0.9% 250 ML IVPB STA (09:49)
[2019-10-12] MEDS: LISINOPRIL 5 MG TAB PO SCH (09:55)
[2019-10-12] MEDS: CHLORTHALIDONE 25 MG TAB PO SCH (09:56)
--- NOTE | 2019-10-12 12:20 | ECHOF ---
Referral Reason:hypertensive emergency MEASUREMENTS -------- HEIGHT: 180.3 cm WEIGHT: 108.9 kg BP: RVIDd: 2.2 cm (< 3.3) IVSd: 1.0 cm (0.6 - 1.1) LVIDd: 4.0 cm (3.9 - 5.3) LVPWd: 1.2 cm (0.6 - 1.1) IVSs: 1.4 cm LVIDs: 2.3 cm LVPWs: 2.0 cm Ao Diam: 3.9 cm (2.0 - 3.7) AV Cusp: 2.2 cm (1.5 - 2.6) LA Diam: 3.4 cm (2.7 - 3.8) MV E Tobias: 0.95 m/s MV DecT: 94 ms MV A Tobias: 0.99 m/s MV E/A Ratio: 0.96 RAP: 5.00 mmHg RVSP: 13.89 mmHg FINDINGS -------- Resting tachycardia (HR>100bpm). This was a technically difficult study with suboptimal views. The left ventricular size is normal. There is borderline concentric left ventricular hypertrophy. Overall left ventricular systolic function is normal with, an EF between 60 - 65 %. The right ventricle is normal in size. The left atrial size is normal. The right atrial size is normal. The aortic valve is trileaflet and appears structurally normal. The mitral valve is normal. There is trace mitral regurgitation. The tricuspid valve appears structurally normal. Trace tricuspid regurgitation present. Right rajiv tricular systolic pressure is normal at < 35 mmHg. There is no pulmonic regurgitation present. The aortic root size is normal. Normal inferior vena cava with normal inspiratory collapse consistent with estimated right atrial pre ssure of 5 mmHg. There is no pericardial effusion. CONCLUSIONS -------- 1. Resting tachycardia (HR>100bpm). 2. This was a technically difficult study with suboptimal views. 3. The left ventricular size is normal. 4. There is borderline concentric left ventricular hypertrophy. 5. Overall left ventricular systolic function is normal with, an EF between 60 - 65 %. 6. The right ventricle is normal in size. 7. The left atrial size is normal. 8. The right atrial size is normal. 9. The aortic valve is trileaflet and appears structurally normal. 10. The mitral valve is normal. 11. There is trace mitral regurgitation. 12. The tricuspid valve appears structurally normal. 13. Trace tricuspid regurgitation present. 14. Right ventricular systolic pressure is normal at < 35 mmHg. 15. There is no pulmonic regurgitation present. 16. The aortic root size is normal. 17. Normal inferior vena cava with normal inspiratory collapse consistent with estimated right atrial pressure of 5 mmHg. 18. There is no pericardial effusion. ECOLOGICAL MODELER: Griselda Che RDCS
[2019-10-12] MEDS: NITROGLYCERIN OINT 1 INCH/GM PACKET TOPICAL SCH ×3 (12:32→22:56)
[2019-10-12] MEDS: IPRATROPIUM 0.5 MG/2.5 ML NEBU INHALATION SCH ×3 (13:18→22:03)
[2019-10-12] MEDS: PANTOPRAZOLE 40 MG/10 ML VIAL IVP SCH (17:23)
[2019-10-12] MEDS: clonazePAM 1 MG TAB PO SCH (20:54)
[2019-10-12] MEDS: GABAPENTIN 400 MG CAP PO SCH (20:54)
[2019-10-12] MEDS: CILOSTAZOL 100 MG TAB PO SCH (22:55)
[2019-10-13 01:12] LABS: Cholesterol 98 mg/dL (<200); HDL Cholesterol 33 mg/dL (40-60); LDL Cholesterol,Calculated 53 mg/dL (0-99); Triglycerides 60 mg/dL (<150)
[2019-10-13] MEDS: NITROGLYCERIN OINT 1 INCH/GM PACKET TOPICAL SCH ×4 (06:14→23:39)
[2019-10-13 09:13] LABS: Basophils % (A) 0 %; Eosinophils # (A) 0.1 k/uL (0-0.7); Eosinophils % (A) 0 %; HGB 13.7 gm/dL (13.0-17.5); Lymphocytes # (A) 1.1 k/uL (1.0-4.8); Lymphocytes % (A) 6 %; MCH 29.7 pg (25.0-35.0); MCHC 32.7 g/dL (31.0-37.0); MCV 90.9 fL (80.0-100.0); Mean Platelet Volume 8.1; Monocytes # (A) 0.7 k/uL (0-1.0); Monocytes % (A) 4 %; Neutrophils # (A) 14.9 k/uL (1.3-7.7); Neutrophils % (A) 87 %; Platelet Count 217 k/uL (150-450); RBC 4.62 m/uL (4.30-5.90); RDW 14.1 % (11.5-15.5); WBC 17.1 k/uL (3.8-10.6)
[2019-10-13 09:40] LABS: African American GFR (CKD) >90 (>60 ml/min/1.73 sqM); Anion Gap 7 mmol/L; Blood Urea Nitrogen 20 mg/dL (9-20); Carbon Dioxide 23 mmol/L (22-30); Chloride 110 mmol/L (98-107); Glucose 103 mg/dL (74-99); Non-African American GFR(CKD) 89 (>60 ml/min/1.73 sqM); Potassium 4.2 mmol/L (3.5-5.1); Sodium 140 mmol/L (137-145)
[2019-10-13] MEDS: ASPIRIN 325 MG TAB PO SCH (09:43)
[2019-10-13] MEDS: CHOLECALCIFEROL 1,000 UNIT TAB PO SCH (09:44)
[2019-10-13] MEDS: CHLORTHALIDONE 25 MG TAB PO SCH (09:44)
[2019-10-13] MEDS: LISINOPRIL 5 MG TAB PO SCH (09:45)
[2019-10-13] MEDS: ATORVASTATIN 40 MG TAB PO SCH (09:45)
[2019-10-13] MEDS: CLOPIDOGREL 75 MG TAB PO SCH (09:45)
[2019-10-13] MEDS: ATENOLOL 50 MG TAB PO SCH (09:46)
[2019-10-13] MEDS: PANTOPRAZOLE 40 MG/10 ML VIAL IVP SCH (09:46)
[2019-10-13] MEDS: IPRATROPIUM 0.5 MG/2.5 ML NEBU INHALATION SCH ×4 (10:01→20:24)
[2019-10-13] MEDS: CILOSTAZOL 100 MG TAB PO SCH ×2 (11:10→20:47)
[2019-10-13] MEDS ORDERED: POLYETHYLENE GLYCOL 3350 17 GM POWD.PACK PO STA (11:37)
[2019-10-13] MEDS: methylPREDNISolone SOD SUCCI 40 MG/ML 1 ML VIAL IV SCH ×2 (16:11→23:39)
[2019-10-13 16:44] LABS: Glucose,Whole Blood 96 mg/dL (75-99)
[2019-10-13] MEDS: INSULIN ASPART (NovoLOG) 100 UNIT/ML VIAL SQ SCH ×2 (16:52→20:47)
[2019-10-13 20:08] LABS: Glucose,Whole Blood 142 mg/dL (75-99)
[2019-10-13] MEDS: GABAPENTIN 400 MG CAP PO SCH (20:46)
[2019-10-13] MEDS: clonazePAM 1 MG TAB PO SCH (20:46)
[2019-10-14 06:13] LABS: Glucose,Whole Blood 163 mg/dL (75-99)
[2019-10-14] MEDS: INSULIN ASPART (NovoLOG) 100 UNIT/ML VIAL SQ SCH ×4 (06:39→21:20)
[2019-10-14] MEDS: NITROGLYCERIN OINT 1 INCH/GM PACKET TOPICAL SCH ×4 (06:39→23:20)
[2019-10-14] MEDS: PANTOPRAZOLE 40 MG TABLET PO SCH (06:39)
[2019-10-14 07:25] LABS: African American GFR (CKD) >90 (>60 ml/min/1.73 sqM); Anion Gap 4 mmol/L; Blood Urea Nitrogen 19 mg/dL (9-20); Calcium 8.9 mg/dL (8.4-10.2); Carbon Dioxide 28 mmol/L (22-30); Chloride 104 mmol/L (98-107); Glucose 137 mg/dL (74-99); Non-African American GFR(CKD) >90 (>60 ml/min/1.73 sqM); Potassium 5.3 mmol/L (3.5-5.1); Sodium 136 mmol/L (137-145)
[2019-10-14 07:27] LABS: Basophils % (A) 0 %; Eosinophils % (A) 0 %; HCT 41.9 % (39.0-53.0); HGB 13.7 gm/dL (13.0-17.5); Lymphocytes # (A) 0.6 k/uL (1.0-4.8); Lymphocytes % (A) 6 %; MCH 29.7 pg (25.0-35.0); MCHC 32.8 g/dL (31.0-37.0); MCV 90.7 fL (80.0-100.0); Mean Platelet Volume 8.1; Monocytes # (A) 0.3 k/uL (0-1.0); Monocytes % (A) 3 %; Neutrophils # (A) 10.3 k/uL (1.3-7.7); Neutrophils % (A) 91 %; Platelet Count 215 k/uL (150-450); RBC 4.62 m/uL (4.30-5.90); RDW 14.2 % (11.5-15.5); WBC 11.4 k/uL (3.8-10.6)
[2019-10-14] MEDS: methylPREDNISolone SOD SUCCI 40 MG/ML 1 ML VIAL IV SCH ×3 (08:41→23:20)
[2019-10-14] MEDS: ATORVASTATIN 40 MG TAB PO SCH (08:43)
[2019-10-14] MEDS: ASPIRIN 325 MG TAB PO SCH (08:43)
[2019-10-14] MEDS: CHOLECALCIFEROL 1,000 UNIT TAB PO SCH (08:46)
[2019-10-14] MEDS: LISINOPRIL 5 MG TAB PO SCH (08:47)
[2019-10-14] MEDS: PSYLLIUM HUSK 100% 6 GM PACKET PO SCH (08:48)
[2019-10-14] MEDS: CLOPIDOGREL 75 MG TAB PO SCH (08:57)
[2019-10-14] MEDS: CHLORTHALIDONE 25 MG TAB PO SCH (08:58)
[2019-10-14] MEDS: IPRATROPIUM 0.5 MG/2.5 ML NEBU INHALATION SCH ×4 (09:12→20:13)
[2019-10-14] MEDS: CILOSTAZOL 100 MG TAB PO SCH ×2 (09:59→21:19)
--- NOTE | 2019-10-14 10:20 | P.HPIM ---
History of Present Illness H&P Date: 10/13/19 Chief Complaint: shortness of breath Oliver Rodriguez is a 69 yo M with PMH of COPD, RA, HTN, HLD who presented to the ED complaining of severe dyspnea. He states he had been trying to get to sleep but felt severely dyspneic so called EMS. He denies any respiratory symptoms earlier in the day including cough, fever, chills, sore throat or congestion. He denies sick contacts. He is a former smoker. In the ED he was febrile, tachypenic and tachycardic. WBC 14k, D dimer 2.2, Cr at baseline, BNP and trop wnl. CT chest with multifocal airspace disease. Procalcitonin 1.65. Review of Systems All systems: negative Constitutional: Reports fever, Reports malaise, Reports weakness, Denies chills Eyes: denies blurred vision, denies pain Ears, nose, mouth and throat: Denies headache, Denies sore throat Cardiovascular: Reports shortness of breath, Denies chest pain Respiratory: Reports as per HPI, Reports dyspnea, Reports wheezing, Denies cough Gastrointestinal: Denies abdominal pain, Denies diarrhea, Denies nausea, Denies vomiting Musculoskeletal: Denies myalgias Integumentary: Denies pruritus, Denies rash Neurological: Denies numbness, Denies weakness Psychiatric: Denies anxiety, Denies depression Endocrine: Denies fatigue, Denies weight change Past Medical History Past Medical History: COPD, Deep Vein Thrombosis (DVT), GERD/Reflux, Hyperlipidemia, Hypertension, Osteoarthritis (OA), Rheumatoid Arthritis (RA), Skin Disorder, Vascular Disorder Additional Past Medical History / Comment(s): Popliteal artery aneurysm, wound left thigh area History of Any Multi-Drug Resistant Organisms: None Reported Past Surgical History: Adenoidectomy, Appendectomy, Back Surgery, Heart Catheterization, Tonsillectomy Additional Past Surgical History / Comment(s): Fem Pop Bypass secondary to popliteal artery aneurysm. Cataract surgery, pilonadal cyst, left medial thigh excision debridement Past Anesthesia/Blood Transfusion Reactions: Previous Problems w/ Anesthesia Additional Past Anesthesia/Blood Transfusion Reaction / Comment(s): SOB after last procedure related to COPD per pt. Past Psychological History: No Psychological Hx Reported Smoking Status: Former smoker Past Alcohol Use History: Rare Additional Past Alcohol Use History / Comment(s): pt hardly drinks etoh Past Drug Use History: None Reported Additional Drug Use History / Comment(s): Patient was a smoker of one and half packs per day for greater than 40 years and quit March 2018. No illicit drug use. Rare alcohol intake. - Past Family History Brother(s) Family Medical History: Diabetes Mellitus Father Family Medical History: Cancer Medications and Allergies Home Medications Medication Instructions Recorded Confirmed Type Aspirin 81 mg PO DAILY 04/08/18 10/12/19 History Atorvastatin [Lipitor] 40 mg PO DAILY 04/08/18 10/12/19 History Cholecalciferol [Vitamin D3 (25 1,000 unit PO DAILY 04/08/18 10/12/19 History Mcg = 1000 Iu)] Gabapentin [Neurontin] 400 mg PO HS 04/08/18 10/12/19 History Lisinopril [Zestril] 5 mg PO DAILY 04/08/18 10/12/19 History Tiotropium 18 Mcg/Puff [Spiriva] 18 mcg INHALATION DAILY 04/08/18 10/12/19 History clonazePAM 1 mg PO HS 04/08/18 10/12/19 History Atenolol [Tenormin] 50 mg PO DAILY 10/12/19 10/12/19 History Cilostazol [Pletal] 100 mg PO BID 10/12/19 10/12/19 History L.acidoph,Paracasei, B.lactis 1 cap PO DAILY 10/12/19 10/12/19 History [Probiotic] Allergies Allergy/AdvReac Type Severity Reaction Status Date / Time Sulfa (Sulfonamide Allergy Unknown Verified 10/12/19 09:28 Antibiotics) Physical Exam Vitals: Vital Signs Temp Pulse Pulse Resp BP BP Pulse Ox 10/13/19 04:00 83 16 127/68 97 10/13/19 00:00 98.4 F 87 18 136/68 94 L 10/12/19 22:14 84 10/12/19 22:03 88 10/12/19 20:00 98.2 F 86 20 109/66 95 10/12/19 17:01 84 10/12/19 16:49 86 10/12/19 16:00 99.0 F 85 114/66 92 L 10/12/19 13:28 109 H 10/12/19 13:18 102 H 10/12/19 12:13 98 16 135/57 95 10/12/19 08:51 115 H 16 127/84 95 Intake and Output 10/12/19 10/13/19 10/13/19 22:59 06:59 14:59 Intake Total 240 Balance 240 Intake: Oral 240 Other: Voiding Method Toilet # Voids 1 1 1 Weight 112 kg General: well nourished, well developed white male on 2 L O2. NAD Eyes: PERRL, EOMI, conjunctiva normal HENT: normocephalic, mucus membranes moist Neck: supple, no JVD Lungs: normal respiratory effort. Rhonchi and wheezing throughout CV: Regular rate and rhythm, no murmur. Peripheral pulses 2+ Abdomen: soft, nondistended, no organomegaly Lymph: no cervical or axillary LAD Skin: warm and dry. Neuro: A&Ox3, normal mood and affect Results CBC & Chem 7: 10/14/19 06:49 10/14/19 06:49 Labs: Abnormal Lab Results - Last 24 Hours (Table) 10/12/19 Range/Units 05:25 HDL Cholesterol 33 L (40-60) mg/dL Thrombosis Risk Factor Assmnt - Choose All That Apply Each Factor Represents 1 point: Obesity (BMI >25), Swollen legs (current) Each Risk Factor Represents 2 Points: Age 61-74 years Thrombosis Risk Factor Assessment Total Risk Factor Score: 4 Thrombosis Risk Factor Assessment Level: Moderate Risk Assessment and Plan (1) Severe sepsis with acute organ dysfunction Current Visit: Yes Status: Acute Code(s): A41.9 - SEPSIS, UNSPECIFIED ORGANISM; R65.20 - SEVERE SEPSIS WITHOUT SEPTIC SHOCK SNOMED Code(s): 16211236 (2) Hypertension Current Visit: Yes Status: Acute Code(s): I10 - ESSENTIAL (PRIMARY) HYPERTENSION SNOMED Code(s): 94996711 (3) Hyperlipidemia Current Visit: Yes Status: Acute Code(s): E78.5 - HYPERLIPIDEMIA, UNSP ECIFIED SNOMED Code(s): 35400144 (4) COPD (chronic obstructive pulmonary disease) Current Visit: Yes Status: Acute Code(s): J44.9 - CHRONIC OBSTRUCTIVE PULMONARY DISEASE, UNSPECIFIED SNOMED Code(s): 86325394 (5) Peripheral vascular disease Current Visit: Yes Status: Acute Code(s): I73.9 - PERIPHERAL VASCULAR DISEASE, UNSPECIFIED SNOMED Code(s): 693604634 Plan: 1. Severe sepsis due to pneumonia. COPD exacerbation. SIRS 3/4 with elevated procalcitonin. Rocephin and azithromycin. IV solumedrol. Nebulizer treatments 2. Hypertensive urgency. Secondary to above. Echo performed in ED with normal EF, no valvular pathology. Continue home antihypertensives 3. Peripheral vascular disease. Continue plavix and pletal 4. GERD. Continue protonix 5. RA. Continue gabapentin DVT prophylaxis lovenox
[2019-10-14] MEDS: AZITHROMYCIN 250 MG TAB PO SCH (10:35)
[2019-10-14] MEDS: ATENOLOL 50 MG TAB PO SCH ×2 (10:36→17:39)
[2019-10-14] MEDS: ENOXAPARIN 40 MG/0.4 ML SYRINGE SQ SCH (10:37)
[2019-10-14 11:48] LABS: Glucose,Whole Blood 108 mg/dL (75-99)
--- NOTE | 2019-10-14 15:00 | P.PN ---
Subjective Progress Note Date: 10/14/19 Oliver Rodriguez is a 69 yo M with PMH of COPD, RA, HTN, HLD who presented to the ED complaining of severe dyspnea. He states he had been trying to get to sleep but felt severely dyspneic so called EMS. He denies any respiratory symptoms earlier in the day including cough, fever, chills, sore throat or congestion. He denies sick contacts. He is a former smoker. In the ED he was febrile, tachypenic and tachycardic. WBC 14k, D dimer 2.2, Cr at baseline, BNP and trop wnl. CT chest with multifocal airspace disease. Procalcitonin 1.65. Significant clinical improvement on antibiotics, nebulized bronchodilators, IV steroids. WBC trending down to 11.4. T-max 99. Blood cultures reporting no growth at 48 hours. Maintaining O2 sats of mid 90s on 2 L nasal cannula. Echo reporting EF 60-65%. Objective - Vital Signs Vital signs: Vital Signs Temp 99.0 F 10/14/19 12:10 Pulse 90 10/14/19 12:39 Resp 16 10/14/19 12:10 BP 142/89 10/14/19 12:10 Pulse Ox 94 L 10/14/19 12:10 Intake & Output 10/13/19 10/14/19 10/14/19 18:59 06:59 18:59 Intake Total 1080 480 Balance 1080 480 Weight 111.18 kg Intake: Oral 1080 480 Other: Voiding Method Toilet Toilet Toilet # Voids 2 1 1 # Bowel Movements 1 - Exam General: Sitting up in bed, no acute distress Eyes: PERRL, EOMI, conjunctiva normal, HENT: normocephalic, mucus membranes moist Neck: supple, no JVD Lungs: normal respiratory effort. Better air entry .Rhonchi scattered. CV: Regular rate and rhythm, no murmur. Peripheral pulses 2+ Abdomen: soft, nondistended, no organomegaly Lymph: no cervical or axillary LAD Skin: warm and dry. Neuro: A&Ox3, normal mood and affect - Labs CBC & Chem 7: 10/14/19 06:49 10/14/19 06:49 Labs: Abnormal Lab Results - Last 24 Hours (Table) 10/13/19 10/13/19 10/14/19 Range/Units 08:39 20:07 06:11 WBC (3.8-10.6) k/uL Neutrophils # (1.3-7.7) k/uL Lymphocytes # (1.0-4.8) k/uL Sodium (137-145) mmol/L Potassium (3.5-5.1) mmol/L Glucose (74-99) mg/dL POC Glucose (mg/dL) 142 H 163 H (75-99) mg/dL Procalcitonin 1.65 H (0.02-0.09) ng/mL 10/14/19 10/14/19 10/14/19 Range/Units 06:49 06:49 11:42 WBC 11.4 H (3.8-10.6) k/uL Neutrophils # 10.3 H (1.3-7.7) k/uL Lymphocytes # 0.6 L (1.0-4.8) k/uL Sodium 136 L (137-145) mmol/L Potassium 5.3 H (3.5-5.1) mmol/L Glucose 137 H (74-99) mg/dL POC Glucose (mg/dL) 108 H (75-99) mg/dL Procalcitonin (0.02-0.09) ng/mL Microbiology - Last 24 Hours (Table) 10/12/19 10:04 Blood Culture - Preliminary Blood No Growth after 48 hours Assessment and Plan Assessment: (1) Severe sepsis with acute organ dysfunction, secondary to pneumonia, multifocal, possible Mycobacterium Current Visit: Yes Status: Acute Code(s): A41.9 - SEPSIS, UNSPECIFIED ORGANISM; R65.20 - SEVERE SEPSIS WITHOUT SEPTIC SHOCK SNOMED Code(s): 02129655 (2) Hypertensive urgency secondary to the above (3) Hyperlipidemia Current Visit: Yes Status: Acute Code(s): E78.5 - HYPERLIPIDEMIA, UNSPECIFIED SNOMED Code(s): 03525140 (4) COPD (chronic obstructive pulmonary disease) Current Visit: Yes Status: Acute Code(s): J44.9 - CHRONIC OBSTRUCTIVE PULMONARY DISEASE, UNSPECIFIED SNOMED Code(s): 74661494 (5) Peripheral vascular disease Current Visit: Yes Status: Acute Code(s): I73.9 - PERIPHERAL VASCULAR DISEASE, UNSPECIFIED SNOMED Code(s): 415542241 (6) gastroesophageal reflux disease Plan: Continue on current medication regime ,monitoring and symptomatic treatmen t. Maintain nebulized bronchodilators, IV steroids, antibiotics. Convert steroids to oral in a.m. increase ambulation. The impression and plan of care has been dictated as directed. : I performed a history and examination of this patient, discussed the same with the dictator. I agree with the dictator's note ,documented as a scribe. Any additional findings or plans will be noted.
[2019-10-14 16:52] LABS: Glucose,Whole Blood 114 mg/dL (75-99)
[2019-10-14 20:30] LABS: Glucose,Whole Blood 172 mg/dL (75-99)
[2019-10-14] MEDS: GABAPENTIN 400 MG CAP PO SCH (21:19)
[2019-10-14] MEDS: clonazePAM 1 MG TAB PO SCH (21:19)
[2019-10-15 06:10] LABS: Glucose,Whole Blood 137 mg/dL (75-99)
[2019-10-15] MEDS: PANTOPRAZOLE 40 MG TABLET PO SCH (06:28)
[2019-10-15] MEDS: INSULIN ASPART (NovoLOG) 100 UNIT/ML VIAL SQ SCH (06:29)
[2019-10-15] MEDS: NITROGLYCERIN OINT 1 INCH/GM PACKET TOPICAL SCH (06:29)
[2019-10-15 06:48] LABS: Basophils % (A) 0 %; Eosinophils % (A) 0 %; HCT 42.3 % (39.0-53.0); HGB 13.8 gm/dL (13.0-17.5); Lymphocytes # (A) 0.7 k/uL (1.0-4.8); Lymphocytes % (A) 6 %; MCH 29.4 pg (25.0-35.0); MCHC 32.6 g/dL (31.0-37.0); MCV 90.4 fL (80.0-100.0); Mean Platelet Volume 8.3; Monocytes # (A) 0.4 k/uL (0-1.0); Monocytes % (A) 4 %; Neutrophils # (A) 10.8 k/uL (1.3-7.7); Neutrophils % (A) 89 %; Platelet Count 223 k/uL (150-450); RBC 4.68 m/uL (4.30-5.90); WBC 12.1 k/uL (3.8-10.6)
[2019-10-15] MEDS: IPRATROPIUM 0.5 MG/2.5 ML NEBU INHALATION SCH ×2 (07:51→11:58)
[2019-10-15] MEDS ORDERED: predniSONE 20 MG TAB PO SCH (08:00)
[2019-10-15 08:03] VITALS: PULSE 78
[2019-10-15] MEDS: ATENOLOL 50 MG TAB PO SCH ×2 (08:20→10:11)
[2019-10-15] MEDS: ASPIRIN 325 MG TAB PO SCH (08:20)
[2019-10-15] MEDS: ATORVASTATIN 40 MG TAB PO SCH (08:20)
[2019-10-15] MEDS: AZITHROMYCIN 250 MG TAB PO SCH (08:21)
[2019-10-15] MEDS: CHOLECALCIFEROL 1,000 UNIT TAB PO SCH (08:22)
[2019-10-15] MEDS: CILOSTAZOL 100 MG TAB PO SCH (08:22)
[2019-10-15] MEDS: CLOPIDOGREL 75 MG TAB PO SCH ×2 (08:24→08:57)
[2019-10-15] MEDS: ENOXAPARIN 40 MG/0.4 ML SYRINGE SQ SCH (08:25)
[2019-10-15] MEDS: LISINOPRIL 5 MG TAB PO SCH (08:25)
[2019-10-15] MEDS: PSYLLIUM HUSK 100% 6 GM PACKET PO SCH (08:25)
[2019-10-15 10:58] VITALS: RESP 16
[2019-10-15 10:59] VITALS: BP 131/97; TEMP 97.8
--- NOTE | 2019-10-15 15:59 | P.DS ---
Providers Date of admission: 10/12/19 07:41 Expected date of discharge: 10/15/19 Attending physician: Phil Belcher MD Primary care physician: Alona Navarrete Hospital Course: Final Diagnoses: (1) Severe sepsis with acute organ dysfunction, secondary to pneumonia, multifocal, possible Mycobacterium Current Visit: Yes Status: Acute Code(s): A41.9 - SEPSIS, UNSPECIFIED ORGANISM; R65.20 - SEVERE SEPSIS WITHOUT SEPTIC SHOCK SNOMED Code(s): 08702281 (2) Hypertensive urgency secondary to the above (3) Hyperlipidemia Current Visit: Yes Status: Acute Code(s): E78.5 - HYPERLIPIDEMIA, UNSPECIFIED SNOMED Code(s): 43216965 (4) COPD (chronic obstructive pulmonary disease) Current Visit: Yes Status: Acute Code(s): J44.9 - CHRONIC OBSTRUCTIVE PULMONARY DISEASE, UNSPECIFIED SNOMED Code(s): 11245755 (5) Peripheral vascular disease Current Visit: Yes Status: Acute Code(s): I73.9 - PERIPHERAL VASCULAR DISEASE, UNSPECIFIED SNOMED Code(s): 298844407 (6) gastroesophageal reflux disease Hospital course:Oliver Rodriguez is a 69 yo M with PMH of COPD, RA, HTN, HLD who presented to the ED complaining of severe dyspnea. He states he had been trying to get to sleep but felt severely dyspneic so called EMS. He denies any respiratory symptoms earlier in the day including cough, fever, chills, sore throat or congestion. He denies sick contacts. He is a former smoker. In the ED he was febrile, tachypenic and tachycardic. WBC 14k, D dimer 2.2, Cr at baseline, BNP and trop wnl. CT chest with multifocal airspace disease. P rocalcitonin 1.65. Significant clinical improvement on antibiotics, nebulized bronchodilators, IV steroids. WBC trending down to 11.4. T-max 99. Blood cultures reporting no growth at 48 hours. Maintaining O2 sats of mid 90s on 2 L nasal cannula. Echo reporting EF 60-65%. Significant clinical improvement. Patient is being discharged home in a stable condition with guarded prognosis. General:A& O X 3, NAD Lungs: normal respiratory effort. Better air entry. CV: Regular rate and rhythm, no murmur. Peripheral pulses 2+ Abdomen: soft, nondistended, no organomegaly,+BS Neuro: A&Ox3, normal mood and affect. No FOcal Def. The impression and plan of care has been dictated as directed. : I performed a history and examination of this patient, discussed the same with the dictator. I agree with the dictator's note ,documented as a scribe. Any additional findings or plans will be noted. Patient Condition at Discharge: Stable Plan - Discharge Summary Discharge Rx Participant: No New Discharge Prescriptions: New Amoxicillin/Potassium Clav [Augmentin 875-125 Tablet] 1 tab PO BID 3 Days #6 tab Psyllium Husk 100% [Metamucil Packet] 6 gm PO DAILY packet predniSONE 10 mg PO DIRECTED #30 tab Pantoprazole [Protonix] 40 mg PO AC-BRKFST #30 tablet. Azithromycin [Zithromax] 250 mg PO DAILY #3 tab Clopidogrel [Plavix] 75 mg PO DAILY tab Continue Aspirin 81 mg PO DAILY Gabapentin [Neurontin] 400 mg PO HS clonazePAM 1 mg PO HS Tiotropium 18 Mcg/Puff [Spiriva] 18 mcg INHALATION DAILY Cholecalciferol [Vitamin D3 (25 Mcg = 1000 Iu)] 1,000 unit PO DAILY Atorvastatin [Lipitor] 40 mg PO DAILY Lisinopril [Zestril] 5 mg PO DAILY Cilostazol [Pletal] 100 mg PO BID Atenolol [Tenormin] 50 mg PO DAILY L.acidoph,Paracasei, B.lactis [Probiotic] 1 cap PO DAILY Discharge Medication List Aspirin 81 mg PO DAILY 04/08/18 [History] Atorvastatin [Lipitor] 40 mg PO DAILY 04/08/18 [History] Cholecalciferol [Vitamin D3 (25 Mcg = 1000 Iu)] 1,000 unit PO DAILY 04/08/18 [History] Gabapentin [Neurontin] 400 mg PO HS 04/08/18 [History] Lisinopril [Zestril] 5 mg PO DAILY 04/08/18 [History] Tiotropium 18 Mcg/Puff [Spiriva] 18 mcg INHALATION DAILY 04/08/18 [History] clonazePAM 1 mg PO HS 04/08/18 [History] Atenolol [Tenormin] 50 mg PO DAILY 10/12/19 [History] Cilostazol [Pletal] 100 mg PO BID 10/12/19 [History] L.acidoph,Paracasei, B.lactis [Probiotic] 1 cap PO DAILY 10/12/19 [History] Amoxicillin/Potassium Clav [Augmentin 875-125 Tablet] 1 tab PO BID 3 Days #6 tab 10/15/19 [Rx] Azithromycin [Zithromax] 250 mg PO DAILY #3 tab 10/15/19 [Rx] Clopidogrel [Plavix] 75 mg PO DAILY tab 10/15/19 [Rx] Pantoprazole [Protonix] 40 mg PO AC-BRKFST #30 tablet. 10/15/19 [Rx] Psyllium Husk 100% [Metamucil Packet] 6 gm PO DAILY packet 10/15/19 [Rx] predniSONE 10 mg PO DIRECTED #30 tab 10/15/19 [Rx] Follow up Appointment(s)/Referral(s): Phil Belcher MD [STAFF PHYSICIAN] - 10/20/19 3:00 pm (In [facility].) Ambulatory/Diagnostic Orders: Complete Blood Count w/diff [LAB.AMB] Time Frame: 3 Days, Location: None Selected Patient Instructions/Handouts: COPD (Chronic Obstructive Pulmonary Disease) (DC), Pneumonia (DC) Activity/Diet/Wound Care/Special Instructions: PNEUMONIA 1. Continue coughing and breathing exercises to help clear your lungs of secretions. 2. Sit upright during the day to promote lung expansion. Avoid lying flat. 3. Use incentive spirometer every hour to open your airways. 4. Wash your hands before taking your medications or using your nebulizer. 5. Drink clear liquids as directed, they can help loosen secretions. Avoid milk products, as these can make secretions thicker. 6. Do not smoke, or be around others who smoke. 7. Call your physician if your shortness of breath worsens, if you develop an increased fever greater than 101. Discharge Disposition: HOME SELF-CARE
== END 2019-10-15 11:43 | disposition home or self-care (01) | DRG 871 ==
LOC: EC 05:05 → 3SCARD 07:41
PROVIDERS: ADMIT Family Medicine; ATTEND Family Medicine
PROC: 5A09457 Assistance with Respiratory Ventilation, 24-96 Consecutive Hours, Continuous Positive Airway Pressure (ICD-10-PCS; principal; 2019-10-12)
DX: A41.9 Sepsis, unspecified organism (principal); J18.9 Pneumonia, unspecified organism; J44.1 Chronic obstructive pulmonary disease with (acute) exacerbation; J44.0 Chronic obstructive pulmonary disease with (acute) lower respiratory infection; R65.20 Severe sepsis without septic shock; I10 Essential (primary) hypertension; I16.0 Hypertensive urgency; M06.9 Rheumatoid arthritis, unspecified; K21.9 Gastro-esophageal reflux disease without esophagitis; E78.5 Hyperlipidemia, unspecified; M19.90 Unspecified osteoarthritis, unspecified site; I73.9 Peripheral vascular disease, unspecified; Z79.02 Long term (current) use of antithrombotics/antiplatelets; Z79.82 Long term (current) use of aspirin; Z79.899 Other long term (current) drug therapy; Z87.891 Personal history of nicotine dependence; Z86.718 Personal history of other venous thrombosis and embolism; Z90.49 Acquired absence of other specified parts of digestive tract; Z87.2 Personal history of diseases of the skin and subcutaneous tissue; Z95.828 Presence of other vascular implants and grafts; Z98.890 Other specified postprocedural states; Z98.49 Cataract extraction status, unspecified eye; Z88.2 Allergy status to sulfonamides; Z83.3 Family history of diabetes mellitus; Z80.9 Family history of malignant neoplasm, unspecified
CPT/HCPCS: 36415; 71045; 71275; 80048; 80053; 80061; 81003; 83605; 83735; 83880; 84145; 84484; 85025; 85379; 85610; 85730; 87040; 93005; 93306; 94640; 94660; 96365; 96366; 96375; 99285

== ENCOUNTER → 2020-02-11 | Outpatient (CLI) | payer MEDICARE ==
[2020-02-11 12:11] LABS: African American GFR (CKD) >90 (>60 ml/min/1.73 sqM); Blood Urea Nitrogen 17 mg/dL (9-20); Non-African American GFR(CKD) 89 (>60 ml/min/1.73 sqM)
--- NOTE | 2020-02-11 12:45 | CT ---
EXAMINATION TYPE: CT chest w con DATE OF EXAM: 02/11/2020 COMPARISON: 10/12/2019 HISTORY: Recent pneumonia. CT DLP: 538.4 mGycm Automated exposure control for dose reduction was used. CONTRAST: CT scan of the chest is performed with IV Contrast, patient injected with 100 mL of Isovue M300. FINDINGS: LUNGS: The lungs are grossly clear, there is no concerning parenchymal mass or nodule identified. T here is no pleural effusion or pneumothorax seen. The tracheobronchial tree is patent. MEDIASTINUM: There are no greater than 1 cm hilar or mediastinal lymph nodes. Mild atherosclerotic ch chey of the aorta. Coronary artery calcification seen. Heart size normal. OTHER: There is hypertrophic and degenerative change of the spine. There is low in attenuation sugge stive of fatty infiltration. Area of increased attenuation near the dome of the liver left lobe likel y represents focal fatty sparing. Simple appearing left renal cyst noted. IMPRESSION: 1. No evidence of consolidative pneumonia. Lungs are clear. 2. Dense coronary artery calcification correlate clinically. 3. Probable hepatic steatosis with focal fatty sparing correlate with LFTs as clinically warranted.
== END | disposition home or self-care (01) ==
LOC: RADCTMAIN 11:36
PROVIDERS: ATTEND Family Medicine
DX: I25.10 Atherosclerotic heart disease of native coronary artery without angina pectoris (principal); R91.8 Other nonspecific abnormal finding of lung field; Z88.2 Allergy status to sulfonamides
CPT/HCPCS: 82565; 84520; 71260; 36415; Q9967

== ENCOUNTER 2020-04-10 11:26 | Inpatient (IN) | payer MEDICARE ==
[2020-04-10] MEDS ORDERED: SODIUM CHLORIDE 0.9% 1,000 ML IV STA (11:50)
[2020-04-10] MEDS ORDERED: IOPAMIDOL CONTRAST (ORAL USE) VIAL PO PRN (11:51)
[2020-04-10 12:27] LABS: Basophils % (A) 0 %; Eosinophils # (A) 0.4 k/uL (0-0.7); Eosinophils % (A) 5 %; HCT 48.4 % (39.0-53.0); HGB 15.8 gm/dL (13.0-17.5); Lymphocytes # (A) 1.1 k/uL (1.0-4.8); Lymphocytes % (A) 13 %; MCH 29.3 pg (25.0-35.0); MCHC 32.7 g/dL (31.0-37.0); MCV 89.4 fL (80.0-100.0); Mean Platelet Volume 8.1; Monocytes # (A) 0.6 k/uL (0-1.0); Monocytes % (A) 7 %; Neutrophils # (A) 6.2 k/uL (1.3-7.7); Neutrophils % (A) 72 %; Platelet Count 255 k/uL (150-450); RBC 5.41 m/uL (4.30-5.90); RDW 14.2 % (11.5-15.5); WBC 8.6 k/uL (3.8-10.6)
[2020-04-10 12:50] LABS: Partial Thromboplastin Time 23.4 sec (22.0-30.0); Prothrombin Time 9.9 sec (9.0-12.0)
[2020-04-10 13:05] LABS: Appearance,Urine Clear (Clear); Bilirubin,Urine Negative (Negative); Blood,Urine Negative (Negative); Color,Urine Yellow; Glucose,Urine (UA) Negative (Negative); Ketones,Urine Negative (Negative); Leukocyte Esterase,Urine Negative (Negative); Nitrite,Urine Negative (Negative); PH, Urine 5.5 (5.0-8.0); Protein,Urine Negative (Negative); Specific Gravity,Urine 1.024 (1.001-1.035); Urobilinogen,Urine <2.0 mg/dL (<2.0)
--- NOTE | 2020-04-10 13:08 | ED ---
Abdominal Pain HPI - General Chief Complaint: Abdominal Pain Stated Complaint: hernia and infection Time Seen by Provider: 04/10/20 11:41 Source: patient Mode of arrival: ambulatory Limitations: no limitations - History of Present Illness Initial Comments: Patient is 70-year-old male presenting to emergency Department with chief complaint of abdominal pain. States the symptoms of benign when for the past few months. States the pain is located in the left abdominal region. Patient states that her concern for hernia. States the pain is mostly located on the left lower quadrant region but occasionally radiates in the left groin. Patient contacted her primary care physician who spoke with . Patient states he was advised to come to the emergency department for evaluation. Patient denies any hematuria, hematochezia or melena. Also reports some right upper quadrant postprandial pain. Patient denies any nausea vomiting diarrhea. Denies any night sweats or chills. Denies any testicular tenderness or swelling. - Related Data Home Medications Medication Instructions Recorded Confirmed Aspirin 81 mg PO DAILY 04/08/18 10/12/19 Atorvastatin [Lipitor] 40 mg PO DAILY 04/08/18 10/12/19 Cholecalciferol [Vitamin D3 (25 1,000 unit PO DAILY 04/08/18 10/12/19 Mcg = 1000 Iu)] Gabapentin [Neurontin] 400 mg PO HS 04/08/18 10/12/19 Lisinopril [Zestril] 5 mg PO DAILY 04/08/18 10/12/19 Tiotropium 18 Mcg/Puff [Spiriva] 18 mcg INHALATION DAILY 04/08/18 10/12/19 clonazePAM 1 mg PO HS 04/08/18 10/12/19 Cilostazol [Pletal] 100 mg PO BID 10/12/19 10/12/19 L.acidoph,Paracasei, B.lactis 1 cap PO DAILY 10/12/19 10/12/19 [Probiotic] atenoloL [Tenormin] 50 mg PO DAILY 10/12/19 10/12/19 Previous Rx's Medication Instructions Recorded Amoxicillin/Potassium Clav 1 tab PO BID 3 Days #6 tab 10/15/19 [Augmentin 875-125 Tablet] Azithromycin [Zithromax] 250 mg PO DAILY #3 tab 10/15/19 Clopidogrel [Plavix] 75 mg PO DAILY tab 10/15/19 Pantoprazole [Protonix] 40 mg PO AC-BRKFST #30 tablet. 10/15/19 Psyllium Husk 100% [Metamucil 6 gm PO DAILY packet 10/15/19 Packet] predniSONE 10 mg PO DIRECTED #30 tab 10/15/19 Allergies Allergy/AdvReac Type Severity Reaction Status Date / Time Sulfa (Sulfonamide Allergy Unknown Verified 04/10/20 11:32 Antibiotics) Review of Systems ROS Statement: Those systems with pertinent positive or pertinent negative responses have been documented in the HPI. ROS Other: All systems not noted in ROS Statement are negative. 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 Cataract surgery, pilonadal cyst, left medial thigh excision debridement Past Anesthesia/Blood Transfusion Reactions: Previous Problems w/ Anesthesia Additional Past Anesthesia/Blood Transfusion Reaction / Comment(s): SOB after last procedure related to COPD per pt. Past Psychological History: No Psychological Hx Reported Smoking Status: Never smoker Past Alcohol Use History: Rare Past Drug Use History: None Reported - Past Family History Brother(s) Family Medical History: Diabetes Mellitus Father Family Medical History: Cancer General Exam Limitations: no limitations General appearance: alert, in no apparent distress, obese Head exam: Present: atraumatic, normocephalic, normal inspection Eye exam: Present: normal appearance, PERRL, EOMI Pupils: Present: normal accommodation ENT exam: Present: normal exam, normal oropharynx, mucous membranes moist, TM's normal bilaterally, normal external ear exam Neck exam: Present: normal inspection, full ROM. Absent: tenderness Respiratory exam: Present: normal lung sounds bilaterally. Absent: respiratory distress, wheezes Cardiovascular Exam: Present: regular rate, normal rhythm, normal heart sounds GI/Abdominal exam: Present: soft, tenderness (Mild left lower quadrant tenderness.). Absent: distended, guarding, rebound, rigid exam: Present: normal inspection. Absent: testicular tenderness, urethral discharge, scrotal swelling, vertical testicular lie, circumcision Extremities exam: Present: normal inspection, full ROM. Absent: tenderness Back exam: Present: normal inspection, full ROM. Absent: tenderness Neurological exam: Present: alert, oriented X3 Psychiatric exam: Present: normal affect, normal mood Skin exam: Present: warm, dry, intact, normal color Course Vital Signs 04/10/20 04/10/20 04/10/20 11:30 12:55 14:05 Temperature 98.8 F Pulse Rate 70 64 63 Respiratory 20 18 18 Rate Blood Pressure 154/85 140/99 145/95 O2 Sat by Pulse 99 98 99 Oximetry Medical Decision Making - Medical Decision Making Patient is 70-year-old male presenting to emergency Department with chief complaint abdominal pain. Exam patient has left lower quadrant abdominal tenderness. No significant groin pain. No testicular swelling or tenderness.CBC CMP and UA is unremarkable. Coags within normal limits. examine the patient and requested laboratory work, CT of abdomen and pelvis with oral and IV contrast. This revealed diverticulitis. HIDA scan pending. Patient will be admitted for further medical management. NPO. Patient started on Unasyn. Case discussed with physician. Admitting physician is - Lab Data Result diagrams: 04/10/20 12:01 04/10/20 12:50 Lab Results 04/10/20 04/10/20 04/10/20 Range/Units 12:00 12:01 12:01 WBC 8.6 (3.8-10.6) k/uL RBC 5.41 (4.30-5.90) m/uL Hgb 15.8 (13.0-17.5) gm/dL Hct 48.4 (39.0-53.0) % MCV 89.4 (80.0-100.0) fL MCH 29.3 (25.0-35.0) pg MCHC 32.7 (31.0-37.0) g/dL RDW 14.2 (11.5-15.5) % Plt Count 255 (150-450) k/uL Neutrophils % 72 % Lymphocytes % 13 % Monocytes % 7 % Eosinophils % 5 % Basophils % 0 % Neutrophils # 6.2 (1.3-7.7) k/uL Lymphocytes # 1.1 (1.0-4.8) k/uL Monocytes # 0.6 (0-1.0) k/uL Eosinophils # 0.4 (0-0.7) k/uL Basophils # 0.0 (0-0.2) k/uL PT 9.9 (9.0-12.0) sec INR 1.0 (<1.2) APTT 23.4 (22.0-30.0) sec Sodium (137-145) mmol/L Potassium (3.5-5.1) mmol/L Chloride (98-107) mmol/L Carbon Dioxide (22-30) mmol/L Anion Gap mmol/L BUN (9-20) mg/dL Creatinine (0.66-1.25) mg/dL Est GFR (CKD-EPI)AfAm (>60 ml/min/1.73 sqM) Est GFR (CKD-EPI)NonAf (>60 ml/min/1.73 sqM) Glucose (74-99) mg/dL Calcium (8.4-10.2) mg/dL Total Bilirubin (0.2-1.3) mg/dL AST (17-59) U/L ALT (4-49) U/L Alkaline Phosphatase (38-126) U/L Total Protein (6.3-8.2) g/dL Albumin (3.5-5.0) g/dL Amylase (30-110) U/L Lipase (23-300) U/L Urine Color Yellow Urine Appearance Clear (Clear) Urine pH 5.5 (5.0-8.0) Ur Specific [place] 1.024 (1.001-1.035) Urine Protein Negative (Negative) Urine Glucose (UA) Negative (Negative) Urine Ketones Negative (Negative) Urine Blood Negative (Negative) Urine Nitrite Negative (Negative) Urine Bilirubin Negative (Negative) Urine Urobilinogen <2.0 (<2.0) mg/dL Ur Leukocyte Esterase Negative (Negative) 04/10/20 Range/Units 12:50 WBC (3.8-10.6) k/uL RBC (4.30-5.90) m/uL Hgb (13.0-17.5) gm/dL Hct (39.0-53.0) % MCV (80.0-100.0) fL MCH (25.0-35.0) pg MCHC (31.0-37.0) g/dL RDW (11.5-15.5) % Plt Count (150-450) k/uL Neutrophils % % Lymphocytes % % Monocytes % % Eosinophils % % Basophils % % Neutrophils # (1.3-7.7) k/uL Lymphocytes # (1.0-4.8) k/uL Monocytes # (0-1.0) k/uL Eosinophils # (0-0.7) k/uL Basophils # (0-0.2) k/uL PT (9.0-12.0) sec INR (<1.2) APTT (22.0-30.0) sec Sodium 135 L (137-145) mmol/L Potassium 4.8 (3.5-5.1) mmol/L Chloride 107 (98-107) mmol/L Carbon Dioxide 23 (22-30) mmol/L Anion Gap 5 mmol/L BUN 16 (9-20) mg/dL Creatinine 0.64 L (0.66-1.25) mg/dL Est GFR (CKD-EPI)AfAm >90 (>60 ml/min/1.73 sqM) Est GFR (CKD-EPI)NonAf >90 (>60 ml/min/1.73 sqM) Glucose 91 (74-99) mg/dL Calcium 8.9 (8.4-10.2) mg/dL Total Bilirubin 0.8 (0.2-1.3) mg/dL AST 27 (17-59) U/L ALT 20 (4-49) U/L Alkaline Phosphatase 79 (38-126) U/L Total Protein 5.9 L (6.3-8.2) g/dL Albumin 3.5 (3.5-5.0) g/dL Amylase 47 (30-110) U/L Lipase 50 (23-300) U/L Urine Color Urine Appearance (Clear) Urine pH (5.0-8.0) Ur Specific [place] (1.001-1.035) Urine Protein (Negative) Urine Glucose (UA) (Negative) Urine Ketones (Negative) Urine Blood (Negative) Urine Nitrite (Negative) Urine Bilirubin (Negative) Urine Urobilinogen (<2.0) mg/dL Ur Leukocyte Esterase (Negative) Disposition Clinical Impression: Abdominal pain, Diverticulitis Disposition: ADMITTED IP TO THIS [facility] Condition: Good Additional Instructions: He will be admitted Is patient prescribed a controlled substance at d/c from ED?: No Referrals: Alona Navarrete DO [Primary Care Provider] - 1-2 days Time of Disposition: 14:26
[2020-04-10 13:13] LABS: ALT 20 U/L (4-49); AST 27 U/L (17-59); African American GFR (CKD) >90 (>60 ml/min/1.73 sqM); Albumin 3.5 g/dL (3.5-5.0); Alkaline Phosphatase 79 U/L (38-126); Amylase 47 U/L (30-110); Anion Gap 5 mmol/L; Blood Urea Nitrogen 16 mg/dL (9-20); Calcium 8.9 mg/dL (8.4-10.2); Carbon Dioxide 23 mmol/L (22-30); Chloride 107 mmol/L (98-107); Glucose 91 mg/dL (74-99); Non-African American GFR(CKD) >90 (>60 ml/min/1.73 sqM); Sodium 135 mmol/L (137-145); Total Bilirubin 0.8 mg/dL (0.2-1.3); Total Protein 5.9 g/dL (6.3-8.2)
[2020-04-10 13:21] LABS: Potassium 4.8 mmol/L (3.5-5.1)
--- NOTE | 2020-04-10 13:45 | P.GSHP ---
History of Present Illness H&P Date: 04/10/20 CHIEF COMPLAINT: Abdominal pain HISTORY OF PRESENT ILLNESS: This is a 70-year-old male with a known history of diverticulitis, COPD, peripheral vascular disease, GERD, hyperlipidemia, hypertension, rheumatoid arthritis, fem-pop bypass secondary to a popliteal artery aneurysm and a healed left leg wound. Patient presents to the emergency room with complaints of abdominal pain for over a month. He reports that he gets pain that shoots across his lower abdomen area especially after eating. He reports that he has been having constipation and having to strain to have a bowel movement. He denies any nausea or vomiting. He also has an umbilical hernia that is been present for about 3 months. Patient did have nausea and an episode of vomiting. Denies any fever or chills or sweats. Patient seen and examined in the ER with Dr. Burch. PAST MEDICAL HISTORY: See list. PAST SURGICAL HISTORY: See list. MEDICATIONS: See list. ALLERGIES: See list. SOCIAL HISTORY: No illicit drug use. REVIEW OF SYSTEMS: CONSTITUTIONAL: Denies fever or chills. HEENT: Denies blurred vision, vision changes, or eye pain. Denies hemoptysis CARDIOVASCULAR: Denies chest pain or pressure. RESPIRATORY: No shortness of breath. GASTROINTESTINAL: See HPI for pertinent findings HEMATOLOGIC: Denies bleeding disorders. GENITOURINARY: Denies any blood in urine or increased urinary frequency. SKIN: Denies pruitis. Denies rash. PHYSICAL EXAM: VITAL SIGNS: Reviewed GENERAL: Well-developed in no acute distress. HEENT: No sclera icterus. Extraocular movements grossly intact. Moist buccal mucosa. Head is atraumatic, normocephalic. No nasal drainage. ABDOMEN: Soft. Obese. Nondistended. Umbilical hernia present and possibly containing fat. Tenderness with palpation of the lower abdomen NEUROLOGIC: Alert and oriented. Cranial nerves II through XII grossly intact. LABORATORY DATA: WBC 8.6 hemoglobin 15.8 AST 27 ALT 20 lipase 50 amylase 47 IMAGING: ASSESSMENT: 1. Abdominal pain 2. Nausea and vomiting 3. Umbilical hernia possibly containing fat PLAN: - Awaiting computed tomography scan of the abdomen and pelvis to be completed. - Will order a HIDA scan to further evaluate for any gallbladder disease. Patient has abdominal pain after eating - Dr. Burch will review test results and further recommendations will be given after results are reviewed. Physician Block Machine Operator note has been reviewed by physician. Signing provider agrees with the documented findings, assessment, and plan of care. 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 Cataract surgery, pilonadal cyst, left medial thigh excision debridement Past Anesthesia/Blood Transfusion Reactions: Previous Problems w/ Anesthesia Additional Past Anesthesia/Blood Transfusion Reaction / Comment(s): SOB after last procedure related to COPD per pt. Past Psychological History: No Psychological Hx Reported Smoking Status: Never smoker Past Alcohol Use History: Rare Past Drug Use History: None Reported - Past Family History Brother(s) Family Medical History: Diabetes Mellitus Father Family Medical History: Cancer Medications and Allergies Home Medications Medication Instructions Recorded Confirmed Type Aspirin 81 mg PO DAILY 04/08/18 10/12/19 History Atorvastatin [Lipitor] 40 mg PO DAILY 04/08/18 10/12/19 History Cholecalciferol [Vitamin D3 (25 1,000 unit PO DAILY 04/08/18 10/12/19 History Mcg = 1000 Iu)] Gabapentin [Neurontin] 400 mg PO HS 04/08/18 10/12/19 History Lisinopril [Zestril] 5 mg PO DAILY 04/08/18 10/12/19 History Tiotropium 18 Mcg/Puff [Spiriva] 18 mcg INHALATION DAILY 04/08/18 10/12/19 History clonazePAM 1 mg PO HS 04/08/18 10/12/19 History Cilostazol [Pletal] 100 mg PO BID 10/12/19 10/12/19 History L.acidoph,Paracasei, B.lactis 1 cap PO DAILY 10/12/19 10/12/19 History [Probiotic] atenoloL [Tenormin] 50 mg PO DAILY 10/12/19 10/12/19 History Amoxicillin/Potassium Clav 1 tab PO BID 3 Days #6 tab 10/15/19 Rx [Augmentin 875-125 Tablet] Azithromycin [Zithromax] 250 mg PO DAILY #3 tab 10/15/19 Rx Clopidogrel [Plavix] 75 mg PO DAILY tab 10/15/19 Rx Pantoprazole [Protonix] 40 mg PO AC-BRKFST #30 tablet. 10/15/19 Rx Psyllium Husk 100% [Metamucil 6 gm PO DAILY packet 10/15/19 Rx Packet] predniSONE 10 mg PO DIRECTED #30 tab 10/15/19 Rx Allergies Allergy/AdvReac Type Severity Reaction Status Date / Time Sulfa (Sulfonamide Allergy Unknown Verified 04/10/20 11:32 Antibiotics) Surgical - Exam Vital Signs Temp Pulse Resp BP Pulse Ox 98.8 F 70 20 154/85 99 04/10/20 11:30 04/10/20 11:30 04/10/20 11:30 04/10/20 11:30 04/10/20 11:30 Results - Labs 04/10/20 12:01 04/10/20 12:50 Abnormal Lab Results - Last 24 Hours (Table) 04/10/20 Range/Units 12:50 Sodium 135 L (137-145) mmol/L Creatinine 0.64 L (0.66-1.25) mg/dL Total Protein 5.9 L (6.3-8.2) g/dL Diabetes panel 04/10/20 Range/Units 12:50 Sodium 135 L (137-145) mmol/L Potassium 4.8 (3.5-5.1) mmol/L Chloride 107 (98-107) mmol/L Carbon Dioxide 23 (22-30) mmol/L BUN 16 (9-20) mg/dL Creatinine 0.64 L (0.66-1.25) mg/dL Glucose 91 (74-99) mg/dL Calcium 8.9 (8.4-10.2) mg/dL AST 27 (17-59) U/L ALT 20 (4-49) U/L Alkaline Phosphatase 79 (38-126) U/L Total Protein 5.9 L (6.3-8.2) g/dL Albumin 3.5 (3.5-5.0) g/dL Calcium panel 04/10/20 Range/Units 12:50 Calcium 8.9 (8.4-10.2) mg/dL Albumin 3.5 (3.5-5.0) g/dL Pituitary panel 04/10/20 Range/Units 12:50 Sodium 135 L (137-145) mmol/L Potassium 4.8 (3.5-5.1) mmol/L Chloride 107 (98-107) mmol/L Carbon Dioxide 23 (22-30) mmol/L BUN 16 (9-20) mg/dL Creatinine 0.64 L (0.66-1.25) mg/dL Glucose 91 (74-99) mg/dL Calcium 8.9 (8.4-10.2) mg/dL Adrenal panel 04/10/20 Range/Units 12:50 Sodium 135 L (137-145) mmol/L Potassium 4.8 (3.5-5.1) mmol/L Chloride 107 (98-107) mmol/L Carbon Dioxide 23 (22-30) mmol/L BUN 16 (9-20) mg/dL Creatinine 0.64 L (0.66-1.25) mg/dL Glucose 91 (74-99) mg/dL Calcium 8.9 (8.4-10.2) mg/dL Total Bilirubin 0.8 (0.2-1.3) mg/dL AST 27 (17-59) U/L ALT 20 (4-49) U/L Alkaline Phosphatase 79 (38-126) U/L Total Protein 5.9 L (6.3-8.2) g/dL Albumin 3.5 (3.5-5.0) g/dL
--- NOTE | 2020-04-10 14:19 | CT ---
EXAMINATION TYPE: CT abdomen pelvis w con DATE OF EXAM: 04/10/2020 COMPARISON: CT January 07, 2019 HISTORY: generalized abdominal pain. Chronic hernia and biliary dysfunction. CT DLP: 2023.3 mGycm, Automated Exposure Control for Dose Reduction was Utilized. CONTRAST: CT scan of the abdomen and pelvis is performed without oral but with IV Contrast, patient injected wi th 100 mL of Isovue 300. FINDINGS: LUNG BASES: Mild left basilar linear scarring and/or atelectasis. LIVER/GB: Liver remains low dense consistent with diffuse fatty infiltration. PANCREAS: No significant abnormality is seen. SPLEEN: No significant abnormality is seen. ADRENALS: No significant abnormality is seen. KIDNEYS: Symmetric or medullary uptake and excretion without hydronephrosis seen bilaterally. Simple appearing 2.7 cm thin-walled cyst anteriorly upper to mid pole level left kidney axial image 29. BOWEL: Oral contrast reaches the level of hepatic flexure. No suspicious small or large bowel dilatat ion. Scattered colonic diverticula greatest in the left and sigmoid colon. Mild fat stranding anterio r left mid pelvis axial image 67. Findings consistent with focal area of acute diverticulitis. No pne umoperitoneum. No well-formed fluid collection or abscess noted. PROSTATE/SEMINAL VESICLES: No gross abnormality seen. LYMPH NODES: No greater than 1cm abdominal or pelvic lymph nodes are appreciated. OSSEOUS STRUCTURES: Slight scoliotic curvature with multilevel spurring and disc space narrowing thro ughout the mid to lower lumbar spine. Posterior interpedicular screws L3-L4 level. Slight grade 1 ret rolisthesis L3 on L4. Moderate to severe narrowing and spurring with endplate sclerosis and subchondr al cystic change at this level. Vacuum disc phenomenon along with moderate narrowing and spurring L2- L3 level. Vacuum disc phenomenon with mild disc space narrowing L5-S1 level. OTHER: Moderate sized umbilical hernia containing fat and tiny mesenteric vessels axial image 45 rede monstrated. Moderate to severe calcified plaque of the aorta extends into branch vessels. Small aneur ysm up to 3.4 cm AP diameter axial image 42 redemonstrated. No significant interval change. IMPRESSION: 1. New focus of mild acute uncomplicated diverticulitis in the proximal sigmoid colon centered at the the anterior left mid pelvis on background fairly prominent distal colonic diverticulosis. No well-f ormed fluid collection or drainable abscess. No pneumoperitoneum.
[2020-04-10] MEDS ORDERED: NALOXONE 0.4 MG/ML 1 ML VIAL IV PRN (14:21)
[2020-04-10] MEDS ORDERED: LORazepam 2 MG/ML INJ IV PRN (14:21)
[2020-04-10] MEDS ORDERED: ONDANSETRON 4 MG/2 ML VIAL IVP PRN (14:21)
[2020-04-10] MEDS ORDERED: MORPHINE SULFATE 4 MG/ML SYRINGE IV PRN (14:21)
[2020-04-10] MEDS ORDERED: AMPICILLIN-SULBACTAM 3 GM in SODIUM CHLORIDE 0.9% 100 ML IVPB STA (14:26)
[2020-04-10] MEDS: SODIUM CHLORIDE 0.9% 1,000 ML IV SCH (16:23)
[2020-04-10] MEDS ORDERED: ALBUTEROL NEBULIZED 2.5 MG/3 ML INHALATION PRN (16:47)
[2020-04-10] MEDS: HYDROmorphone 0.5 MG/0.5 ML SYRINGE IVP PRN (17:52)
[2020-04-10] MEDS: GABAPENTIN 100 MG CAP PO SCH (23:28)
[2020-04-10] MEDS: cilostazoL 100 MG TAB PO SCH (23:28)
[2020-04-10] MEDS: clonazePAM 0.5 MG TAB PO SCH (23:28)
--- NOTE | 2020-04-10 23:31 | NM ---
EXAMINATION TYPE: NM hepatobiliary w CCK DATE OF EXAM: 04/10/2020 COMPARISON: NONE HISTORY: TECHNIQUE: After the intravenous administration of 3.6 mCi Tc 99m Mebrofenin hepatobiliary scintigrap hy is performed. Immediate images post injection. FINDINGS: There is satisfactory initial accumulation of tracer by the liver. The gallbladder is visualized wit hin 10 minutes. The small bowel activity is noted within 10 minutes. At one hour CCK was administer ed, patient was injected with 2.2 mcg of Kinevac, and gallbladder ejection fraction is calculated at 99 %, in the normal range. Therefore there is no scintigraphic evidence of cystic or common bile son t obstruction to suggest acute cholecystitis or gallbladder dyskinesia. IMPRESSION: Exam is within normal limits. No focal liver defect. Normal gallbladder ejection fraction of 99%.
[2020-04-11] MEDS: ACETAMINOPHEN TAB 325 MG TAB PO PRN ×2 (02:13→19:57)
[2020-04-11] MEDS: HYDROmorphone 0.5 MG/0.5 ML SYRINGE IVP PRN ×5 (02:18→19:57)
[2020-04-11] MEDS: SODIUM CHLORIDE 0.9% 1,000 ML IV SCH ×2 (04:22→15:57)
[2020-04-11] MEDS: lisinopriL 5 MG TAB PO SCH (07:43)
[2020-04-11] MEDS: cilostazoL 100 MG TAB PO SCH ×2 (07:43→22:09)
[2020-04-11] MEDS: atenoloL 50 MG TAB PO SCH (07:43)
[2020-04-11] MEDS: AMPICILLIN-SULBACTAM 3 GM in SODIUM CHLORIDE 0.9% 100 ML IVPB SCH ×2 (08:52→14:46)
[2020-04-11] MEDS: metroNIDAZOLE-NS PMX 500 MG in SALINE 1 100ML.BAG IVPB SCH ×2 (10:52→15:54)
--- NOTE | 2020-04-11 12:00 | P.PN ---
Subjective Progress Note Date: 04/11/20 CHIEF COMPLAINT: Abdominal pain HISTORY OF PRESENT ILLNESS: Patient still reports some left lower abdominal pain. Pain is slightly better than yesterday. Denies any nausea or vomiting. Denies any bowel movement changes. He is afebrile. Computed tomography scan of the abdomen did show evidence of diverticulitis. HIDA was normal with an ejection fraction of 99% PHYSICAL EXAM: VITAL SIGNS: Reviewed. GENERAL: Well-developed in no acute distress. HEENT: No sclera icterus. Extraocular movements grossly intact. Moist buccal mucosa. Head is atraumatic, normocephalic. ABDOMEN: Soft. Nondistended. Left lower quadrant tenderness. NEUROLOGIC: Alert and oriented. Cranial nerves II through XII grossly intact. ASSESSMENT: 1. Acute diverticulitis 2. Abdominal pain with nausea and vomiting 3. Umbilical hernia 4. Hyperkinetic gallbladder PLAN: -Continue IV Unasyn and IV Flagyl -Advance diet to regular diet -Discussed with patient to avoid any seeds or nuts Physician Warehouse Processor note has been reviewed by physician. Signing provider agrees with the documented findings, assessment, and plan of care. Objective - Vital Signs Vital signs: Vital Signs Temp 97.8 F 04/11/20 07:39 Pulse 72 04/11/20 07:39 Resp 12 04/11/20 07:39 BP 109/69 04/11/20 07:39 Pulse Ox 93 L 04/11/20 07:39 Intake & Output 04/10/20 04/11/20 04/11/20 18:59 06:59 18:59 Weight 111.13 kg Other: Voiding Method Toilet Toilet # Voids 1 1 - Labs CBC & Chem 7: 04/10/20 12:01 04/10/20 12:50 Labs: Abnormal Lab Results - Last 24 Hours (Table) 04/10/20 Range/Units 12:50 Sodium 135 L (137-145) mmol/L Creatinine 0.64 L (0.66-1.25) mg/dL Total Protein 5.9 L (6.3-8.2) g/dL
[2020-04-11] MEDS ORDERED: ATORVASTATIN 40 MG TAB PO SCH (21:00)
--- NOTE | 2020-04-11 21:16 | P.CONS ---
History of Present Illness - Reason for Consult Consult date: 04/11/20 medical eval - Chief Complaint abdominal pain - History of Present Illness Oliver Rodriguez is a 70 yo M with PMH of diverticulitis, COPD, peripheral vascular disease, GERD, rheumatoid arthritis who presented to the ED complaining of abdominal pain for over a month. He complains of lower abdomen pain especially after eating. He reports that he has been having constipation and having to strain to have a bowel movement. He also has an umbilical hernia that is been present for about 3 months. Patient did have nausea and an episode of vomiting. Denies any fever or chills or sweats. On presentation vitals were stable, WBC 8.6k, CT abd/pelvis with mild uncomplicated diverticulitis without abscess. He was started on unasyn and flagyl, today he reports feeling significantly better, denies abdominal pain and tolerating diet. Review of Systems All systems: negative Constitutional: Reports malaise, Denies chills, Denies fever Eyes: denies blurred vision, denies pain Ears, nose, mouth and throat: Denies headache, Denies sore throat Cardiovascular: Denies chest pain, Denies shortness of breath Respiratory: Denies cough Gastrointestinal: Reports abdominal pain, Reports nausea, Reports vomiting, Denies diarrhea Musculoskeletal: Denies myalgias Integumentary: Denies pruritus, Denies rash Neurological: Denies numbness, Denies weakness Psychiatric: Denies anxiety, Denies depression Endocrine: Denies fatigue, Denies weight change Past Medical History Past Medical History: Coronary Artery Disease (CAD), COPD, Deep Vein Thrombosis (DVT), GERD/Reflux, Hyperlipidemia, Hypertension, Osteoarthritis (OA), Pneumonia, Rheumatoid Arthritis (RA), Skin Disorder, Vascular Disorder Additional Past Medical History / Comment(s): Popliteal artery aneurysm, wound left thigh area History of Any Multi-Drug Resistant Organisms: None Reported Past Surgical History: Adenoidectomy, Appendectomy, Back Surgery, Heart Catheterization, Tonsillectomy Additional Past Surgical History / Comment(s): Fem Pop Bypass secondary to popliteal artery aneurysm. Cataract surgery, pilonadal cyst, left medial thigh excision debridement Past Anesthesia/Blood Transfusion Reactions: Previous Problems w/ Anesthesia Additional Past Anesthesia/Blood Transfusion Reaction / Comm: SOB after last procedure related to COPD per pt. Past Psychological History: No Psychological Hx Reported Smoking Status: Former smoker Past Alcohol Use History: Rare Additional Past Alcohol Use History / Comment(s): pt hardly drinks etoh Past Drug Use History: None Reported Additional Drug Use History / Comment(s): Patient was a smoker of one and half packs per day for greater than 40 years and quit 2017. No illicit drug use. Rare alcohol intake. - Past Family History Brother(s) Family Medical History: Diabetes Mellitus Father Family Medical History: Cancer Medications and Allergies Home Medications Medication Instructions Recorded Confirmed Type Atorvastatin [Lipitor] 40 mg PO DAILY 04/08/18 04/10/20 History Lisinopril [Zestril] 5 mg PO DAILY 04/08/18 04/10/20 History Tiotropium 18 Mcg/Puff [Spiriva] 1 cap INHALATION RT-DAILY 04/08/18 04/10/20 History Cilostazol [Pletal] 100 mg PO BID 10/12/19 04/10/20 History atenoloL [Tenormin] 50 mg PO DAILY 10/12/19 04/10/20 History Gabapentin [Neurontin] 200 mg PO HS 04/10/20 04/10/20 History clonazePAM [KlonoPIN] 0.5 mg PO HS 04/10/20 04/10/20 History Allergies Allergy/AdvReac Type Severity Reaction Status Date / Time Sulfa (Sulfonamide Allergy Unknown Verified 04/10/20 15:10 Antibiotics) Physical Exam Vitals: Vital Signs Temp Pulse Resp BP Pulse Ox 04/11/20 14:53 98.1 F 75 12 114/65 93 L 04/11/20 07:39 97.8 F 72 12 109/69 93 L 04/11/20 03:00 97.6 F 73 16 110/69 94 L Intake and Output 04/11/20 04/11/20 04/11/20 06:59 14:59 22:59 Other: Voiding Method Toilet # Voids 1 3 General: well nourished, well developed, NAD. Vitals reviewed Eyes: PERRL, EOMI, conjunctiva normal HENT: normocephalic, mucus membranes moist Neck: supple, no JVD Lungs: normal respiratory effort, no wheezes or rales CV: Regular rate and rhythm, no murmur. Peripheral pulses 2+ Abdomen: soft, nondistended, no organomegaly. LLQ tenderness Lymph: no cervical or axillary LAD Skin: warm and dry. Neuro: A&Ox3, normal mood and affect Results CBC & Chem 7: 04/10/20 12:01 04/10/20 12:50 Labs: Microbiology - Last 24 Hours (Table) 04/10/20 16:20 Blood Culture - Preliminary Blood No Growth after 24 hours Assessment and Plan (1) Diverticulitis Current Visit: Yes Status: Acute Code(s): K57.92 - DVTRCLI OF INTEST, PART UNSP, W/O PERF OR ABSCESS W/O BLEED SNOMED Code(s): 143477679 (2) COPD (chronic obstructive pulmonary disease) Current Visit: No Status: Acute Code(s): J44.9 - CHRONIC OBSTRUCTIVE PULMONARY DISEASE, UNSPECIFIED SNOMED Code(s): 55371643 (3) Hyperlipidemia Current Visit: No Status: Acute Code(s): E78.5 - HYPERLIPIDEMIA, UNSPECIFIED SNOMED Code(s): 08779842 (4) Hypertension Current Visit: No Status: Acute Code(s): I10 - ESSENTIAL (PRIMARY) HYPERTENSION SNOMED Code(s): 97266586 (5) Peripheral vascular disease Current Visit: No Status: Acute Code(s): I73.9 - PERIPHERAL VASCULAR DISEASE, UNSPECIFIED SNOMED Code(s): 805688032 Plan: 1. Acute diverticulitis. Agree with [place] [facility]. Pain control. Low residue diet 2. Peripheral vascular disease. Continue lipitor, pletal 3. HTN. Continue atenolol and lisinopril 4. COPD. Continue albuterol
[2020-04-11] MEDS: GABAPENTIN 100 MG CAP PO SCH (22:08)
[2020-04-11] MEDS: clonazePAM 0.5 MG TAB PO SCH (22:09)
[2020-04-12] MEDS: AMPICILLIN-SULBACTAM 3 GM in SODIUM CHLORIDE 0.9% 100 ML IVPB SCH ×2 (00:38→07:18)
[2020-04-12] MEDS: metroNIDAZOLE-NS PMX 500 MG in SALINE 1 100ML.BAG IVPB SCH ×2 (01:21→07:18)
[2020-04-12] MEDS: HYDROmorphone 0.5 MG/0.5 ML SYRINGE IVP PRN ×2 (03:56→08:02)
[2020-04-12] MEDS: SODIUM CHLORIDE 0.9% 1,000 ML IV SCH (05:17)
[2020-04-12] MEDS: atenoloL 50 MG TAB PO SCH (07:18)
[2020-04-12] MEDS: lisinopriL 5 MG TAB PO SCH (07:18)
[2020-04-12] MEDS: cilostazoL 100 MG TAB PO SCH (07:18)
[2020-04-12 07:21] VITALS: BP 157/88; PULSE 86; RESP 14; TEMP 98.9
[2020-04-12] MEDS ORDERED: DOCUSATE 100 MG CAP PO SCH (09:30)
--- NOTE | 2020-04-12 11:41 | P.DS ---
Providers Date of admission: 04/12/20 09:44 Expected date of discharge: 04/12/20 Attending physician: Juan Luis Burch Consults: 04/10/20 14:24 Consult Physician Stat Consulting Provider: Phil Belcher Reason/Comments: Diverticulitis, abdominal pain Do you want consulting provider notified?: Yes Primary care physician: Alona Navarrete Hospital Course: Discharge diagnosis 1. Acute diverticulitis 2. Abdominal pain with nausea and vomiting 3. Umbilical hernia 4. Hyperkinetic gallbladder Hospital course This is a 70-year-old male who presented to the emergency room for complaints of abdominal pain over the last month. He had a computed tomography scan of the abdomen and pelvis which did reveal mild acute uncomplicated diverticulitis in the proximal sigmoid colon. Patient was started on IV antibiotics in the emergency room. He was maintained on Unasyn and Flagyl. His abdominal pain did show improvement since admission. However he still has some pain in the lower abdomen along the sides bilaterally after eating. Patient does feel eager for discharge. He didn't tolerate regular diet. He is afebrile. He is stable for discharge. He reports having bowel movements. Denies any nausea or vomiting. Patient will continue Augmentin and Flagyl for 10 more days to complete treatment for the diverticulitis. Also recommend Benefiber [id number] daily and Tylenol as needed for pain. Physician Asset Protection Specialist note has been reviewed by physician. Signing provider agrees with the documented findings, assessment, and plan of care. Patient Condition at Discharge: Stable Plan - Discharge Summary Discharge Rx Participant: Yes New Discharge Prescriptions: New Amoxicillin/Potassium Clav [Augmentin 875-125 Tablet] 1 tab PO Q12HR 10 Days #20 tab metroNIDAZOLE [Flagyl] 500 mg PO Q8HR #30 tab Acetaminophen Tab [Tylenol] 650 mg PO Q6HR PRN #30 tab PRN Reason: Pain Continue Tiotropium 18 Mcg/Puff [Spiriva] 1 cap INHALATION RT-DAILY Atorvastatin [Lipitor] 40 mg PO DAILY Lisinopril [Zestril] 5 mg PO DAILY Cilostazol [Pletal] 100 mg PO BID atenoloL [Tenormin] 50 mg PO DAILY clonazePAM [KlonoPIN] 0.5 mg PO HS Gabapentin [Neurontin] 200 mg PO HS Discharge Medication List Atorvastatin [Lipitor] 40 mg PO DAILY 04/08/18 [History] Lisinopril [Zestril] 5 mg PO DAILY 04/08/18 [History] Tiotropium 18 Mcg/Puff [Spiriva] 1 cap INHALATION RT-DAILY 04/08/18 [History] Cilostazol [Pletal] 100 mg PO BID 10/12/19 [History] atenoloL [Tenormin] 50 mg PO DAILY 10/12/19 [History] Gabapentin [Neurontin] 200 mg PO HS 04/10/20 [History] clonazePAM [KlonoPIN] 0.5 mg PO HS 04/10/20 [History] Acetaminophen Tab [Tylenol] 650 mg PO Q6HR PRN #30 tab 04/12/20 [Rx] Amoxicillin/Potassium Clav [Augmentin 875-125 Tablet] 1 tab PO Q12HR 10 Days #20 tab 04/12/20 [Rx] metroNIDAZOLE [Flagyl] 500 mg PO Q8HR #30 tab 04/12/20 [Rx] Follow up Appointment(s)/Referral(s): Alona Navarrete DO [Primary Care Provider] - 1-2 days Activity/Diet/Wound Care/Special Instructions: Discharge diet avoid seeds or nuts Activity as tolerated Recommend patient to use Benefiber [id number] daily Discharge Disposition: HOME SELF-CARE
== END 2020-04-12 12:41 | disposition home or self-care (01) | DRG 392 ==
LOC: EC 11:26 → 1SOBS 14:31 → OBSVTOIN 04-12 09:44
PROVIDERS: ADMIT Surgery; ATTEND Surgery
DX: K57.32 Diverticulitis of large intestine without perforation or abscess without bleeding (principal); K21.9 Gastro-esophageal reflux disease without esophagitis; K59.00 Constipation, unspecified; J44.9 Chronic obstructive pulmonary disease, unspecified; M19.90 Unspecified osteoarthritis, unspecified site; I25.10 Atherosclerotic heart disease of native coronary artery without angina pectoris; I10 Essential (primary) hypertension; E78.5 Hyperlipidemia, unspecified; I73.9 Peripheral vascular disease, unspecified; M06.9 Rheumatoid arthritis, unspecified; K42.9 Umbilical hernia without obstruction or gangrene; K82.8 Other specified diseases of gallbladder; Z79.82 Long term (current) use of aspirin; Z79.02 Long term (current) use of antithrombotics/antiplatelets; Z79.899 Other long term (current) drug therapy; Z88.2 Allergy status to sulfonamides; Z87.891 Personal history of nicotine dependence; Z86.718 Personal history of other venous thrombosis and embolism; Z90.49 Acquired absence of other specified parts of digestive tract; Z90.89 Acquired absence of other organs; Z98.49 Cataract extraction status, unspecified eye; Z83.3 Family history of diabetes mellitus; Z80.9 Family history of malignant neoplasm, unspecified; Z87.01 Personal history of pneumonia (recurrent)
CPT/HCPCS: 36415; 74177; 78227; 80053; 81003; 82150; 83690; 85025; 85610; 85730; 87040; 96361; 96365; 99285

== ENCOUNTER 2020-10-06 07:04 | Day surgery (SDC) | payer MEDICARE ==
[2020-10-04 12:12] VITALS: BMI 34.7
[~2020-10-06 07:04] MED LIST changes: -DEXAMETHASONE SOD PHOSPHATE 10 MG/ML 1 ML VIAL IV ONE; +LACTATED RINGERS 1,000 ML IV SCH; -LIDOCAINE 1% 20 ML VIAL (10MG/ML) FOR IV START INTRADERMA PRN; -ONDANSETRON 4 MG/2 ML VIAL IVP ONE; -SCOPOLAMINE 1.5MG/72HR PATCH TRANSDERM ONE; -ceFAZolin IN SWFI 2 GM/20 ML SYRINGE IVP ONE
[2020-10-06 07:43] VITALS: TEMP 98.4
[2020-10-06 07:54] LABS: Glucose,Whole Blood 97 mg/dL (75-99)
[2020-10-06] MEDS ORDERED: LIDOCAINE 1% INJ 10MG/ML (20 ML MDV) ONE (08:40)
[2020-10-06] MEDS ORDERED: PROPOFOL 10 MG/ML 20 ML VIAL IV ONE (08:40)
--- NOTE | 2020-10-06 08:57 | P.GSHP ---
History of Present Illness H&P Date: 10/06/20 Chief Complaint: Diverticulitis This a 70-year-old male. History of diverticulitis. He presents today for colonoscopy. Past Medical History Past Medical History: Coronary Artery Disease (CAD), COPD, Diabetes Mellitus, Deep Vein Thrombosis (DVT), GERD/Reflux, Hyperlipidemia, Hypertension, Osteoarthritis (OA), Rheumatoid Arthritis (RA), Vascular Disorder Additional Past Medical History / Comment(s): Popliteal artery aneurysm, DIVERTICULITIS History of Any Multi-Drug Resistant Organisms: None Reported Past Surgical History: Adenoidectomy, Appendectomy, Back Surgery, Heart Catheterization, Tonsillectomy Additional Past Surgical History / Comment(s): Fem Pop Bypass secondary to popliteal artery aneurysm. Cataract surgery, pilonadal cyst, left medial thigh excision debridement, COLONOSCOPY Past Anesthesia/Blood Transfusion Reactions: Previous Problems w/ Anesthesia Additional Past Anesthesia/Blood Transfusion Reaction / Comment(s): SOB after last procedure related to COPD per pt. Smoking Status: Former smoker - Past Family History Brother(s) Family Medical History: Diabetes Mellitus Father Family Medical History: Cancer Medications and Allergies Home Medications Medication Instructions Recorded Confirmed Type Atorvastatin [Lipitor] 40 mg PO DAILY 04/08/18 10/06/20 History Lisinopril [Zestril] 10 mg PO DAILY 04/08/18 10/06/20 History Tiotropium 18 Mcg/Puff [Spiriva] 1 cap INHALATION RT-DAILY 04/08/18 10/06/20 History Cilostazol [Pletal] 100 mg PO BID 10/12/19 10/06/20 History atenoloL [Tenormin] 50 mg PO DAILY 10/12/19 10/06/20 History Gabapentin [Neurontin] 200 mg PO HS 04/10/20 10/06/20 History clonazePAM [KlonoPIN] 0.5 mg PO HS 04/10/20 10/06/20 History Acetaminophen Tab [Tylenol] 650 mg PO Q6HR PRN #30 tab 04/12/20 10/06/20 Rx Aspirin [Adult Low Dose Aspirin EC] 81 mg PO DAILY 10/04/20 10/06/20 History Cholecalciferol [Vitamin D3 (10 10 mcg PO DAILY 10/04/20 10/06/20 History Mcg = 400 Iu)] Clopidogrel [Plavix] 75 mg PO DAILY 10/04/20 10/06/20 History L.acidoph,Paracasei, B.lactis 1 each PO DAILY 10/04/20 10/06/20 History [Probiotic] metFORMIN HCL [Glucophage] 500 mg PO DAILY 10/04/20 10/06/20 History Allergies Allergy/AdvReac Type Severity Reaction Status Date / Time Sulfa (Sulfonamide Allergy Unknown Verified 10/06/20 07:44 Antibiotics) Surgical - Exam Vital Signs Temp Pulse Resp BP Pulse Ox 98.4 F 103 H 16 149/85 94 L 10/06/20 07:38 10/06/20 07:38 10/06/20 07:38 10/06/20 07:38 10/06/20 07:38 - General well developed, well nourished, no distress - Eyes PERRL - ENT normal pinna - Neck no masses - Respiratory normal expansion - Cardiovascular Rhythm: regular - Abdomen Abdomen: soft, non tender Assessment and Plan Assessment: History of diverticula is. We'll perform colonoscopy.
--- NOTE | 2020-10-06 09:00 | P.OP ---
Date of Procedure: 10/06/20 Preoperative Diagnosis: Diverticulitis Postoperative Diagnosis: Diverticulosis Procedure(s) Performed: Colonoscopy Anesthesia: MAC Surgeon: Juan Luis Burch Pathology: none sent Condition: stable Disposition: PACU Description of Procedure: The patient's placed on the endoscopy table lateral position. He received IV sedation. Digital rectal exam performed which revealed a few external hemorrhoids. The flexible colonoscope was then placed patient anus passed throughout the entire colon. The ileocecal valve was visually. The cecum, ascending transverse colon appeared normal. In the descending; there is moderate to severe diverticular changes. Scope summer back the rectum this appeared normal. Scope withdrawn for patient. There is no evidence of any active diverticula is.
[2020-10-06 09:21] VITALS: RESP 16
[2020-10-06 09:43] VITALS: BP 135/88; PULSE 65
== END 2020-10-06 10:15 | disposition home or self-care (01) ==
LOC: ORWHC2ENDO 07:04
PROVIDERS: ATTEND Surgery
DX: K57.30 Diverticulosis of large intestine without perforation or abscess without bleeding (principal); K64.4 Residual hemorrhoidal skin tags; E11.9 Type 2 diabetes mellitus without complications; I10 Essential (primary) hypertension; I25.10 Atherosclerotic heart disease of native coronary artery without angina pectoris; E78.5 Hyperlipidemia, unspecified; J44.9 Chronic obstructive pulmonary disease, unspecified; K21.9 Gastro-esophageal reflux disease without esophagitis; M19.90 Unspecified osteoarthritis, unspecified site; M06.9 Rheumatoid arthritis, unspecified; Z79.84 Long term (current) use of oral hypoglycemic drugs; Z79.02 Long term (current) use of antithrombotics/antiplatelets; Z79.82 Long term (current) use of aspirin; Z79.899 Other long term (current) drug therapy; Z88.2 Allergy status to sulfonamides; Z90.49 Acquired absence of other specified parts of digestive tract; Z90.89 Acquired absence of other organs; Z98.49 Cataract extraction status, unspecified eye; Z86.718 Personal history of other venous thrombosis and embolism; Z86.79 Personal history of other diseases of the circulatory system; Z87.891 Personal history of nicotine dependence; Z83.3 Family history of diabetes mellitus; Z80.9 Family history of malignant neoplasm, unspecified; Z98.890 Other specified postprocedural states
CPT/HCPCS: 45378; J2001; J2704

== ENCOUNTER 2020-10-23 07:15 | Day surgery (SDC) | payer MEDICARE ==
[2020-10-18 12:04] VITALS: BMI 34.7
[~2020-10-23 07:15] MED LIST changes: +ACETAMINOPHEN TAB 500 MG TAB PO PRN; +DEXAMETHASONE SOD PHOSPHATE 4 MG/ML 1 ML VIAL IV ONE; +HEPARIN SODIUM,PORCINE 5,000 UNIT/ML 1 ML VIAL SQ PRN; +HYDROmorphone 0.5 MG/0.5 ML SYRINGE IVP PRN; +LIDOCAINE 1% (10MG/ML) FOR IV START INTRADERMA PRN; +ONDANSETRON 4 MG/2 ML VIAL IVP ONE
[2020-10-23 07:47] LABS: Glucose,Whole Blood 86 mg/dL (75-99)
[2020-10-23] MEDS ORDERED: SUCCINYLCHOLINE CHLORIDE 100 MG/5 ML SYR IV ONE (08:52)
[2020-10-23] MEDS ORDERED: ROCURONIUM 10 MG/ML (5 ML VIAL) IV ONE (08:52)
[2020-10-23] MEDS ORDERED: NEOSTIGMINE 1 MG/ML 10 ML VIAL ONE (08:52)
[2020-10-23] MEDS ORDERED: PROPOFOL 10 MG/ML 20 ML VIAL IV ONE (08:52)
[2020-10-23] MEDS ORDERED: MIDAZOLAM 2 MG/2 ML VIAL ONE (08:52)
[2020-10-23] MEDS ORDERED: fentaNYL (PF) 50 MCG/ML 2 ML AMP ONE (08:52)
[2020-10-23] MEDS ORDERED: GLYCOPYRROLATE 0.2 MG/ML 2 ML VIAL ONE (08:52)
[2020-10-23] MEDS ORDERED: LIDOCAINE 1% INJ 10MG/ML (20 ML MDV) ONE (08:52)
[2020-10-23] MEDS ORDERED: KETOROLAC 15 MG/ML 1 ML VIAL ONE (08:52)
[2020-10-23] MEDS ORDERED: BUPIVACAINE (PF) 0.25% 30 ML VIAL SQ ONE (09:15)
--- NOTE | 2020-10-23 09:40 | P.GSHP ---
History of Present Illness H&P Date: 10/23/20 Chief Complaint: Right upper quadrant pain Is a 70-year-old male who has complaints of right quadrant pain. His recent HIDA scan shows a hyperkinetic gallbladder consistent with biliary a hyper kinesis and chronic cholecystitis. His ejection fraction was 99%. Past Medical History Past Medical History: Coronary Artery Disease (CAD), COPD, Diabetes Mellitus, Deep Vein Thrombosis (DVT), GERD/Reflux, Hyperlipidemia, Hypertension, Ost eoarthritis (OA), Rheumatoid Arthritis (RA), Vascular Disorder Additional Past Medical History / Comment(s): Popliteal artery aneurysm, DIVERTICULITIS History of Any Multi-Drug Resistant Organisms: None Reported Past Surgical History: Adenoidectomy, Appendectomy, Back Surgery, Heart Catheterization, Tonsillectomy Additional Past Surgical History / Comment(s): Fem Pop Bypass secondary to popliteal artery aneurysm. Cataract surgery, pilonadal cyst, left medial thigh excision debridement, COLONOSCOPY Past Anesthesia/Blood Transfusion Reactions: Previous Problems w/ Anesthesia Additional Past Anesthesia/Blood Transfusion Reaction / Comment(s): SOB after last procedure related to COPD per pt. Additional Past Alcohol Use History / Comment(s): QUIT SMOKING 2017 - Past Family History Brother(s) Family Medical History: Diabetes Mellitus Father Family Medical History: Cancer Medications and Allergies Home Medications Medication Instructions Recorded Confirmed Type Atorvastatin [Lipitor] 40 mg PO DAILY 04/08/18 10/23/20 History Lisinopril [Zestril] 10 mg PO DAILY 04/08/18 10/23/20 History Tiotropium 18 Mcg/Puff [Spiriva] 1 cap INHALATION RT-DAILY 04/08/18 10/23/20 History Cilostazol [Pletal] 100 mg PO BID 10/12/19 10/23/20 History atenoloL [Tenormin] 50 mg PO DAILY 10/12/19 10/23/20 History Gabapentin [Neurontin] 200 mg PO HS 04/10/20 10/23/20 History clonazePAM [KlonoPIN] 0.5 mg PO HS 04/10/20 10/23/20 History Acetaminophen Tab [Tylenol] 650 mg PO Q6HR PRN #30 tab 04/12/20 10/23/20 Rx Aspirin [Adult Low Dose Aspirin EC] 81 mg PO DAILY 10/04/20 10/23/20 History Cholecalciferol [Vitamin D3 (10 10 mcg PO DAILY 10/04/20 10/23/20 History Mcg = 400 Iu)] L.acidoph,Paracasei, B.lactis 1 each PO DAILY 10/04/20 10/23/20 History [Probiotic] metFORMIN HCL [Glucophage] 500 mg PO DAILY 10/04/20 10/23/20 History Clopidogrel [Plavix] 75 mg PO DAILY 10/18/20 10/23/20 History Allergies Allergy/AdvReac Type Severity Reaction Status Date / Time Sulfa (Sulfonamide Allergy Unknown Verified 10/23/20 07:26 Antibiotics) Surgical - Exam Vital Signs Temp Pulse Resp BP Pulse Ox 97.4 F L 69 18 160/92 98 10/23/20 07:32 10/23/20 07:32 10/23/20 07:32 10/23/20 07:32 10/23/20 07:32 - General well developed, well nourished, no distress - Eyes PERRL - ENT normal pinna - Neck no masses - Respiratory normal expansion - Cardiovascular Rhythm: regular - Abdomen Abdomen: soft, non tender Assessment and Plan Assessment: Chronic cholecystitis Abnormal HIDA scan We'll perform laparoscopic cholecystectomy
--- NOTE | 2020-10-23 09:41 | P.OP ---
Date of Procedure: 10/23/20 Preoperative Diagnosis: Cholecystitis Postoperative Diagnosis: Cholecystitis Procedure(s) Performed: Laparoscopic cholecystectomy Anesthesia: WESLY Surgeon: Juan Luis Burch Estimated Blood Loss (ml): 5 Pathology: other (Gallbladder) Condition: stable Disposition: PACU Description of Procedure: The patient was placed on the operating table. The patient received a general endotracheal tube anesthesia. The patients abdomen was prepped and draped in the usual sterile fashion. Through an infraumbilical stab incision, the fascia of the anterior abdominal wall was grasped with a pair of Kochers and then the Veress needle was placed in the peritoneal cavity. Position of the Veress needle was confirmed with positive drop test. The abdomen was then insufflated. After adequate insufflation, the 10 mm trocar was placed in the peritoneal cavity. Following this the laparoscope was placed in the peritoneal cavity. The patient was placed in the head-up, right side up position and then a 5 mm trocar was placed in the right lateral and right subcostal position under direct visualization. A 8 mm trocar was placed in the epigastric position. The gallbladder was grasped in the fundus and infundibulum. Traction on the gallbladder was placed in the lateral and the cephalad positions. The triangle of Calot was visualized.. The cystic duct was bluntly dissected until the union of the cystic duct and common bile duct was seen. A critical view of safety was achieved. The cystic duct was then divided and sealed with the Harmonic scissors. A PDS Endoloop was then placed throughout the cystic duct stump. The cystic artery divided and sealed with the Harmonic scissors. The gallbladder was then removed from the liver bed using Harmonic scissors. The gallbladder was then extracted through the epigastric port site. Operative field was checked for any bleeding spots and Harmonic scissors was used to coagulate the liver bed. The abdomen was irrigated. The trocars were removed. The skin was closed using interrupted 3-0 Vicryl suture. Dermabond dressing were applied. The patient tolerated the procedure well.
[2020-10-23 09:52] VITALS: RESP 16; TEMP 97
[2020-10-23 09:58] LABS: Glucose,Whole Blood 108 mg/dL (75-99)
[2020-10-23 11:43] VITALS: BP 137/78; PULSE 53
== END 2020-10-23 12:05 | disposition home or self-care (01) ==
LOC: OR 07:15
PROVIDERS: ATTEND Surgery
DX: K81.1 Chronic cholecystitis (principal); I25.10 Atherosclerotic heart disease of native coronary artery without angina pectoris; J44.9 Chronic obstructive pulmonary disease, unspecified; E11.9 Type 2 diabetes mellitus without complications; K21.9 Gastro-esophageal reflux disease without esophagitis; E78.5 Hyperlipidemia, unspecified; I10 Essential (primary) hypertension; M19.90 Unspecified osteoarthritis, unspecified site; M06.9 Rheumatoid arthritis, unspecified; K57.90 Diverticulosis of intestine, part unspecified, without perforation or abscess without bleeding; I73.9 Peripheral vascular disease, unspecified; Z86.718 Personal history of other venous thrombosis and embolism; Z86.79 Personal history of other diseases of the circulatory system; Z90.89 Acquired absence of other organs; Z90.49 Acquired absence of other specified parts of digestive tract; Z98.890 Other specified postprocedural states; Z95.820 Peripheral vascular angioplasty status with implants and grafts; Z98.49 Cataract extraction status, unspecified eye; Z91.89 Other specified personal risk factors, not elsewhere classified; Z87.891 Personal history of nicotine dependence; Z79.899 Other long term (current) drug therapy; Z79.82 Long term (current) use of aspirin; Z79.84 Long term (current) use of oral hypoglycemic drugs; Z79.02 Long term (current) use of antithrombotics/antiplatelets; Z88.2 Allergy status to sulfonamides; Z83.3 Family history of diabetes mellitus; Z80.9 Family history of malignant neoplasm, unspecified
CPT/HCPCS: 88304; 47562; J2250; J1644; J1100; J2710; J0690; J2405; J2001; J3010; J1885; J0330; J2704

== ENCOUNTER → 2020-11-17 | Outpatient (CLI) | payer MEDICARE ==
[2020-11-17 09:44] LABS: African American GFR (CKD) >90 (>60 ml/min/1.73 sqM); Blood Urea Nitrogen 13 mg/dL (9-20); Non-African American GFR(CKD) 88 (>60 ml/min/1.73 sqM)
--- NOTE | 2020-11-19 13:18 | CT ---
EXAMINATION TYPE: CT abdomen pelvis w con DATE OF EXAM: 11/17/2020 COMPARISON: 04/10/2020 INDICATION: Diverticulitis DLP: 2178.6 mGycm, Automated exposure control for dose reduction was used. CONTRAST: 100 mL of Isovue 300. Study performed with Oral Contrast TECHNIQUE: Axial images were obtained from above the diaphragm to the pubic rami in the axial plane a t 5 mm thick sections. Reconstructed images are reviewed on the computer in the coronal plane. FINDINGS: Limited CT sections are obtained the lung bases. The lung bases are clear. CT ABDOMEN: Liver: Mild fatty infiltration Spleen: Normal Pancreas: Normal Adrenal glands: The adrenal glands are normal. Gallbladder: Normal Kidneys: No masses are evident. No hydronephrosis is present. There is a 2.6 cm cyst in the anterol ateral left kidney. Delayed images were obtained through the kidneys, which remain unremarkable. Aorta: There is a 4.3 cm AP dimension midabdominal aortic aneurysm. This terminates at the bifurcatio n begins below the level the renal arteries. Vascular calcifications through the aorta. Inferior vena cava: Normal. CT PELVIS: Loops of bowel within the abdomen and pelvis are normal. Diverticular changes are within the sigmoid colon. No suspicious changes for acute diverticulitis are evident. No adjacent inflammatory changes a re evident. There are loops of bowel which are incompletely distended or lack oral contrast limiti ng their evaluation. Appendix: Normal as visualized. Urinary bladder: Normal. Genitourinary structures: Mild prostate hypertrophy with calcification is present. Osseous structures: No suspicious lytic or sclerotic lesions. IMPRESSIONS: 1. Diverticulosis without evidence of acute diverticulitis. 2. Abdominal aortic aneurysm mid abdominal aorta with an AP diameter of 4.3 cm is increased in size f rom 3.4 cm previous.
== END ==
LOC: RADCTMAIN 08:40
PROVIDERS: ATTEND Surgery
DX: K57.90 Diverticulosis of intestine, part unspecified, without perforation or abscess without bleeding (principal); I71.4 Abdominal aortic aneurysm, without rupture
CPT/HCPCS: 82565; 84520; 74177; 36415; Q9967

== ENCOUNTER → 2020-12-01 | Outpatient (CLI) | payer MEDICARE ==
[2020-12-01 13:07] LABS: HCT 45.4 % (39.0-53.0); HGB 15.4 gm/dL (13.0-17.5); MCH 30.9 pg (25.0-35.0); MCV 91.1 fL (80.0-100.0); Mean Platelet Volume 7.9; Platelet Count 197 k/uL (150-450); RBC 4.99 m/uL (4.30-5.90); RDW 14.1 % (11.5-15.5); WBC 8.4 k/uL (3.8-10.6)
== END | disposition home or self-care (01) ==
LOC: LABPAT 11:35
PROVIDERS: ATTEND Surgery
DX: Z01.818 Encounter for other preprocedural examination (principal); K46.9 Unspecified abdominal hernia without obstruction or gangrene
CPT/HCPCS: 36415; 85027; 93005

== ENCOUNTER 2020-12-06 06:11 | Day surgery (SDC) | payer MEDICARE ==
[2020-12-01 09:16] VITALS: BMI 34.4
[~2020-12-06 06:11] MED LIST changes: -HEPARIN SODIUM,PORCINE 5,000 UNIT/ML 1 ML VIAL SQ PRN; +HEPARIN SODIUM,PORCINE/PF 5,000 UNIT/0.5 ML SYRINGE SQ PRN; -HYDROmorphone 0.5 MG/0.5 ML SYRINGE IVP PRN; -ONDANSETRON 4 MG/2 ML VIAL IVP ONE
[2020-12-06 07:11] LABS: Glucose,Whole Blood 90 mg/dL (75-99)
[2020-12-06] MEDS: ONDANSETRON 4 MG/2 ML VIAL IVP ONE ×2 (07:20→09:35)
[2020-12-06] MEDS ORDERED: LIDOCAINE 1% INJ 10MG/ML (20 ML MDV) ONE ×2 (07:41→08:04)
[2020-12-06] MEDS ORDERED: MIDAZOLAM 2 MG/2 ML VIAL IV ONE (07:44)
[2020-12-06] MEDS ORDERED: ROCURONIUM 10 MG/ML (5 ML VIAL) IV ONE (08:04)
[2020-12-06] MEDS ORDERED: fentaNYL (PF) 50 MCG/ML 2 ML AMP ONE (08:04)
[2020-12-06] MEDS ORDERED: NEOSTIGMINE 1 MG/ML 10 ML VIAL ONE (08:04)
[2020-12-06] MEDS ORDERED: GLYCOPYRROLATE 0.2 MG/ML 2 ML VIAL ONE (08:04)
[2020-12-06] MEDS ORDERED: ePHEDrine SULFATE/0.9% NACL/PF 50 MG/5 ML SYRINGE IV ONE (08:04)
[2020-12-06] MEDS ORDERED: ROPIVACAINE 5 MG/ML 30 ML VIAL ONE (08:04)
[2020-12-06] MEDS ORDERED: SUCCINYLCHOLINE CHLORIDE 100 MG/5 ML SYR IV ONE (08:04)
[2020-12-06] MEDS ORDERED: KETAMINE 10 MG/ML 20 ML VIAL ONE (08:04)
[2020-12-06] MEDS ORDERED: PROPOFOL 10 MG/ML 20 ML VIAL IV ONE (08:04)
[2020-12-06] MEDS ORDERED: BUPIVACAINE (PF) 0.25% 30 ML VIAL SQ ONE (08:39)
[2020-12-06] MEDS ORDERED: LACTATED RINGERS 1,000 ML IV ONE (09:12)
--- NOTE | 2020-12-06 09:18 | P.GSHP ---
History of Present Illness H&P Date: 12/06/20 Chief Complaint: Incarcerated umbilical hernia This is a 70-year-old male who presents today for laparoscopic robotic-assisted repair of incarcerated umbilical hernia. Patient had complaints of a tender mass at his umbilicus. Patient is a 3 cm incarcerated umbilical hernia. Past Medical History Past Medical History: Coronary Artery Disease (CAD), COPD, Diabetes Mellitus, Deep Vein Thrombosis (DVT), GERD/Reflux, Hyperlipidemia, Hypertension, Osteoarthritis (OA), Rheumatoid Arthritis (RA), Vascular Disorder Additional Past Medical History / Comment(s): Popliteal artery aneurysm, DIVERTICULITIS History of Any Multi-Drug Resistant Organisms: None Reported Past Surgical History: Adenoidectomy, Appendectomy, Back Surgery, Heart Catheterization, Tonsillectomy Additional Past Surgical History / Comment(s): Fem Pop Bypass secondary to popliteal artery aneurysm. Cataract surgery, pilonadal cyst, left medial thigh excision debridement, COLONOSCOPY Past Anesthesia/Blood Transfusion Reactions: Previous Problems w/ Anesthesia Additional Past Anesthesia/Blood Transfusion Reaction / Comment(s): SOB after last procedure related to COPD per pt. Smoking Status: Former smoker - Past Family History Brother(s) Family Medical History: Diabetes Mellitus Father Family Medical History: Cancer Medications and Allergies Home Medications Medication Instructions Recorded Confirmed Type Atorvastatin [Lipitor] 40 mg PO DAILY 04/08/18 12/01/20 History Lisinopril [Zestril] 10 mg PO DAILY 04/08/18 12/01/20 History Tiotropium 18 Mcg/Puff [Spiriva] 1 cap INHALATION RT-DAILY 04/08/18 12/01/20 History Cilostazol [Pletal] 100 mg PO BID 10/12/19 12/01/20 History atenoloL [Tenormin] 50 mg PO DAILY 10/12/19 12/01/20 History Gabapentin [Neurontin] 200 mg PO HS 04/10/20 12/01/20 History clonazePAM [KlonoPIN] 0.5 mg PO HS 04/10/20 12/01/20 History Acetaminophen Tab [Tylenol] 650 mg PO Q6HR PRN #30 tab 04/12/20 12/01/20 Rx Aspirin [Adult Low Dose Aspirin EC] 81 mg PO DAILY 10/04/20 12/01/20 History Cholecalciferol [Vitamin D3 (10 10 mcg PO DAILY 10/04/20 12/01/20 History Mcg = 400 Iu)] L.acidoph,Paracasei, B.lactis 1 each PO DAILY 10/04/20 12/01/20 History [Probiotic] metFORMIN HCL [Glucophage] 500 mg PO DAILY 10/04/20 12/01/20 History Clopidogrel [Plavix] 75 mg PO DAILY 10/18/20 12/01/20 History Ibuprofen [Motrin] 600 mg PO Q6HR PRN #40 tab 10/23/20 12/01/20 Rx Allergies Allergy/AdvReac Type Severity Reaction Status Date / Time Sulfa (Sulfonamide Allergy Unknown Verified 12/01/20 09:01 Antibiotics) Surgical - Exam Vital Signs Temp Pulse Resp BP Pulse Ox 97.2 F L 58 L 16 147/82 98 12/06/20 06:57 12/06/20 06:57 12/06/20 06:57 12/06/20 06:57 12/06/20 06:57 - General well developed, well nourished, no distress - Eyes PERRL - ENT normal pinna - Neck no masses - Respiratory normal expansion - Cardiovascular Rhythm: regular - Abdomen Abdomen: soft, non tender Hernia: umbilical (3 cm incarcerated) Assessment and Plan Assessment: Incarcerated buckle hernia. We'll perform laparoscopic robotic-assisted repair.
--- NOTE | 2020-12-06 09:27 | P.OP ---
Date of Procedure: 12/06/20 Preoperative Diagnosis: Incarcerated umbilical hernia Postoperative Diagnosis: Incarcerated umbilical hernia Procedure(s) Performed: Laparoscopic robotic system repair of incarcerated umbilical hernia Anesthesia: WESLY Surgeon: Juan Luis Burch Estimated Blood Loss (ml): 10 Pathology: other (Omentum) Condition: stable Disposition: PACU Description of Procedure: The patient was placed on the operating table in the supine position. He received general anesthesia. His abdomen was prepped and draped usual fashion. Using a 5 mm optical trocar under direct visualization the peritoneal cavity was entered in the left upper quadrant. The abdomen was then insufflated. The l aparoscope was placed back into the perineal cavity. Next a 8 mm robotic trocar was placed in the left lower quadrant and a 12 mm robotic trocar was placed in the left lateral position. The original 5 mm trocar was exchanged for a 8 mm robotic trocar. The patient's placed in the left side up position. And the patient was undocked the robot. The umbilical hernia was visualized. Using hook cautery the peritoneum over the umbilical hernia was excised. The incarcerated omentum was dissected free and sent to pathology. The fascial opening was repaired using 0V LOC suture. Next a piece of 11 cm round ventral light ST mesh was placed into the. Cavity and secured with 2 OV lock suture. The patient was undocked the robot. The needles were retrieved. The fascia of the 12 mm trocar site was closed with 0 Ethibond suture. Skin was closed interrupted 3-0 Monocryl suture. Dermabond dressings was applied. Patient top procedure well and was sent to recovery room stable condition.
[2020-12-06] MEDS: HYDROmorphone 0.5 MG/0.5 ML SYRINGE IVP ONE ×4 (09:36→09:56)
[2020-12-06 09:39] VITALS: TEMP 97.8
[2020-12-06 09:47] LABS: Glucose,Whole Blood 99 mg/dL (75-99)
[2020-12-06] MEDS ORDERED: KETOROLAC 15 MG/ML 1 ML VIAL IVP ONE (10:24)
[2020-12-06 10:39] VITALS: PULSE 65; RESP 18
[2020-12-06 10:56] VITALS: BP 149/83
--- NOTE | 2020-12-07 07:23 | P.ANPRN ---
Procedure Note - Anesthesia - Nerve Block Performed Bilateral Erector Spinae Single Time Out Performed: Yes Date of Procedure: 12/06/20 Procedure Start Time: 07:43 Procedure Stop Time: 07:53 Location of Patient: PreOp Indication: Acute Post-Operative Pain, Requested by Surgeon Sedation Type: Sedate with meaningful contact maintained Preparation: Sterile Prep Position: Prone Needle Types: Pajunk Needle Gauge: 21 Ultrasound used to visualize needle placement: Yes Ultrasound used to observe medication spread: Yes Blood Aspirated: No Pain Paresthesia on Injection Noted: No Resistance on Injection: Normal Image Stored and Saved: Yes Events: Uneventful and Well Tolerated (ropi .5% 15cc plus xylo 1% 15cc at t7 bilaterally)
== END 2020-12-06 11:42 | disposition home or self-care (01) ==
LOC: OR 06:11
PROVIDERS: ATTEND Surgery
DX: K42.0 Umbilical hernia with obstruction, without gangrene (principal); I25.10 Atherosclerotic heart disease of native coronary artery without angina pectoris; J44.9 Chronic obstructive pulmonary disease, unspecified; E11.9 Type 2 diabetes mellitus without complications; K21.9 Gastro-esophageal reflux disease without esophagitis; E78.5 Hyperlipidemia, unspecified; I10 Essential (primary) hypertension; M19.90 Unspecified osteoarthritis, unspecified site; M06.9 Rheumatoid arthritis, unspecified; I72.4 Aneurysm of artery of lower extremity; K57.90 Diverticulosis of intestine, part unspecified, without perforation or abscess without bleeding; I73.9 Peripheral vascular disease, unspecified; Z86.718 Personal history of other venous thrombosis and embolism; Z90.89 Acquired absence of other organs; Z90.49 Acquired absence of other specified parts of digestive tract; Z98.890 Other specified postprocedural states; Z95.820 Peripheral vascular angioplasty status with implants and grafts; Z98.49 Cataract extraction status, unspecified eye; Z91.89 Other specified personal risk factors, not elsewhere classified; Z87.891 Personal history of nicotine dependence; Z79.899 Other long term (current) drug therapy; Z79.82 Long term (current) use of aspirin; Z79.84 Long term (current) use of oral hypoglycemic drugs; Z79.02 Long term (current) use of antithrombotics/antiplatelets; Z79.1 Long term (current) use of non-steroidal anti-inflammatories (NSAID); Z88.2 Allergy status to sulfonamides; Z83.3 Family history of diabetes mellitus; Z80.9 Family history of malignant neoplasm, unspecified
CPT/HCPCS: 64999; 76942; 88305; 49653; C1781; J2250; J1100; J2710; J0690; J2405; J2001; J3010; J2795; J1885; J0330; J2704; J1170; J1644

== ENCOUNTER → 2021-11-06 | Outpatient (CLI) | payer MEDICARE ==
[2021-11-06 13:27] LABS: African American GFR (CKD) >90 (>60 ml/min/1.73 sqM); Blood Urea Nitrogen 13 mg/dL (9-20); Non-African American GFR(CKD) 89 (>60 ml/min/1.73 sqM)
--- NOTE | 2021-11-06 15:15 | CT ---
EXAMINATION TYPE: CT abdomen pelvis w con DATE OF EXAM: 11/06/2021 COMPARISON: CT dated 11/17/2020 HISTORY: Abdominal pain, constipation, history of diverticulitis. CT DLP: 1667 mGycm Automated exposure control for dose reduction was used. TECHNIQUE: Helical acquisition of images was performed from the lung bases through the pelvis. CONTRAST: Performed with Oral Contrast and with IV Contrast, patient injected with 100 mL of Isovue M300. FINDINGS: LUNG BASES: No significant abnormality is appreciated. LIVER/GB: No definite hepatic focal lesion. Previous cholecystectomy. PANCREAS: No significant abnormality is seen. SPLEEN: No significant abnormality is seen. ADRENALS: No significant abnormality is seen. KIDNEYS: Few bilateral renal cyst without suspicious feature, otherwise unremarkable kidneys. FREE AIR: No free air is visualized. RETROPERITONEAL ADENOPATHY: None visualized REPRODUCTIVE ORGANS: No significant abnormality is seen URINARY BLADDER: No significant abnormality is seen. PELVIC ADENOPATHY: None visualized. OSSEOUS STRUCTURES: Marked degenerative changes at L3-4 level with previous bilateral L3-4 facet fix ation. Degenerated L4-5 and L5-S1 discs. No aggressive bone lesion. BOWEL: Unremarkable stomach. Second part of the duodenum diverticulum, otherwise unremarkable duoden um and small bowel. Colonic diverticulosis most evident involving the sigmoid colon and descending co sharron with wall thickening of the sigmoid colon, small underlying colonic lesion cannot be excluded, pl ease correlate with coloscopy results. No evidence of acute diverticulitis. Moderate fecal loading of the colon suggestive of constipation. Normal appendix. OTHER: Stenosis of the origin the celiac trunk yet patent distally. Extensive arterial atheroscleroti c calcifications. Infrarenal abdominal aortic aneurysm measuring up to 4.1 cm. Post interventional ch anges are seen in the left inguinal region. No sizable ascites. Suspected right fat-containing inguin al hernia. IMPRESSION: COLONIC DIVERTICULOSIS MOST EVIDENT INVOLVING THE SIGMOID COLON AND DESCENDING COLON WITH COLONIC WAL L THICKENING DESCRIBED ABOVE. RECOMMEND CORRELATION WITH COLOSCOPY RESULTS. FECAL LOADING OF THE COLON SUGGESTIVE OF CONSTIPATION. NO EVIDENCE OF ACUTE DIVERTICULITIS. PERSISTENT INFRARENAL ABDOMINAL AORTIC ANEURYSM DESCRIBED ABOVE. OTHER INCIDENTAL FINDINGS DESC RIBED ABOVE.
== END | disposition home or self-care (01) ==
LOC: RADCTMAIN 12:39
PROVIDERS: ATTEND Surgery
DX: K57.30 Diverticulosis of large intestine without perforation or abscess without bleeding (principal); K63.89 Other specified diseases of intestine; I71.4 Abdominal aortic aneurysm, without rupture
CPT/HCPCS: 82565; 84520; 74177; 36415; Q9967 ×2

== ENCOUNTER 2023-07-23 17:19 | Emergency (ER) | payer MEDICARE ==
[2023-07-23 17:52] VITALS: TEMP 97.9
[2023-07-23] MEDS ORDERED: ALBUTEROL NEBULIZED 2.5 MG/3 ML INHALATION STA (18:02)
[2023-07-23] MEDS ORDERED: IPRATROPIUM-ALBUTEROL 3 ML NEB INHALATION STA (18:02)
[2023-07-23] MEDS ORDERED: methylPREDNISolone SOD SUCCI 125 MG/2 ML VIAL IV STA (18:02)
--- NOTE | 2023-07-23 18:04 | ED ---
General Adult HPI - General Chief complaint: Shortness of Breath Stated complaint: SOB Time Seen by Provider: 07/23/23 17:51 Source: patient, family, RN notes reviewed, old records reviewed Mode of arrival: wheelchair Limitations: no limitations - History of Present Illness Initial comments: 73-year-old male presenting for evaluation of increased dyspnea. History of COPD. Patient states that his breathing has been worsening over several weeks but significantly worse today. No fever. No central chest pain. He reports some mild chest tightness associated with his dyspnea. He is a former smoker quit many years ago. No lower extremity pain or swelling. - Related Data Home Medications Medication Instructions Recorded Confirmed Atorvastatin [Lipitor] 40 mg PO DAILY 04/08/18 12/01/20 Tiotropium 18 Mcg/Puff [Spiriva] 1 cap INHALATION RT-DAILY 04/08/18 12/01/20 lisinopriL [Zestril] 10 mg PO DAILY 04/08/18 12/01/20 atenoloL [Tenormin] 50 mg PO DAILY 10/12/19 12/01/20 cilostazoL [Pletal] 100 mg PO BID 10/12/19 12/01/20 Gabapentin [Neurontin] 200 mg PO HS 04/10/20 12/01/20 clonazePAM [KlonoPIN] 0.5 mg PO HS 04/10/20 12/01/20 Aspirin [Adult Low Dose Aspirin EC] 81 mg PO DAILY 10/04/20 12/01/20 Cholecalciferol [Vitamin D3 (10 10 mcg PO DAILY 10/04/20 12/01/20 Mcg = 400 Iu)] L.acidoph,Paracasei, B.lactis 1 each PO DAILY 10/04/20 12/01/20 [Probiotic] metFORMIN HCL [Glucophage] 500 mg PO DAILY 10/04/20 12/01/20 Clopidogrel [Plavix] 75 mg PO DAILY 10/18/20 12/01/20 Previous Rx's Medication Instructions Recorded Acetaminophen Tab [Tylenol] 650 mg PO Q6HR PRN #30 tab 04/12/20 Ibuprofen [Motrin] 600 mg PO Q6HR PRN #40 tab 10/23/20 Acetaminophen Tab [Tylenol] 650 mg PO Q6H #30 tab 12/06/20 Docusate [Colace] 100 mg PO BID #20 capsule 12/06/20 Ibuprofen [Motrin] 600 mg PO Q6HR PRN #40 tab 12/06/20 oxyCODONE HCL [OxyIR] 5 mg PO Q6H PRN 3 Days #10 tab 12/06/20 Albuterol Inhaler [Ventolin Hfa 1 - 2 puff INHALATION Q4HR PRN #1 07/23/23 Inhaler] each Azithromycin [Zithromax Z Pack] 1 tab PO DIRECTED #6 tab 07/23/23 predniSONE 50 mg PO DAILY #5 tab 07/23/23 Allergies Allergy/AdvReac Type Severity Reaction Status Date / Time Sulfa (Sulfonamide Allergy Unknown Verified 12/01/20 09:01 Antibiotics) Review of Systems ROS Statement: Those systems with pertinent positive or pertinent negative responses have been documented in the HPI. ROS Other: All systems not noted in ROS Statement are negative. Past Medical History Past Medical History: Coronary Artery Disease (CAD), COPD, Diabetes Mellitus, Deep Vein Thrombosis (DVT), GERD/Reflux, Hyperlipidemia, Hypertension, Osteoarthritis (OA), Rheumatoid Arthritis (RA), Vascular Disorder Additional Past Medical History / Comment(s): Popliteal artery aneurysm, DIVERTICULITIS History of Any Multi-Drug Resistant Organisms: None Reported Past Surgical History: Adenoidectomy, Appendectomy, Back Surgery, Heart Catheterization, Tonsillectomy Additional Past Surgical History / Comment(s): Fem Pop Bypass secondary to popliteal artery aneurysm. Cataract surgery, pilonadal cyst, left medial thigh excision debridement, COLONOSCOPY Past Anesthesia/Blood Transfusion Reactions: Previous Problems w/ Anesthesia Additional Past Anesthesia/Blood Transfusion Reaction / Comment(s): SOB after last procedure related to COPD per pt. Past Psychological History: No Psychological Hx Reported Smoking Status: Former smoker - Past Family History Brother(s) Family Medical History: Diabetes Mellitus Father Family Medical History: Cancer General Exam Limitations: no limitations General appearance: alert, in no apparent distress Head exam: Present: atraumatic, normocephalic Eye exam: Present: normal appearance, PERRL ENT exam: Present: normal exam Neck exam: Present: normal inspection. Absent: tenderness, meningismus Respiratory exam: Present: respiratory distress, wheezes, decreased breath sounds Cardiovascular Exam: Present: regular rate, normal rhythm GI/Abdominal exam: Present: soft. Absent: distended, tenderness, guarding Extremities exam: Present: normal inspection, normal capillary refill Neurological exam: Present: alert, oriented X3, CN II-XII intact. Absent: motor sensory deficit Psychiatric exam: Present: normal affect, normal mood Skin exam: Present: warm, dry, intact. Absent: cyanosis, diaphoretic Course Vital Signs 07/23/23 07/23/23 07/23/23 17:35 18:58 19:15 Temperature 97.9 F Pulse Rate 67 60 64 Respiratory 20 Rate Blood Pressure 200/117 O2 Sat by Pulse 95 Oximetry 07/23/23 19:37 Temperature Pulse Rate Respiratory Rate Blood Pressure 127/76 O2 Sat by Pulse Oximetry Medical Decision Making - Medical Decision Making Was pt. sent in by a medical professional or institution (, PA, [facility] [employer], urgent c are, hospital, or long-term...) When possible be specific @ -No Did you speak to anyone other than the patient for history (EMS, parent, family, police, friend...)? What history was obtained from this source @ -No Did you review nursing and triage notes (agree or disagree)? Why? @ -I reviewed and agree with nursing and triage notes Were old charts reviewed (outside hosp., previous admission, EMS record, old EKG, old radiological studies, urgent care reports/EKG's, long-term records)? Report findings @ -No old charts were reviewed Differential Diagnosis (chest pain, altered mental status, abdominal pain women, abdominal pain men, vaginal bleeding, weakness, fever, dyspnea, syncope, headache, dizziness, GI bleed, back pain, seizure, CVA, palpatations, mental health, musculoskeletal)? @ -Differential Dyspnea: Coronary syndrome, arrhythmia, tamponade, asthma, COPD, pulmonary embolism, pneumonia, pneumothorax, pulmonary effusion, anaphylaxis, diabetic ketoacidosis, flailed chest, pulmonary contusion, diaphragmatic rupture, anemia, neuromuscular, this is not meant to be an all-inclusive list. EKG interpreted by me (3pts min.). @ -EKG: Sinus rhythm rate of 68, ME interval 137, QRS duration 108, QTC [address] segment elevation. X-rays interpreted by me (1pt min.). @ -[Chest x-ray negative for focal pneumonia, bilateral atelectasis, no pneumothorax. CT interpreted by me (1pt min.). @ -None done U/S interpreted by me (1pt. min.). @ -None done What testing was considered but not performed or refused? (CT, X-rays, U/S, labs)? Why? @ -None What meds were considered but not given or refused? Why? @ -None Did you discuss the management of the patient with other professionals (professionals i.e. , PA, [employer], lab, RT, psych nurse, foster care social worker, automotive brake specialist, teacher, correction officer reformatory, counseling case manager)? Give summary @ -No Was smoking cessation discussed for >3mins.? @ -No Was critical care preformed (if so, how long)? @ -No Were there social determinants of health that impacted care today? How? (Homelessness, low income, unemployed, alcoholism, drug addiction, transportation, low edu. Level, literacy, decrease access to med. care, usp, rehab)? @ -No Was there de-escalation of care discussed even if they declined (Discuss DNR or withdrawal of care, Hospice)? DNR status @ -No What co-morbidities impacted this encounter? (DM, HTN, Smoking, COPD, CAD, Cancer, CVA, ARF, Chemo, Hep., AIDS, mental health diagnosis, sleep apnea, morbid obesity)? @COPD, former smoker Was patient admitted / discharged? Hospital course, mention meds given and route, prescriptions, significant lab abnormalities, going to OR and other pertinent info. @73-year-old male with increased dyspnea. Patient has decreased air entry bilaterally with expiratory wheezing. He's given albuterol, Atrovent, steroids in the emergency department with significant improvement in symptoms. Chest x- rays negative for focal pneumonia. He has normal CBC, normal CMP, negative troponin, negative BMP. Patient is offered observation for further treatment but prefers outpatient treatment at this time. He is given referral to pulmonology. He is prescribed prednisone, azithromycin, and albuterol. Strict return parameters are discussed. Undiagnosed new problem with uncertain prognosis? @ -No Drug Therapy requiring intensive monitoring for toxicity (Heparin, Nitro, Insulin, Cardizem)? @ -No Were any procedures done? @ -No Diagnosis/symptom? @ -COPD exacerbation Acute, or Chronic, or Acute on Chronic? @Acute Uncomplicated (without systemic symptoms) or Complicated (systemic symptoms)? @ -default Side effects of treatment? @ -No Exacerbation, Progression, or Severe Exacerbation? @ -No Poses a threat to life or bodily function? How? (Chest pain, USA, PA, pneumonia, PE, COPD, DKA, ARF, appy, cholecystitis, CVA, Diverticulitis, Homicidal, Suicidal, threat to staff... and all critical care pts) @ -[Low risk at this time - Lab Data Result diagrams: 07/23/23 18:16 07/23/23 18:16 Lab Results 07/23/23 07/23/23 07/23/23 Range/Units 18:16 18:16 18:16 WBC 8.8 (3.8-10.6) k/uL RBC 5.58 (4.30-5.90) m/uL Hgb 16.7 (13.0-17.5) gm/dL Hct 50.8 (39.0-53.0) % MCV 91.2 (80.0-100.0) fL MCH 30.0 (25.0-35.0) pg MCHC 32.9 (31.0-37.0) g/dL RDW 13.7 (11.5-15.5) % Plt Count 190 (150-450) k/uL MPV 8.4 Neutrophils % 69 % Lymphocytes % 13 % Monocytes % 7 % Eosinophils % 6 % Basophils % 0 % Neutrophils # 6.1 (1.3-7.7) k/uL Lymphocytes # 1.2 (1.0-4.8) k/uL Monocytes # 0.6 (0-1.0) k/uL Eosinophils # 0.5 (0-0.7) k/uL Basophils # 0.0 (0-0.2) k/uL PT 10.4 (10.0-12.5) sec INR 0.9 (<1.2) APTT 24.3 (22.0-30.0) sec Sodium 138 (137-145) mmol/L Potassium 4.8 (3.5-5.1) mmol/L Chloride 105 (98-107) mmol/L Carbon Dioxide 24 (22-30) mmol/L Anion Gap 9 mmol/L BUN 18 (9-20) mg/dL Creatinine 0.74 (0.66-1.25) mg/dL Est GFR (CKD-EPI)AfAm >90 (>60 ml/min/1.73 sqM) Est GFR (CKD-EPI)NonAf >90 (>60 ml/min/1.73 sqM) Glucose 98 (74-99) mg/dL Plasma Lactic Acid Edwin (0.7-2.0) mmol/L Calcium 9.1 (8.4-10.2) mg/dL Magnesium 2.0 (1.6-2.3) mg/dL Total Bilirubin 0.8 (0.2-1.3) mg/dL AST 30 (17-59) U/L ALT 33 (4-49) U/L Alkaline Phosphatase 116 (38-126) U/L Troponin I (0.000-0.034) ng/mL NT-Pro-B Natriuret Pep 75 pg/mL Total Protein 6.5 (6.3-8.2) g/dL Albumin 3.9 (3.5-5.0) g/dL 07/23/23 07/23/23 Range/Units 18:16 18:16 WBC (3.8-10.6) k/uL RBC (4.30-5.90) m/uL Hgb (13.0-17.5) gm/dL Hct (39.0-53.0) % MCV (80.0-100.0) fL MCH (25.0-35.0) pg MCHC (31.0-37.0) g/dL RDW (11.5-15.5) % Plt Count (150-450) k/uL MPV Neutrophils % % Lymphocytes % % Monocytes % % Eosinophils % % Basophils % % Neutrophils # (1.3-7.7) k/uL Lymphocytes # (1.0-4.8) k/uL Monocytes # (0-1.0) k/uL Eosinophils # (0-0.7) k/uL Basophils # (0-0.2) k/uL PT (10.0-12.5) sec INR (<1.2) APTT (22.0-30.0) sec Sodium (137-145) mmol/L Potassium (3.5-5.1) mmol/L Chloride (98-107) mmol/L Carbon Dioxide (22-30) mmol/L Anion Gap mmol/L BUN (9-20) mg/dL Creatinine (0.66-1.25) mg/dL Est GFR (CKD-EPI)AfAm (>60 ml/min/1.73 sqM) Est GFR (CKD-EPI)NonAf (>60 ml/min/1.73 sqM) Glucose (74-99) mg/dL Plasma Lactic Acid Edwin 1.6 (0.7-2.0) mmol/L Calcium (8.4-10.2) mg/dL Magnesium (1.6-2.3) mg/dL Total Bilirubin (0.2-1.3) mg/dL AST (17-59) U/L ALT (4-49) U/L Alkaline Phosphatase (38-126) U/L Troponin I <0.012 (0.000-0.034) ng/mL NT-Pro-B Natriuret Pep pg/mL Total Protein (6.3-8.2) g/dL Albumin (3.5-5.0) g/dL Disposition Clinical Impression: COPD (chronic obstructive pulmonary disease) Disposition: HOME SELF-CARE Condition: Fair Instructions (If sedation given, give patient instructions): COPD (Chronic Obstructive Pulmonary Disease) (ED) Prescriptions: predniSONE 50 mg PO DAILY #5 tab Albuterol Inhaler [Ventolin Hfa Inhaler] 1 - 2 puff INHALATION Q4HR PRN #1 each PRN Reason: Shortness Of Breath Azithromycin [Zithromax Z Pack] 1 tab PO DIRECTED #6 tab Is patient prescribed a controlled substance at d/c from ED?: No Referrals: Alona Navarrete DO [Primary Care Provider] - 1-2 days Sukumar Bermudez MD [STAFF PHYSICIAN] - 1-2 days Time of Disposition: 19:39
[2023-07-23 18:26] LABS: Basophils % (A) 0 %; Eosinophils # (A) 0.5 k/uL (0-0.7); Eosinophils % (A) 6 %; HCT 50.8 % (39.0-53.0); HGB 16.7 gm/dL (13.0-17.5); Lymphocytes # (A) 1.2 k/uL (1.0-4.8); Lymphocytes % (A) 13 %; MCHC 32.9 g/dL (31.0-37.0); MCV 91.2 fL (80.0-100.0); Mean Platelet Volume 8.4; Monocytes # (A) 0.6 k/uL (0-1.0); Monocytes % (A) 7 %; Neutrophils # (A) 6.1 k/uL (1.3-7.7); Neutrophils % (A) 69 %; Platelet Count 190 k/uL (150-450); RBC 5.58 m/uL (4.30-5.90); RDW 13.7 % (11.5-15.5); WBC 8.8 k/uL (3.8-10.6)
[2023-07-23 18:37] LABS: ALT 33 U/L (4-49); AST 30 U/L (17-59); African American GFR (CKD) >90 (>60 ml/min/1.73 sqM); Albumin 3.9 g/dL (3.5-5.0); Alkaline Phosphatase 116 U/L (38-126); Anion Gap 9 mmol/L; Blood Urea Nitrogen 18 mg/dL (9-20); Calcium 9.1 mg/dL (8.4-10.2); Carbon Dioxide 24 mmol/L (22-30); Chloride 105 mmol/L (98-107); Glucose 98 mg/dL (74-99); Non-African American GFR(CKD) >90 (>60 ml/min/1.73 sqM); Potassium 4.8 mmol/L (3.5-5.1); Sodium 138 mmol/L (137-145); Total Bilirubin 0.8 mg/dL (0.2-1.3); Total Protein 6.5 g/dL (6.3-8.2)
[2023-07-23 18:41] LABS: INR 0.9 (<1.2); Partial Thromboplastin Time 24.3 sec (22.0-30.0); Prothrombin Time 10.4 sec (10.0-12.5)
[2023-07-23 18:45] LABS: NT-Pro-B-Type Natriuretic Pept 75 pg/mL
--- NOTE | 2023-07-23 18:47 | XR ---
EXAMINATION TYPE: XR chest 2V DATE OF EXAM: 07/23/2023 COMPARISON: 10/12/2019 HISTORY: 73 year-old male shortness of breath, difficulty breathing TECHNIQUE: PA and lateral views FINDINGS: Heart normal size. Mild atherosclerotic arch calcifications. Mild interstitial prominence. Some stran dy atelectasis in the lower lungs. Hyperinflation. No consolidation or pleural effusion. IMPRESSION: COPD. Strandy atelectasis lower lungs. No definite acute process.
[2023-07-23 20:19] VITALS: BP 140/81; PULSE 69; RESP 18
== END 2023-07-23 20:01 | disposition home or self-care (01) ==
LOC: EC 17:19
DX: J44.9 Chronic obstructive pulmonary disease, unspecified (principal); I45.10 Unspecified right bundle-branch block; I25.10 Atherosclerotic heart disease of native coronary artery without angina pectoris; E11.9 Type 2 diabetes mellitus without complications; E78.5 Hyperlipidemia, unspecified; I10 Essential (primary) hypertension; M19.90 Unspecified osteoarthritis, unspecified site; Z87.891 Personal history of nicotine dependence; Z79.82 Long term (current) use of aspirin; Z79.84 Long term (current) use of oral hypoglycemic drugs; Z79.899 Other long term (current) drug therapy; Z88.2 Allergy status to sulfonamides; Z79.1 Long term (current) use of non-steroidal anti-inflammatories (NSAID); Z79.02 Long term (current) use of antithrombotics/antiplatelets; Z88.1 Allergy status to other antibiotic agents; Z90.49 Acquired absence of other specified parts of digestive tract
CPT/HCPCS: 36415; 94640; 93005; 83880; 80053; 83605; 83735; 84484; 85025; 85610; 85730; 71046; 99285; 96374; J2930